=== PATIENT | female | born 1930 | race Caucasian/White ===

== ENCOUNTER 2020-05-03 12:32 | Inpatient (IN) ==
[2020-05-03] MEDS ORDERED: SODIUM CHLORIDE 0.9% 500 ML IV ONE (12:44)
--- NOTE | 2020-05-03 12:51 | Emergency Department Note ---
History of Present Illness General Chief complaint: Abnormal Labs/Diagnostic Testing Stated complaint: abnormal labs / [facility] Time Seen by Provider: 05/03/20 12:39 Source: patient Mode of arrival: ambulatory Limitations: no limitations History of Present Illness This patient comes in after being [facility] from [facility] to have an abnormal labs. She had a white count of 29,000 she is status post gallbladder removal on Wednesday or at [place]. She says she has had a urinary infection although I do not see any antibiotics on her JAN. She is afebrile. She has had some minimal abdominal discomfort and says her bowels been moving. She does say she has urinary discomfort. No problems with her incisions. No cough or shortness of breath. She said that she fell about 2 weeks ago and broke her back. No new numbness or weakness. Home Medications Home Medications Medication Instructions Recorded Confirmed Type acetaminophen 650 mg PO Q4H PRN MDD 3G 05/03/20 05/03/20 History bisacodyl 10 mg WA .Q3D PRN 05/03/20 05/03/20 History diphenhydramine HCl [Benadryl] 25 mg PO HS PRN 05/03/20 05/03/20 History docusate sodium 100 mg PO BID PRN 05/03/20 05/03/20 History levothyroxine 75 mcg PO QAM 05/03/20 05/03/20 History lidocaine 1 patch TOPICAL DAILY 05/03/20 05/03/20 History lisinopril-hydrochlorothiazide 1 tab PO DAILY 05/03/20 05/03/20 History omeprazole 20 mg PO QAM 05/03/20 05/03/20 History simethicone 80 mg PO Q4H PRN 05/03/20 05/03/20 History simvastatin 20 mg PO HS 05/03/20 05/03/20 History tramadol 25 mg PO Q6H PRN 05/03/20 05/03/20 History Allergies Allergy/AdvReac Type Severity Reaction Status Date / Time hydrocodone Allergy Unknown Verified 05/03/20 12:55 Past Med/Surg History Medical History (Updated 05/03/20 @ 19:34 by Jimy Vallecillo MD) Choledocholithiasis Cholelithiasis Hyperlipidemia Hypertension Hypothyroidism Surgical History (Updated 06/19/20 @ 19:34 by Jimy Vallecillo MD) S/P laparoscopic cholecystectomy (Acute) Status post endoscopic retrograde cholangiopancreatography Social History Feels Safe at Home: Yes Smoking Status: Never smoker Immunizations: I have reviewed the nursing notes and notes sent [facility] from the [facility] Review of Systems A total of 10 systems reviewed and were otherwise negative Physical Exam Vital Signs Vital Signs - 24 hr 05/03/20 12:45 05/03/20 12:54 05/03/20 15:21 Temperature 36.5 C Temperature Source Oral Pulse Rate 87 Pulse Rate [Apical] 84 Pulse Rhythm [Apical] Respiratory Rate 20 18 Respiratory Effort / Characteristics Respiratory Depth Blood Pressure 205/99 H Blood Pressure [Right Arm] 179/87 H Blood Pressure Mean 134 Blood Pressure Mean [Right Arm] 117 Pulse Oximetry 96 93 Oxygen Delivery Method Room Air Room Air Room Air Sepsis Recent Fever Within 48 Hours No Sepsis New/Unexplained Change in Mental Status No Sepsis Action Taken by Nursing No Action Required 05/03/20 16:00 05/03/20 17:02 05/03/20 17:36 Temperature Temperature Source Pulse Rate Pulse Rate [Apical] 86 90 85 Pulse Rhythm [Apical] Regular Respiratory Rate 18 18 18 Respiratory Effort / Characteristics Non-Labored Non-Labored Non-Labored Respiratory Depth Normal Normal Normal Blood Pressure Blood Pressure [Right Arm] 186/84 H 193/87 H 186/84 H Blood Pressure Mean Blood Pressure Mean [Right Arm] 118 122 118 Pulse Oximetry 95 96 95 Oxygen Delivery Method Room Air Room Air Room Air Sepsis Recent Fever Within 48 Hours Sepsis New/Unexplained Change in Mental Status Sepsis Action Taken by Nursing 05/03/20 18:30 05/03/20 19:49 Temperature 36.9 C Temperature Source Oral Pulse Rate Pulse Rate [Apical] 84 93 H Pulse Rhythm [Apical] Respiratory Rate 18 20 Respiratory Effort / Characteristics Non-Labored Non-Labored Respiratory Depth Normal Normal Blood Pressure Blood Pressure [Right Arm] 186/95 H 188/78 H Blood Pressure Mean Blood Pressure Mean [Right Arm] 125 114 Pulse Oximetry 93 95 Oxygen Delivery Method Room Air Sepsis Recent Fever Within 48 Hours Sepsis New/Unexplained Change in Mental Status Sepsis Action Taken by Nursing General: Well developed well nourished cachectic older female who appears in no acute distress, breathing comfortably on room air. Normal speech HEENT: Normal cephalic atraumatic. Pupils are equal round and reactive to light. Sclera anicteric. Extraocular movements are intact. Oropharynx is pink with moist mucous membranes. No swelling of the mouth lips or tongue. Neck: Supple with a midline trachea. No meningeal signs or stiffness, no JVD or bruits. No Stridor. Chest: Clear to auscultation bilaterally. No wheezes or rhonchi. No increased work of breathing. Heart: Regular rate and rhythm without murmurs or gallops. Abdomen: Soft nontender, nondistended without rebound guarding or rigidity. Well-healing incisions without redness pus or drainage Extremities: No cyanosis clubbing or edema. No calf tenderness or assymetry Spine/Back. Non tender to palpation. No CVA tenderness Skin: Good turgor without rashes. Neurologic exam: Cranial nerves two through 12 are intact. Motor and sensation are intact and symmetrical throughout. Course Administered Medications Ioversol (Optiray 320 100ml) 94 ml IV ONCE PRN PRN Reason: Interaction Checking Stop: 05/07/20 14:22 Last Admin: 05/03/20 14:24 Dose: 94 ml Documented by: [id number] Discontinued Medications Sodium Chloride (Nss) 500 mls @ 999 mls/hr IV .Q31M ONE Stop: 05/03/20 13:14 Last Infusion: 05/03/20 14:12 Dose: 0 mls/hr Documented by: [id number] Admin: 05/03/20 13:35 Dose: 999 mls/hr Documented by: [id number] Piperacillin Sod/Tazobactam Sod (Zosyn) 4.5 gm in 120 mls @ 240 mls/hr IV NOW ONE Stop: 05/03/20 13:29 Last Infusion: 05/03/20 14:12 Dose: 0 mls/hr Documented by: [id number] Admin: 05/03/20 13:35 Dose: 240 mls/hr Documented by: [id number] Acetaminophen (Ofirmev) 1,000 mg in 100 mls @ 400 mls/hr IV NOW STA Stop: 05/03/20 19:52 Last Admin: 05/03/20 19:50 Dose: 400 mls/hr Documented by: [id number] Critical Care Time Critical Care Time: Yes Total Critical Care Time: 32 Due to the patient's complicated presentation with a postop complication/possible infection, she had to have IV antibiotics IV fluids and multiple consultations and reevaluation in the ED. I have personally spent greater than 32 minutes of critical care time in the direct management of this patient. This includes bedside care, interpretation of diagnostic studies, and testing, discussion with consultants, patient, and family members, and other required patient management activities. This 32 minutes is in excess of all separately billable procedures. Medical Decision Making Differential Diagnosis Differential diagnosis includes, sepsis, UTI, postop complication, electrolyte or metabolic abnormalities, dehydration Medical Records Attestation: I reviewed the patient's medical records. Home Medications Current Medication List: was personally reviewed by me Laboratory Data Attestation: I reviewed the patient's lab results. Result diagrams: 05/03/20 12:45 05/03/20 12:45 Lab Results 05/03/20 05/03/20 05/03/20 Range/Units 12:45 12:45 12:45 WBC 31.04 H* (4.8-10.8) K/uL RBC 4.26 (4.2-5.4) M/uL Hgb 12.7 (12.0-16.0) g/dL Hct 38.7 (37-47) % MCV 90.8 (80-100) fL MCH 29.8 (25-34) pg MCHC 32.8 (32-36) g/dL RDW Std Deviation 48.5 H (36.4-46.3) fL RDW Coeff of Isai 14.6 H (11.5-14.5) % Plt Count 326 (130-400) K/uL MPV 9.8 (7.4-10.4) fL Immature Gran % (Auto) 4.0 % Neut % (Auto) 84.8 % Lymph % (Auto) 4.2 % [place] % (Auto) 6.6 % Eos % (Auto) 0.1 % Baso % (Auto) 0.3 % Immature Gran # (Auto) 1.24 H (0.00-0.02) K/uL Neut # (Auto) 26.33 H (1.4-6.5) K/uL Lymph # (Auto) 1.30 (1.2-3.4) K/uL [place] # (Auto) 2.05 H (0.11-0.59) K/uL Eos # (Auto) 0.02 (0-0.5) K/uL Baso # (Auto) 0.10 (0-0.2) K/uL PT 12.4 H (9.0-12.0) Seconds INR 1.2 H (0.9-1.1) APTT 31.3 H (21.0-31.0) Seconds PTT Ratio 1.1 Sodium (136-145) mmol/L Potassium (3.5-5.1) mmol/L Chloride (98-107) mmol/L Carbon Dioxide (21-32) mmol/L Anion Gap (3-11) BUN (7-18) mg/dl Creatinine (0.6-1.2) mg/dl Est Cr Clr Drug Dosing ml/min Est GFR ( Amer) Est GFR (Non-Af Amer) BUN/Creatinine Ratio (10-20) Glucose (70-99) mg/dl POC Glucose (70-99) mg/dl Lactate (0.4-2.0) mmol/L Calcium (8.5-10.1) mg/dl Magnesium (1.8-2.4) mg/dl Total Bilirubin (0.2-1) mg/dl AST (15-37) U/L ALT (12-78) U/L Alkaline Phosphatase (45-117) U/L Troponin I (0-0.045) ng/ml Total Protein (6.4-8.2) gm/dl Albumin (3.4-5.0) gm/dl Globulin (2.5-4.0) gm/dl Albumin/Globulin Ratio (0.9-2) Procalcitonin 3.18 H (0-0.5) ng/ml Urine Color Urine Appearance (Clear) Urine pH (4.5-7.5) Ur Specific [place] (1.000-1.030) Urine Protein (Negative) Urine Glucose (UA) (Negative) Urine Ketones (Negative) Urine Blood (Negative) Urine Nitrite (Negative) Urine Bilirubin (Negative) Urine Urobilinogen (Negative) Ur Leukocyte Esterase (Negative) Urine WBC (Auto) (0-5) /hpf Urine RBC (Auto) (0-4) /hpf U Hyaline Cast (Auto) (0-5) /lpf U Epithel Cells (Auto) (0-5) /lpf Urine Bacteria (Auto) (Negative) 05/03/20 05/03/20 05/03/20 Range/Units 12:45 12:45 12:45 WBC (4.8-10.8) K/uL RBC (4.2-5.4) M/uL Hgb (12.0-16.0) g/dL Hct (37-47) % MCV (80-100) fL MCH (25-34) pg MCHC (32-36) g/dL RDW Std Deviation (36.4-46.3) fL RDW Coeff of Isai (11.5-14.5) % Plt Count (130-400) K/uL MPV (7.4-10.4) fL Immature Gran % (Auto) % Neut % (Auto) % Lymph % (Auto) % [place] % (Auto) % Eos % (Auto) % Baso % (Auto) % Immature Gran # (Auto) (0.00-0.02) K/uL Neut # (Auto) (1.4-6.5) K/uL Lymph # (Auto) (1.2-3.4) K/uL [place] # (Auto) (0.11-0.59) K/uL Eos # (Auto) (0-0.5) K/uL Baso # (Auto) (0-0.2) K/uL PT (9.0-12.0) Seconds INR (0.9-1.1) APTT (21.0-31.0) Seconds PTT Ratio Sodium 132 L (136-145) mmol/L Potassium 3.0 L (3.5-5.1) mmol/L Chloride 94 L (98-107) mmol/L Carbon Dioxide 29 (21-32) mmol/L Anion Gap 9.0 (3-11) BUN 32 H (7-18) mg/dl Creatinine 0.82 (0.6-1.2) mg/dl Est Cr Clr Drug Dosing 33.6 ml/min Est GFR ( Amer) 73.5 Est GFR (Non-Af Amer) 63.4 BUN/Creatinine Ratio 39.6 H (10-20) Glucose 88 (70-99) mg/dl POC Glucose 86 (70-99) mg/dl Lactate 1.4 (0.4-2.0) mmol/L Calcium 8.6 (8.5-10.1) mg/dl Magnesium 2.0 (1.8-2.4) mg/dl Total Bilirubin 0.5 (0.2-1) mg/dl AST 31 (15-37) U/L ALT 24 (12-78) U/L Alkaline Phosphatase 308 H (45-117) U/L Troponin I < 0.015 (0-0.045) ng/ml Total Protein 6.5 (6.4-8.2) gm/dl Albumin 1.8 L (3.4-5.0) gm/dl Globulin 4.7 H (2.5-4.0) gm/dl Albumin/Globulin Ratio 0.4 L (0.9-2) Procalcitonin (0-0.5) ng/ml Urine Color Urine Appearance (Clear) Urine pH (4.5-7.5) Ur Specific [place] (1.000-1.030) Urine Protein (Negative) Urine Glucose (UA) (Negative) Urine Ketones (Negative) Urine Blood (Negative) Urine Nitrite (Negative) Urine Bilirubin (Negative) Urine Urobilinogen (Negative) Ur Leukocyte Esterase (Negative) Urine WBC (Auto) (0-5) /hpf Urine RBC (Auto) (0-4) /hpf U Hyaline Cast (Auto) (0-5) /lpf U Epithel Cells (Auto) (0-5) /lpf Urine Bacteria (Auto) (Negative) 05/03/20 Range/Units 15:30 WBC (4.8-10.8) K/uL RBC (4.2-5.4) M/uL Hgb (12.0-16.0) g/dL Hct (37-47) % MCV (80-100) fL MCH (25-34) pg MCHC (32-36) g/dL RDW Std Deviation (36.4-46.3) fL RDW Coeff of Isai (11.5-14.5) % Plt Count (130-400) K/uL MPV (7.4-10.4) fL Immature Gran % (Auto) % Neut % (Auto) % Lymph % (Auto) % [place] % (Auto) % Eos % (Auto) % Baso % (Auto) % Immature Gran # (Auto) (0.00-0.02) K/uL Neut # (Auto) (1.4-6.5) K/uL Lymph # (Auto) (1.2-3.4) K/uL [place] # (Auto) (0.11-0.59) K/uL Eos # (Auto) (0-0.5) K/uL Baso # (Auto) (0-0.2) K/uL PT (9.0-12.0) Seconds INR (0.9-1.1) APTT (21.0-31.0) Seconds PTT Ratio Sodium (136-145) mmol/L Potassium (3.5-5.1) mmol/L Chloride (98-107) mmol/L Carbon Dioxide (21-32) mmol/L Anion Gap (3-11) BUN (7-18) mg/dl Creatinine (0.6-1.2) mg/dl Est Cr Clr Drug Dosing ml/min Est GFR ( Amer) Est GFR (Non-Af Amer) BUN/Creatinine Ratio (10-20) Glucose (70-99) mg/dl POC Glucose (70-99) mg/dl Lactate (0.4-2.0) mmol/L Calcium (8.5-10.1) mg/dl Magnesium (1.8-2.4) mg/dl Total Bilirubin (0.2-1) mg/dl AST (15-37) U/L ALT (12-78) U/L Alkaline Phosphatase (45-117) U/L Troponin I (0-0.045) ng/ml Total Protein (6.4-8.2) gm/dl Albumin (3.4-5.0) gm/dl Globulin (2.5-4.0) gm/dl Albumin/Globulin Ratio (0.9-2) Procalcitonin (0-0.5) ng/ml Urine Color Yellow Urine Appearance Clear (Clear) Urine pH 6.0 (4.5-7.5) Ur Specific [place] 1.035 H (1.000-1.030) Urine Protein 1+ H (Negative) Urine Glucose (UA) Negative (Negative) Urine Ketones 1+ H (Negative) Urine Blood 2+ H (Negative) Urine Nitrite Negative (Negative) Urine Bilirubin Negative (Negative) Urine Urobilinogen Negative (Negative) Ur Leukocyte Esterase Negative (Negative) Urine WBC (Auto) 1-5 (0-5) /hpf Urine RBC (Auto) 10-30 H (0-4) /hpf U Hyaline Cast (Auto) 1-5 (0-5) /lpf U Epithel Cells (Auto) 5-10 H (0-5) /lpf Urine Bacteria (Auto) Negative (Negative) Imaging Data Attestation: I personally reviewed and interpreted this imaging study as follows: My Impression: Chest x-ray no acute infiltrate, failure, pneumothorax. Small pleural effusion. Radiologist's Impression: CAT scan of the abdomen pelvis with IV contrast 1. The gallbladder is surgically absent and the common bile duct stent is in place. Pneumobilia suggests patency of the stent. 2. There are several large and multiloculated fluid collections in the upper and mid abdomen as detailed above. Given the patient's history and leukocytosis these are highly concerning for abscesses. Bile leak would be impossible to exclude, and if there is clinical concern for bile leak a nuclear hepatobiliary scan should be considered. 3. Small to moderate left pleural effusion with associated atelectasis. 4. Gastric and duodenal edema is likely on a reactive basis. 5. There is a mild and subacute appearing compression fracture of L1. Correlate for point tenderness. 6. Foci of gas within the bladder lumen are likely related to rotation. Correlation with clinical findings and urinalysis will be required. 7. Trace abdominopelvic ascites. 8. Additional findings as above. Chest x-ray there is a small pleural effusion otherwise no acute ECG Data Attestation: I personally reviewed and interpreted this ECG as follows: Indication: + weakness Rate (beats per minute): 93 ECG Intervals/blocks: + Normal QRS, + Normal QT and + Normal WA ECG ST segments: + Normal ST segments ECG Findings: + Poor R wave progression Comparison ECG Date: no prior available MDM Narrative This patient comes in as described above. She was ent [facility] after having an extremely elevated white count of 29,000. Given her recent surgery there certainly concern for sepsis. She tells me she has urinary symptoms as well. Her incisions do look well. Her blood sugar was also low on the labs were checked at 44 we checked a BSG here and was 82 which is much improved. She is normotensive and afebrile here but with a high white count I still feel that she is at risk for sepsis in light of this we did order empiric antibiotic with Zosyn 4.5 g IV. Our pharmacist to confirm with the [facility] that she has no known antibiotic allergies and her only allergy was hydrocodone. She was given an IV fluid bolus multiple blood test was obtained including blood cultures urinalysis and urine culture and chest x-ray. She was reassessed frequently. Her white count was significant elevated above 30,000. Chest x-ray was a small pleural effusion otherwise no acute findings. CAT scan shows fluid collections which could either be related to infection or bile leak. With the elevated white count there is concern for abscess. I did consult Dr. Bryant from surgery as well as Dr. Monahan from GI and they both saw her in the emergency department. The patient has remained medically stable and looks well her abdomen is relatively benign and not severely tender. Dr. Monahan feels that he will place another drain endoscopically and feel she can stay here for treatment. I talked to the daughter multiple times on the phone and she agrees with the plan. The patient will be admitted for further treatment and evaluation. Continuous cardiac monitoring: An order was placed for continuous cardiac monitoring. The patient was noted to have a rate of 84. Impression & Plan Bile leak, postoperative, Abnormal CT of the abdomen, S/P laparoscopic cholecystectomy, Elevated WBC count Discharge Plan Visit Data Chief Complaint: Abnormal Labs/Diagnostic Testing Stated Complaint: abnormal labs / [facility] ED Provider: Jimy Vallecillo Discharge Problem: Bile leak, postoperative, Abnormal CT of the abdomen, S/P laparoscopic cholecystectomy, Elevated WBC count Forms Stand Alone Forms: [facility] [employer] Prescriptions Prescriptions: No Action bisacodyl 10 mg Suppository 10 mg WA .Q3D PRN (Reason: Constipation) RF: 0 omeprazole 20 mg Capsule,Delayed Release(Dr/Ec) 20 mg PO QAM RF: 0 lidocaine 4 % Adhesive Patch,Medicated 1 patch TOPICAL DAILY RF: 0 diphenhydramine HCl [Benadryl] 25 mg Capsule 25 mg PO HS PRN (Reason: .ITCH OR INSOMNIA) RF: 0 docusate sodium 100 mg Capsule 100 mg PO BID PRN (Reason: Constipation) RF: 0 levothyroxine 75 mcg Tablet 75 mcg PO QAM RF: 0 lisinopril-hydrochlorothiazide 20-12.5 mg Tablet 1 tab PO DAILY RF: 0 simvastatin 20 mg Tablet 20 mg PO HS RF: 0 tramadol 50 mg Tablet 25 mg PO Q6H PRN (Reason: .MOD-SEVERE PAIN # 6-10) RF: 0 acetaminophen 325 mg Tablet 650 mg PO Q4H MDD 3G PRN (Reason: .# 1-5 PAIN) RF: 0 simethicone 80 mg Tablet,Chewable 80 mg PO Q4H PRN (Reason: .GAS) RF: 0 Discharge Problem: Elevated WBC count Qualifiers: Leukocytosis type: other Qualified Code(s): D72.828 - Other elevated white blood cell count
[2020-05-03] MEDS ORDERED: PIPERACILLIN/TAZOBACTAM 4.5 GM/120 ML BAG IV ONE (13:00)
[2020-05-03 13:11] LABS: INR 1.2 (0.9-1.1); Partial Thromboplastin Ratio 1.1; Partial Thromboplastin Time 31.3 Seconds (21.0-31.0); Prothrombin Time 12.4 Seconds (9.0-12.0)
[2020-05-03 13:16] LABS: Alanine Aminotransferase 24 U/L (12-78); Albumin Level 1.8 gm/dl (3.4-5.0); Aspartate Aminotransferase 31 U/L (15-37); BUN Creatinine Ratio 39.6 (10-20); Blood Urea Nitrogen 32 mg/dl (7-18); Calcium 8.6 mg/dl (8.5-10.1); Carbon Dioxide 29 mmol/L (21-32); Chloride 94 mmol/L (98-107); Creatinine Clr Calc Pharmacy 33.6 ml/min; Est GFR (African American) 73.5; Est GFR (Non-African American) 63.4; Glucose 88 mg/dl (70-99); Sodium 132 mmol/L (136-145)
[2020-05-03 13:17] LABS: Hematocrit (blood only) 38.7 % (37-47); Hemoglobin 12.7 g/dL (12.0-16.0); Mean Corpuscular Hemoglobin 29.8 pg (25-34); Mean Corpuscular Hgb Conc 32.8 g/dL (32-36); Mean Corpuscular Volume 90.8 fL (80-100); Mean Platelet Volume 9.8 fL (7.4-10.4); Platelet Count 326 K/uL (130-400); RDW Coefficient of Variation 14.6 % (11.5-14.5); RDW Standard Deviation 48.5 fL (36.4-46.3); Red Blood Count 4.26 M/uL (4.2-5.4); White Blood Count 31.04 K/uL (4.8-10.8)
--- NOTE | 2020-05-03 13:18 | XRay Report ---
XR chest 1V portable CLINICAL HISTORY: SEPSIS dyspnea COMPARISON STUDY: No previous studies for comparison. FINDINGS: Small left pleural effusion. Lungs otherwise appear clear. Right hemidiaphragm is smooth. IMPRESSION: Pleural effusion left base. ACT 112: Negative or not required by law. The above report was generated using voice recognition software. It may contain grammatical, syntax or spelling errors. Electronically signed by: Froilan Stinson M.D. 05/03/2020 1:16 PM
[2020-05-03 13:21] LABS: Albumin Globulin Ratio 0.4 (0.9-2); Alkaline Phosphatase 308 U/L (45-117); Bilirubin,Total 0.5 mg/dl (0.2-1); Globulin 4.7 gm/dl (2.5-4.0); Total Protein 6.5 gm/dl (6.4-8.2); Troponin I < 0.015 ng/ml (0-0.045)
[2020-05-03] MEDS ORDERED: IOVERSOL 100ml IV PRN (14:23)
[2020-05-03 14:46] LABS: Basophils % (auto) 0.3 %; Eosinophils # (auto) 0.02 K/uL (0-0.5); Eosinophils % (auto) 0.1 %; Immature Granulocytes # (auto) 1.24 K/uL (0.00-0.02); Lymphocytes % (auto) 4.2 %; Monocytes # (auto) 2.05 K/uL (0.11-0.59); Monocytes % (auto) 6.6 %; Neutrophils # (auto) 26.33 K/uL (1.4-6.5); Neutrophils % (auto) 84.8 %
--- NOTE | 2020-05-03 14:47 | CT Scan Report ---
CT SCAN OF THE ABDOMEN AND PELVIS WITH IV CONTRAST CLINICAL HISTORY: Fever. Status post cholecystectomy. Leukocytosis. COMPARISON STUDY: No priors. TECHNIQUE: Following the IV administration of 94 cc of Optiray 320, CT scan of the abdomen and pelvi s is performed from the lung bases to the proximal femora. Images are reviewed in the axial, sagittal , and coronal planes. IV contrast was administered without complication. A dose lowering technique wa s utilized adhering to the principles of ALARA. CT DOSE: 273.77 mGycm FINDINGS: Lung bases: The heart is normal in size noting a small pericardial effusion. The coronary arteries ar e densely calcified. There is a small to moderate left pleural effusion with associated left basilar atelectasis. Dependent atelectasis is also seen at the right lung base. Liver: The contrast-enhanced liver is normal in size, contour, and attenuation. There is minimal intr ahepatic biliary ductal dilatation. The hepatic veins and portal veins are patent. Gallbladder: The gallbladder surgically absent noting clips in the gallbladder fossa. A common bile d uct stent is in place. Pneumobilia suggests patency of the stent. Spleen: Normal in size and attenuation. Pancreas: Moderately atrophic and grossly unremarkable. Adrenal glands: Unremarkable. Kidneys: The contrast enhanced kidneys demonstrate mild cortical atrophy and are without hydronephros is. The kidneys enhance symmetrically. Numerous subcentimeter cortical hypodensities likely represent cysts but are too small for definitive characterization. No enhancing cortical mass is clearly ident ified. Abdominal vasculature: There is advanced atherosclerotic calcification and mild ectasia of the abdomi nal aorta. Bowel: Edema of the stomach and duodenum is likely on a reactive basis. There is no bowel obstruction . Moderate diverticulosis is noted in the sigmoid colon without CT evidence of acute diverticulitis. The appendix is well-visualized and normal. Peritoneum: There is trace perihepatic and perisplenic ascites, as well as trace free fluid in the pe lvis. No intraperitoneal free air is identified. There are several multiloculated complex fluid colle ctions identified in the upper and mid abdomen. The largest collection is located between the stomach and the left lobe of the liver as seen on image #115. This measures approximately 6 x 7 x 14 cm in a ggregate dimension, and a loculation extends superiorly along the anterior margin of the spleen to th e left hemidiaphragm. A multiloculated collection tracking along the mesentery extends from the anter ior pancreatic head and inferior margin of the stomach tracking inferiorly to level of the pelvic inl et as seen on image #189. This envelopes several mesenteric vessels and measures approximately 10.5 x 7 x 4 cm. A small subhepatic loculated collection on image #141 measures approximately 3.5 x 4.5 x 2 .5 cm. Lymphadenopathy: None. Pelvic viscera: The bladder is distended and there are foci of intraluminal gas. The bladder is other ramesh normal as imaged. The uterus is surgically absent. No adnexal lesion is seen. Skeletal structures: The skeletal structures are osteopenic. Moderate lumbosacral spondylosis is obse rved. There is a mild and subacute appearing superior endplate compression fracture of L1. No lytic o r blastic lesions are seen. There are healed left pubic ring fractures. IMPRESSION: 1. The gallbladder is surgically absent and the common bile duct stent is in place. Pneumobilia sugge sts patency of the stent. 2. There are several large and multiloculated fluid collections in the upper and mid abdomen as detai led above. Given the patient's history and leukocytosis these are highly concerning for abscesses. Bi le leak would be impossible to exclude, and if there is clinical concern for bile leak a nuclear hepa tobiliary scan should be considered. 3. Small to moderate left pleural effusion with associated atelectasis. 4. Gastric and duodenal edema is likely on a reactive basis. 5. There is a mild and subacute appearing compression fracture of L1. Correlate for point tenderness. 6. Foci of gas within the bladder lumen are likely related to rotation. Correlation with clinical fin dings and urinalysis will be required. 7. Trace abdominopelvic ascites. 8. Additional findings as above. ACT 112: Negative or not required by law. Electronically signed by: Panchito Amador M.D. 05/03/2020 2:46 PM
[2020-05-03 15:45] LABS: Appearance Urine Clear (Clear); Bacteria Urine Automated Negative (Negative); Bilirubin Urine Negative (Negative); Blood Urine 2+ (Negative); Color Urine Yellow; Glucose Urine UA Negative (Negative); Ketones Urine 1+ (Negative); Leukocyte Esterase Urine Negative (Negative); Nitrite Urine Negative (Negative); Protein Urine 1+ (Negative); Specific Gravity Urine 1.035 (1.000-1.030); Urobilinogen Urine Negative (Negative)
--- NOTE | 2020-05-03 16:00 | Gastrointestinal Consultation ---
Date of Consultation May 03, 2020 Assessment & Plan (1) Abnormal CT of the abdomen: 89 year old female presenting from [facility] with leukocytosis s/p ERCP for CBD stone, CCY last week, CTAP on admission w/ large and multiloculated fluid collections in the upper and mid abdomen concern for abscesses vs bile leak. She is awake, alert and oriented. Afebrile but with leukocytosis. ALK elevated but other LFTS unremarkable. Will discuss with attending. Thank you for allowing us to participate in the care of this patient. Please call with any acute changes, questions or concerns. Please see addendum below with additional recommendation from my supervising physician. Supervising Physician Co-Signing Physician Notes I performed a history and physical examination of the patient today, including specifically on physical exam - soft abdomen. I have discussed the patient's management with the advanced practitioner. Please refer to the nurse practitioner's note for the documented findings and plan of care. Patient had ERCP with CBD stent placement last week followed by Alexa gordon. She had unusual gallbladder with septation, per OR report, due to the width of the duct, it was elected to staple across it. She was discharged fine however had labs checked today showing leukocytosis hence referred to the hospital. She has mild abdominal pain however no pain now, no fever or chills. On exam abdomen is soft. CT scar abdomen reviewed with radiologist, there is a large, walled off fluid collection which is consistent with ? Biloma, Bile leak or abscess. I discussed with the patient regarding transfer for IR guided drain but she refused transfer and would like to stay here, I then discussed the option of EUS guided drainage and she agreed, at the same time will perform a cholangiogram to clarify bile leak. Start ABx. History of Present Illness Reason for Consultation: ?bile leak Requesting Physician: Annette Attending Physician: Annette History of Present Illness 89 year old female who is s/p ERCP April 25 and CCY last week in [place] presents from senior living w/ leukocytosis - GI called from surgery regarding abnormal CTAP. She notes she has had intermittent abdominal pain but was sent from nursing facility for elevated WBC. Today no abdominal pain. Suggests yesterday she did have upper abd pain explained as gas/bloating. No nausea, vomiting. Passing gas/ moving bowels. No fever, chills, CP, SOB. CTAP: The gallbladder is surgically absent and the common bile duct stent is in place. Pneumobilia suggests patency of the stent. There are several large and multiloculated fluid collections in the upper and mid abdomen as detailed above. Given the patient's history and leukocytosis these are highly concerning for abscesses. Bile leak would be impossible to exclude, and if there is clinical concern for bile leak a nuclear hepatobiliary scan should be considered. Small to moderate left pleural effusion with associated atelectasis.. Gastric and duodenal edema is likely on a reactive basis. Allergies Allergy/AdvReac Type Severity Reaction Status Date / Time hydrocodone Allergy Unknown Verified 05/03/20 12:55 Home Medications Home Medications Medication Instructions Recorded Confirmed Type acetaminophen 650 mg PO Q4H PRN MDD 3G 05/03/20 05/03/20 History bisacodyl 10 mg NC .Q3D PRN 05/03/20 05/03/20 History diphenhydramine HCl [Benadryl] 25 mg PO HS PRN 05/03/20 05/03/20 History docusate sodium 100 mg PO BID PRN 05/03/20 05/03/20 History levothyroxine 75 mcg PO QAM 05/03/20 05/03/20 History lidocaine 1 patch TOPICAL DAILY 05/03/20 05/03/20 History lisinopril-hydrochlorothiazide 1 tab PO DAILY 05/03/20 05/03/20 History omeprazole 20 mg PO QAM 05/03/20 05/03/20 History simethicone 80 mg PO Q4H PRN 05/03/20 05/03/20 History simvastatin 20 mg PO HS 05/03/20 05/03/20 History tramadol 25 mg PO Q6H PRN 05/03/20 05/03/20 History Patient History Medical History (Updated 05/03/20 @ 17:01 by Nora Hawkins PA-C) Choledocholithiasis Cholelithiasis Hyperlipidemia Hypertension Hypothyroidism Surgical History (Updated 05/03/20 @ 17:22 by Nora Hawkins PA-C) S/P laparoscopic cholecystectomy Status post endoscopic retrograde cholangiopancreatography Social History Feels Safe at Home: Yes Smoking Status: Never smoker Review of Systems Constitutional: no fever, no chills and no fatigue Respiratory: no cough and no dyspnea Cardiovascular: no chest pain Gastrointestinal: no abdominal pain, no nausea, no coffee ground emesis, no blood in stools and no melena Physical Exam Constitutional: + ill appearing; no acute distress chronically ill appearing elderly female in no acute distress Neck: trachea midline Respiratory: normal respiratory effort Gastrointestinal (Abdomen): Percussion/Palpation: abdomen soft; abdomen nontender, no guarding and abdomen not rigid Skin: no rashes, warm and dry Results & Data ([facility]) Vital Signs (Past 12 Hours) Vital Signs Temp Pulse Pulse Resp BP BP Pulse Ox 05/03/20 15:21 84 18 179/87 H 93 05/03/20 12:54 36.5 C 87 20 205/99 H 96 Laboratory Results 05/03/20 05/03/20 05/03/20 Range/Units 15:30 12:45 12:45 WBC (4.8-10.8) K/uL RBC (4.2-5.4) M/uL Hgb (12.0-16.0) g/dL Hct (37-47) % MCV (80-100) fL MCH (25-34) pg MCHC (32-36) g/dL RDW Std Deviation (36.4-46.3) fL RDW Coeff of Isai (11.5-14.5) % Plt Count (130-400) K/uL MPV (7.4-10.4) fL Immature Gran % (Auto) % Neut % (Auto) % Lymph % (Auto) % [place] % (Auto) % Eos % (Auto) % Baso % (Auto) % Immature Gran # (Auto) (0.00-0.02) K/uL Neut # (Auto) (1.4-6.5) K/uL Lymph # (Auto) (1.2-3.4) K/uL [place] # (Auto) (0.11-0.59) K/uL Eos # (Auto) (0-0.5) K/uL Baso # (Auto) (0-0.2) K/uL PT (9.0-12.0) Seconds INR (0.9-1.1) APTT (21.0-31.0) Seconds PTT Ratio Sodium (136-145) mmol/L Potassium (3.5-5.1) mmol/L Chloride (98-107) mmol/L Carbon Dioxide (21-32) mmol/L Anion Gap (3-11) BUN (7-18) mg/dl Creatinine (0.6-1.2) mg/dl Est Cr Clr Drug Dosing ml/min Est GFR ( Amer) Est GFR (Non-Af Amer) BUN/Creatinine Ratio (10-20) Glucose (70-99) mg/dl POC Glucose 86 (70-99) mg/dl Lactate 1.4 (0.4-2.0) mmol/L Calcium (8.5-10.1) mg/dl Magnesium (1.8-2.4) mg/dl Total Bilirubin (0.2-1) mg/dl AST (15-37) U/L ALT (12-78) U/L Alkaline Phosphatase (45-117) U/L Troponin I (0-0.045) ng/ml Total Protein (6.4-8.2) gm/dl Albumin (3.4-5.0) gm/dl Globulin (2.5-4.0) gm/dl Albumin/Globulin Ratio (0.9-2) Procalcitonin (0-0.5) ng/ml Urine Color Yellow Urine Appearance Clear (Clear) Urine pH 6.0 (4.5-7.5) Ur Specific [place] 1.035 H (1.000-1.030) Urine Protein 1+ H (Negative) Urine Glucose (UA) Negative (Negative) Urine Ketones 1+ H (Negative) Urine Blood 2+ H (Negative) Urine Nitrite Negative (Negative) Urine Bilirubin Negative (Negative) Urine Urobilinogen Negative (Negative) Ur Leukocyte Esterase Negative (Negative) Urine WBC (Auto) 1-5 (0-5) /hpf Urine RBC (Auto) 10-30 H (0-4) /hpf U Hyaline Cast (Auto) 1-5 (0-5) /lpf U Epithel Cells (Auto) 5-10 H (0-5) /lpf Urine Bacteria (Auto) Negative (Negative) 05/03/20 05/03/20 05/03/20 Range/Units 12:45 12:45 12:45 WBC 31.04 H* (4.8-10.8) K/uL RBC 4.26 (4.2-5.4) M/uL Hgb 12.7 (12.0-16.0) g/dL Hct 38.7 (37-47) % MCV 90.8 (80-100) fL MCH 29.8 (25-34) pg MCHC 32.8 (32-36) g/dL RDW Std Deviation 48.5 H (36.4-46.3) fL RDW Coeff of Isai 14.6 H (11.5-14.5) % Plt Count 326 (130-400) K/uL MPV 9.8 (7.4-10.4) fL Immature Gran % (Auto) 4.0 % Neut % (Auto) 84.8 % Lymph % (Auto) 4.2 % [place] % (Auto) 6.6 % Eos % (Auto) 0.1 % Baso % (Auto) 0.3 % Immature Gran # (Auto) 1.24 H (0.00-0.02) K/uL Neut # (Auto) 26.33 H (1.4-6.5) K/uL Lymph # (Auto) 1.30 (1.2-3.4) K/uL [place] # (Auto) 2.05 H (0.11-0.59) K/uL Eos # (Auto) 0.02 (0-0.5) K/uL Baso # (Auto) 0.10 (0-0.2) K/uL PT 12.4 H (9.0-12.0) Seconds INR 1.2 H (0.9-1.1) APTT 31.3 H (21.0-31.0) Seconds PTT Ratio 1.1 Sodium 132 L (136-145) mmol/L Potassium 3.0 L (3.5-5.1) mmol/L Chloride 94 L (98-107) mmol/L Carbon Dioxide 29 (21-32) mmol/L Anion Gap 9.0 (3-11) BUN 32 H (7-18) mg/dl Creatinine 0.82 (0.6-1.2) mg/dl Est Cr Clr Drug Dosing 33.6 ml/min Est GFR ( Amer) 73.5 Est GFR (Non-Af Amer) 63.4 BUN/Creatinine Ratio 39.6 H (10-20) Glucose 88 (70-99) mg/dl POC Glucose (70-99) mg/dl Lactate (0.4-2.0) mmol/L Calcium 8.6 (8.5-10.1) mg/dl Magnesium 2.0 (1.8-2.4) mg/dl Total Bilirubin 0.5 (0.2-1) mg/dl AST 31 (15-37) U/L ALT 24 (12-78) U/L Alkaline Phosphatase 308 H (45-117) U/L Troponin I < 0.015 (0-0.045) ng/ml Total Protein 6.5 (6.4-8.2) gm/dl Albumin 1.8 L (3.4-5.0) gm/dl Globulin 4.7 H (2.5-4.0) gm/dl Albumin/Globulin Ratio 0.4 L (0.9-2) Procalcitonin (0-0.5) ng/ml Urine Color Urine Appearance (Clear) Urine pH (4.5-7.5) Ur Specific [place] (1.000-1.030) Urine Protein (Negative) Urine Glucose (UA) (Negative) Urine Ketones (Negative) Urine Blood (Negative) Urine Nitrite (Negative) Urine Bilirubin (Negative) Urine Urobilinogen (Negative) Ur Leukocyte Esterase (Negative) Urine WBC (Auto) (0-5) /hpf Urine RBC (Auto) (0-4) /hpf U Hyaline Cast (Auto) (0-5) /lpf U Epithel Cells (Auto) (0-5) /lpf Urine Bacteria (Auto) (Negative) 05/03/20 Range/Units 12:45 WBC (4.8-10.8) K/uL RBC (4.2-5.4) M/uL Hgb (12.0-16.0) g/dL Hct (37-47) % MCV (80-100) fL MCH (25-34) pg MCHC (32-36) g/dL RDW Std Deviation (36.4-46.3) fL RDW Coeff of Isai (11.5-14.5) % Plt Count (130-400) K/uL MPV (7.4-10.4) fL Immature Gran % (Auto) % Neut % (Auto) % Lymph % (Auto) % [place] % (Auto) % Eos % (Auto) % Baso % (Auto) % Immature Gran # (Auto) (0.00-0.02) K/uL Neut # (Auto) (1.4-6.5) K/uL Lymph # (Auto) (1.2-3.4) K/uL [place] # (Auto) (0.11-0.59) K/uL Eos # (Auto) (0-0.5) K/uL Baso # (Auto) (0-0.2) K/uL PT (9.0-12.0) Seconds INR (0.9-1.1) APTT (21.0-31.0) Seconds PTT Ratio Sodium (136-145) mmol/L Potassium (3.5-5.1) mmol/L Chloride (98-107) mmol/L Carbon Dioxide (21-32) mmol/L Anion Gap (3-11) BUN (7-18) mg/dl Creatinine (0.6-1.2) mg/dl Est Cr Clr Drug Dosing ml/min Est GFR ( Amer) Est GFR (Non-Af Amer) BUN/Creatinine Ratio (10-20) Glucose (70-99) mg/dl POC Glucose (70-99) mg/dl Lactate (0.4-2.0) mmol/L Calcium (8.5-10.1) mg/dl Magnesium (1.8-2.4) mg/dl Total Bilirubin (0.2-1) mg/dl AST (15-37) U/L ALT (12-78) U/L Alkaline Phosphatase (45-117) U/L Troponin I (0-0.045) ng/ml Total Protein (6.4-8.2) gm/dl Albumin (3.4-5.0) gm/dl Globulin (2.5-4.0) gm/dl Albumin/Globulin Ratio (0.9-2) Procalcitonin 3.18 H (0-0.5) ng/ml Urine Color Urine Appearance (Clear) Urine pH (4.5-7.5) Ur Specific [place] (1.000-1.030) Urine Protein (Negative) Urine Glucose (UA) (Negative) Urine Ketones (Negative) Urine Blood (Negative) Urine Nitrite (Negative) Urine Bilirubin (Negative) Urine Urobilinogen (Negative) Ur Leukocyte Esterase (Negative) Urine WBC (Auto) (0-5) /hpf Urine RBC (Auto) (0-4) /hpf U Hyaline Cast (Auto) (0-5) /lpf U Epithel Cells (Auto) (0-5) /lpf Urine Bacteria (Auto) (Negative)
--- NOTE | 2020-05-03 16:51 | Surgery Consultation ---
Date of Consultation May 03, 2020 Assessment & Plan (1) Abnormal CT of the abdomen: 89 year-old female who is 8 days s/p ERCP with CBD stone removal and stent placement and 7 days s/p laparoscopic cholecystectomy at [facility]. Presented to ED today with complaint of abdominal pain, fever, and leukocytosis. CT scan showing multiple fluid collections in mid upper abdomen with leukocytosis of 31K. Question of bile leak and biloma vs intra-abdominal abscesses. Plan: Dr. Bryant discussed patient with Dr. Brown who plans to drain collections via endoscopic transgastric drainage. Suggest IV broad spectrum antibiotics Medicine admission Keep npo (2) S/P laparoscopic cholecystectomy: postop incisions c/d/i questionable bile leak vs intra-abdominal abscess plan as above Dr. Bryant has seen and examined pt, see addendum for further recommendations/plan. Supervising Physician Co-Signing Physician Notes I interviewed and examined this patient I agree with the above note. She has intra-abdominal fluid collections. The etiology is unclear. May be biloma versus abscess. The options would be percutaneous ultrasound or CT-guided merlin decker versus endoscopic drainage. I discussed this with Dr. Brown who would favor the endoscopic drainage. She is going to be admitted. She will be placed on antibiotics. He is planning for that procedure tomorrow. History of Present Illness Reason for Consultation: abnormal ct scan s/p laparoscopic cholecystectomy questionable bile leak History of Present Illness Ashley is a 89 year-old female who underwent ERCP with stone removal and CBD stent placement on 04/25/2020 and subsequent laparoscopic cholecystectomy on 04/26/2020 at [facility]. Patient was discharged to rehab. States she had severe gas pains that persisted this week. Denies of any chills. Nausea or vomiting. States she has passed gas and had bowel movement. ER work-up showed leukocytosis of 31K. T. bili and LFTS wnl. CT scan of abdomen and pelvis with IV Contrast showing multiple fluid collections in the upper mid abdomen in which abscess or bile leak is considered. Largest collection measuring 6 x 7 x 14 cm from left lobe of liver to the left hemidiaphragm. Ashley states that those gas pains have now resolved. Denies of significant abdominal pain, nausea or vomiting at this time. Allergies Allergy/AdvReac Type Severity Reaction Status Date / Time hydrocodone Allergy Unknown Verified 05/03/20 12:55 Home Medications Home Medications Medication Instructions Recorded Confirmed Type acetaminophen 650 mg PO Q4H PRN MDD 3G 05/03/20 05/03/20 History bisacodyl 10 mg NM .Q3D PRN 05/03/20 05/03/20 History diphenhydramine HCl [Benadryl] 25 mg PO HS PRN 05/03/20 05/03/20 History docusate sodium 100 mg PO BID PRN 05/03/20 05/03/20 History levothyroxine 75 mcg PO QAM 05/03/20 05/03/20 History lidocaine 1 patch TOPICAL DAILY 05/03/20 05/03/20 History lisinopril-hydrochlorothiazide 1 tab PO DAILY 05/03/20 05/03/20 History omeprazole 20 mg PO QAM 05/03/20 05/03/20 History simethicone 80 mg PO Q4H PRN 05/03/20 05/03/20 History simvastatin 20 mg PO HS 05/03/20 05/03/20 History tramadol 25 mg PO Q6H PRN 05/03/20 05/03/20 History Patient History Medical History Choledocholithiasis Cholelithiasis Hyperlipidemia Hypertension Hypothyroidism Surgical History S/P laparoscopic cholecystectomy (Acute) Status post endoscopic retrograde cholangiopancreatography Social History Feels Safe at Home: Yes Smoking Status: Never smoker Hx Alcohol Use: No Review of Systems Review of Systems: All systems reviewed & are unremarkable except as noted in HPI & below Physical Exam Constitutional: + thin; no acute distress elderly female in no acute distress Respiratory: normal respiratory effort, lungs clear to auscultation Cardiovascular: RRR, no murmur, no edema Gastrointestinal (Abdomen): Inspection/Auscultation: abdomen normal to inspection; abdomen not distended Percussion/Palpation: + abdomen tender (upper abdomen on palpation) and abdomen soft; no guarding and abdomen not rigid Skin: no rashes, warm and dry + incision (laparoscopic incisions clean/dry/intact, steri present) Psychiatric: Orientation: alert and oriented x 3 Results & Data Vital Signs (Past 12 Hours) Vital Signs Temp Pulse Pulse Resp BP BP Pulse Ox 05/03/20 16:00 86 18 186/84 H 95 05/03/20 15:21 84 18 179/87 H 93 05/03/20 12:54 36.5 C 87 20 205/99 H 96 Laboratory Results 05/03/20 05/03/20 05/03/20 Range/Units 15:30 12:45 12:45 WBC (4.8-10.8) K/uL RBC (4.2-5.4) M/uL Hgb (12.0-16.0) g/dL Hct (37-47) % MCV (80-100) fL MCH (25-34) pg MCHC (32-36) g/dL RDW Std Deviation (36.4-46.3) fL RDW Coeff of Isai (11.5-14.5) % Plt Count (130-400) K/uL MPV (7.4-10.4) fL Immature Gran % (Auto) % Neut % (Auto) % Lymph % (Auto) % Emanuel % (Auto) % Eos % (Auto) % Baso % (Auto) % Immature Gran # (Auto) (0.00-0.02) K/uL Neut # (Auto) (1.4-6.5) K/uL Lymph # (Auto) (1.2-3.4) K/uL Emanuel # (Auto) (0.11-0.59) K/uL Eos # (Auto) (0-0.5) K/uL Baso # (Auto) (0-0.2) K/uL PT (9.0-12.0) Seconds INR (0.9-1.1) APTT (21.0-31.0) Seconds PTT Ratio Sodium (136-145) mmol/L Potassium (3.5-5.1) mmol/L Chloride (98-107) mmol/L Carbon Dioxide (21-32) mmol/L Anion Gap (3-11) BUN (7-18) mg/dl Creatinine (0.6-1.2) mg/dl Est Cr Clr Drug Dosing ml/min Est GFR ( Amer) Est GFR (Non-Af Amer) BUN/Creatinine Ratio (10-20) Glucose (70-99) mg/dl POC Glucose 86 (70-99) mg/dl Lactate 1.4 (0.4-2.0) mmol/L Calcium (8.5-10.1) mg/dl Magnesium (1.8-2.4) mg/dl Total Bilirubin (0.2-1) mg/dl AST (15-37) U/L ALT (12-78) U/L Alkaline Phosphatase (45-117) U/L Troponin I (0-0.045) ng/ml Total Protein (6.4-8.2) gm/dl Albumin (3.4-5.0) gm/dl Globulin (2.5-4.0) gm/dl Albumin/Globulin Ratio (0.9-2) Procalcitonin (0-0.5) ng/ml Urine Color Yellow Urine Appearance Clear (Clear) Urine pH 6.0 (4.5-7.5) Ur Specific [place] 1.035 H (1.000-1.030) Urine Protein 1+ H (Negative) Urine Glucose (UA) Negative (Negative) Urine Ketones 1+ H (Negative) Urine Blood 2+ H (Negative) Urine Nitrite Negative (Negative) Urine Bilirubin Negative (Negative) Urine Urobilinogen Negative (Negative) Ur Leukocyte Esterase Negative (Negative) Urine WBC (Auto) 1-5 (0-5) /hpf Urine RBC (Auto) 10-30 H (0-4) /hpf U Hyaline Cast (Auto) 1-5 (0-5) /lpf U Epithel Cells (Auto) 5-10 H (0-5) /lpf Urine Bacteria (Auto) Negative (Negative) 05/03/20 05/03/20 05/03/20 Range/Units 12:45 12:45 12:45 WBC 31.04 H* (4.8-10.8) K/uL RBC 4.26 (4.2-5.4) M/uL Hgb 12.7 (12.0-16.0) g/dL Hct 38.7 (37-47) % MCV 90.8 (80-100) fL MCH 29.8 (25-34) pg MCHC 32.8 (32-36) g/dL RDW Std Deviation 48.5 H (36.4-46.3) fL RDW Coeff of Isai 14.6 H (11.5-14.5) % Plt Count 326 (130-400) K/uL MPV 9.8 (7.4-10.4) fL Immature Gran % (Auto) 4.0 % Neut % (Auto) 84.8 % Lymph % (Auto) 4.2 % Emanuel % (Auto) 6.6 % Eos % (Auto) 0.1 % Baso % (Auto) 0.3 % Immature Gran # (Auto) 1.24 H (0.00-0.02) K/uL Neut # (Auto) 26.33 H (1.4-6.5) K/uL Lymph # (Auto) 1.30 (1.2-3.4) K/uL Emanuel # (Auto) 2.05 H (0.11-0.59) K/uL Eos # (Auto) 0.02 (0-0.5) K/uL Baso # (Auto) 0.10 (0-0.2) K/uL PT 12.4 H (9.0-12.0) Seconds INR 1.2 H (0.9-1.1) APTT 31.3 H (21.0-31.0) Seconds PTT Ratio 1.1 Sodium 132 L (136-145) mmol/L Potassium 3.0 L (3.5-5.1) mmol/L Chloride 94 L (98-107) mmol/L Carbon Dioxide 29 (21-32) mmol/L Anion Gap 9.0 (3-11) BUN 32 H (7-18) mg/dl Creatinine 0.82 (0.6-1.2) mg/dl Est Cr Clr Drug Dosing 33.6 ml/min Est GFR ( Amer) 73.5 Est GFR (Non-Af Amer) 63.4 BUN/Creatinine Ratio 39.6 H (10-20) Glucose 88 (70-99) mg/dl POC Glucose (70-99) mg/dl Lactate (0.4-2.0) mmol/L Calcium 8.6 (8.5-10.1) mg/dl Magnesium 2.0 (1.8-2.4) mg/dl Total Bilirubin 0.5 (0.2-1) mg/dl AST 31 (15-37) U/L ALT 24 (12-78) U/L Alkaline Phosphatase 308 H (45-117) U/L Troponin I < 0.015 (0-0.045) ng/ml Total Protein 6.5 (6.4-8.2) gm/dl Albumin 1.8 L (3.4-5.0) gm/dl Globulin 4.7 H (2.5-4.0) gm/dl Albumin/Globulin Ratio 0.4 L (0.9-2) Procalcitonin (0-0.5) ng/ml Urine Color Urine Appearance (Clear) Urine pH (4.5-7.5) Ur Specific [place] (1.000-1.030) Urine Protein (Negative) Urine Glucose (UA) (Negative) Urine Ketones (Negative) Urine Blood (Negative) Urine Nitrite (Negative) Urine Bilirubin (Negative) Urine Urobilinogen (Negative) Ur Leukocyte Esterase (Negative) Urine WBC (Auto) (0-5) /hpf Urine RBC (Auto) (0-4) /hpf U Hyaline Cast (Auto) (0-5) /lpf U Epithel Cells (Auto) (0-5) /lpf Urine Bacteria (Auto) (Negative) 05/03/20 Range/Units 12:45 WBC (4.8-10.8) K/uL RBC (4.2-5.4) M/uL Hgb (12.0-16.0) g/dL Hct (37-47) % MCV (80-100) fL MCH (25-34) pg MCHC (32-36) g/dL RDW Std Deviation (36.4-46.3) fL RDW Coeff of Isai (11.5-14.5) % Plt Count (130-400) K/uL MPV (7.4-10.4) fL Immature Gran % (Auto) % Neut % (Auto) % Lymph % (Auto) % Emanuel % (Auto) % Eos % (Auto) % Baso % (Auto) % Immature Gran # (Auto) (0.00-0.02) K/uL Neut # (Auto) (1.4-6.5) K/uL Lymph # (Auto) (1.2-3.4) K/uL Emanuel # (Auto) (0.11-0.59) K/uL Eos # (Auto) (0-0.5) K/uL Baso # (Auto) (0-0.2) K/uL PT (9.0-12.0) Seconds INR (0.9-1.1) APTT (21.0-31.0) Seconds PTT Ratio Sodium (136-145) mmol/L Potassium (3.5-5.1) mmol/L Chloride (98-107) mmol/L Carbon Dioxide (21-32) mmol/L Anion Gap (3-11) BUN (7-18) mg/dl Creatinine (0.6-1.2) mg/dl Est Cr Clr Drug Dosing ml/min Est GFR ( Amer) Est GFR (Non-Af Amer) BUN/Creatinine Ratio (10-20) Glucose (70-99) mg/dl POC Glucose (70-99) mg/dl Lactate (0.4-2.0) mmol/L Calcium (8.5-10.1) mg/dl Magnesium (1.8-2.4) mg/dl Total Bilirubin (0.2-1) mg/dl AST (15-37) U/L ALT (12-78) U/L Alkaline Phosphatase (45-117) U/L Troponin I (0-0.045) ng/ml Total Protein (6.4-8.2) gm/dl Albumin (3.4-5.0) gm/dl Globulin (2.5-4.0) gm/dl Albumin/Globulin Ratio (0.9-2) Procalcitonin 3.18 H (0-0.5) ng/ml Urine Color Urine Appearance (Clear) Urine pH (4.5-7.5) Ur Specific [place] (1.000-1.030) Urine Protein (Negative) Urine Glucose (UA) (Negative) Urine Ketones (Negative) Urine Blood (Negative) Urine Nitrite (Negative) Urine Bilirubin (Negative) Urine Urobilinogen (Negative) Ur Leukocyte Esterase (Negative) Urine WBC (Auto) (0-5) /hpf Urine RBC (Auto) (0-4) /hpf U Hyaline Cast (Auto) (0-5) /lpf U Epithel Cells (Auto) (0-5) /lpf Urine Bacteria (Auto) (Negative) Diagnostic Findings CT SCAN OF THE ABDOMEN AND PELVIS WITH IV CONTRAST CLINICAL HISTORY: Fever. Status post cholecystectomy. Leukocytosis. COMPARISON STUDY: No priors. TECHNIQUE: Following the IV administration of 94 cc of Optiray 320, CT scan of the abdomen and pelvis is performed from the lung bases to the proximal femora. Images are reviewed in the axial, sagittal, and coronal planes. IV contrast was administered without complication. A dose lowering technique was utilized adhering to the principles of ALARA. CT DOSE: 273.77 mGycm FINDINGS: Lung bases: The heart is normal in size noting a small pericardial effusion. The coronary arteries are densely calcified. There is a small to moderate left pleural effusion with associated left basilar atelectasis. Dependent atelectasis is also seen at the right lung base. Liver: The contrast-enhanced liver is normal in size, contour, and attenuation. There is minimal intrahepatic biliary ductal dilatation. The hepatic veins and portal veins are patent. Gallbladder: The gallbladder surgically absent noting clips in the gallbladder fossa. A common bile duct stent is in place. Pneumobilia suggests patency of the stent. Spleen: Normal in size and attenuation. Pancreas: Moderately atrophic and grossly unremarkable. Adrenal glands: Unremarkable. Kidneys: The contrast enhanced kidneys demonstrate mild cortical atrophy and are without hydronephrosis. The kidneys enhance symmetrically. Numerous subcentimeter cortical hypodensities likely represent cysts but are too small for definitive characterization. No enhancing cortical mass is clearly identified. Abdominal vasculature: There is advanced atherosclerotic calcification and mild ectasia of the abdominal aorta. Bowel: Edema of the stomach and duodenum is likely on a reactive basis. There is no bowel obstruction. Moderate diverticulosis is noted in the sigmoid colon without CT evidence of acute diverticulitis. The appendix is well-visualized and normal. Peritoneum: There is trace perihepatic and perisplenic ascites, as well as trace free fluid in the pelvis. No intraperitoneal free air is identified. There are several multiloculated complex fluid collections identified in the upper and mid abdomen. The largest collection is located between the stomach and the left lobe of the liver as seen on image #115. This measures approximately 6 x 7 x 14 cm in aggregate dimension, and a loculation extends superiorly along the anterior margin of the spleen to the left hemidiaphragm. A multiloculated collection tracking along the mesentery extends from the anterior pancreatic head and inferior margin of the stomach tracking inferiorly to level of the pelvic inlet as seen on image #189. This envelopes several mesenteric vessels and measures approximately 10.5 x 7 x 4 cm. A small subhepatic loculated collection on image #141 measures approximately 3.5 x 4.5 x 2.5 cm. Lymphadenopathy: None. Pelvic viscera: The bladder is distended and there are foci of intraluminal gas. The bladder is otherwise normal as imaged. The uterus is surgically absent. No adnexal lesion is seen. Skeletal structures: The skeletal structures are osteopenic. Moderate lumbosacral spondylosis is observed. There is a mild and subacute appearing superior endplate compression fracture of L1. No lytic or blastic lesions are seen. There are healed left pubic ring fractures. IMPRESSION: 1. The gallbladder is surgically absent and the common bile duct stent is in place. Pneumobilia suggests patency of the stent. 2. There are several large and multiloculated fluid collections in the upper and mid abdomen as detailed above. Given the patient's history and leukocytosis these are highly concerning for abscesses. Bile leak would be impossible to exclude, and if there is clinical concern for bile leak a nuclear hepatobiliary scan should be considered. 3. Small to moderate left pleural effusion with associated atelectasis. 4. Gastric and duodenal edema is likely on a reactive basis. 5. There is a mild and subacute appearing compression fracture of L1. Correlate for point tenderness. 6. Foci of gas within the bladder lumen are likely related to rotation. Correlation with clinical findings and urinalysis will be required. 7. Trace abdominopelvic ascites. 8. Additional findings as above.
--- NOTE | 2020-05-03 17:52 | History & Physical Report ---
Date of Service May 03, 2020 Assessment & Plan (1) Bile leak, postoperative: This is an 89yo F with a PMH of HTN, hypothyroidism, HLD and recent ERCP with stone removal and CBD stent placement as well as subsequent cholecystectomy last week at [facility] who presents with possible post-operative bile leak. -S/p ERCP with stone removal and CBD stent placement as well as subsequent cholecystectomy last week at [facility] -Presenting from [place] with leukocytosis of 31K and mild upper abdominal pain -CT abd/pelvis with evidence of several large and multiloculated fluid collections in the upper and mid abdomen concerning for abscess vs bile leak -Both general surgery and GI services were consulted. Patient not interested in transfer for IR procedure. Dr. Brown plans to drain collections via EUS as well as cholangiogram tomorrow -Pre-operative COVID-19 screen ordered. Continue broad spectrum coverage with Zosyn. Gentle IV fluids. Pain control. Will remain NPO overnight (2) Elevated WBC count: Leukocytosis of 31k with procalcitonin of 3 in setting of possible abscess vs bile leak -Covering empirically with Zosyn. Blood cultures ordered -Repeat CBC and procalcitonin in AM (3) Pleural effusion: Moderate left sided pleural effusion on CXR and CT abd/pelvis. Routine pulm consult (4) Hypertension: BP slightly elevated in setting of pain. Optimize pain control. Continue lisinopril-hctz (5) Hypothyroidism: Continue levothyroxine DVT Ppx: SCD Code status: FULL PCP: [facility] Dispo: [facility]. Discharge planning ordered. Patient seen in collaboration with Dr. Olguin. Please see addendum. History of Present Illness Chief Complaint: abnormal labwork Primary Care Provider: Blayne Trent MD This is an 89yo F with a PMH of HTN, hypothyroidism, HLD and recent ERCP with stone removal and CBD stent placement as well as subsequent cholecystectomy last week at [facility]. She is presenting from [place] with leukocytosis of 31K. Has been experiencing mild upper abdominal pain described as gas pain but denies nausea or vomiting. Has been passing gas and had a bowel movement. Feels extremely fatigued and ROS is difficult to fully obtain. No fever, chills, lightheadedness, headache, chest pain or dysuria. Does endorse SOB with "lungs filling with fluid". CT abd/pelvis with evidence of several large and multiloculated fluid collections in the upper and mid abdomen concerning for abscess vs bile leak. Both general surgery and GI services were consulted on this patient with plans for Dr. Brown to drain collections via EUS as well as cholangiogram. Patient to remain NPO on broad spectrum antibiotics. Allergies Allergy/AdvReac Type Severity Reaction Status Date / Time hydrocodone Allergy Unknown Verified 05/03/20 12:55 Home Medications Home Medications Medication Instructions Recorded Confirmed Type acetaminophen 650 mg PO Q4H PRN MDD 3G 05/03/20 05/03/20 History bisacodyl 10 mg RI .Q3D PRN 05/03/20 05/03/20 History diphenhydramine HCl [Benadryl] 25 mg PO HS PRN 05/03/20 05/03/20 History docusate sodium 100 mg PO BID PRN 05/03/20 05/03/20 History levothyroxine 75 mcg PO QAM 05/03/20 05/03/20 History lidocaine 1 patch TOPICAL DAILY 05/03/20 05/03/20 History lisinopril-hydrochlorothiazide 1 tab PO DAILY 05/03/20 05/03/20 History omeprazole 20 mg PO QAM 05/03/20 05/03/20 History simethicone 80 mg PO Q4H PRN 05/03/20 05/03/20 History simvastatin 20 mg PO HS 05/03/20 05/03/20 History tramadol 25 mg PO Q6H PRN 05/03/20 05/03/20 History Past Med/Surg History Medical History Choledocholithiasis Cholelithiasis Hyperlipidemia Hypertension Hypothyroidism Surgical History S/P laparoscopic cholecystectomy (Acute) Status post endoscopic retrograde cholangiopancreatography Family History (Updated 05/03/20 @ 20:03 by Salma Magdaleno PA-C) Other Heart disease Stroke Social History (Updated 05/03/20 @ 20:03 by Salma Magdaleno PA-C) Preferred Language: Danish Communication Ability: Effective Technical Delivery Manager Required: No Beliefs That Will Affect Care: None Current Living Situation: Family and Personal Care Facility Current Living Situation Comment: Pt from [facility] since recent fall; usually resides with Daughter. Other Information That Helps Us Care for You: No Feels Safe at Home: Yes Safety Concerns: Feels Safe At This Time Smoking Status: Never smoker Hx Alcohol Use: No Hx Substance Use: No Review of Systems Review of Systems: At least ten systems reviewed and negative except as noted in the HPI. Physical Exam Physical Exam: Please See Dr. Olguin's addendum for physical exam details. Results & Data Results & Data ([facility]) Vital Signs (Past 12 Hours) Vital Signs Temp Pulse Pulse Resp BP BP Pulse Ox 05/03/20 17:36 85 18 186/84 H 95 05/03/20 17:02 90 18 193/87 H 96 05/03/20 16:00 86 18 186/84 H 95 05/03/20 15:21 84 18 179/87 H 93 05/03/20 12:54 36.5 C 87 20 205/99 H 96 Laboratory Results Short CBC 05/03/20 Range/Units 12:45 WBC 31.04 H* (4.8-10.8) K/uL Hgb 12.7 (12.0-16.0) g/dL Hct 38.7 (37-47) % Plt Count 326 (130-400) K/uL BMP 05/03/20 12:45 Sodium 132 L Potassium 3.0 L Chloride 94 L Carbon Dioxide 29 BUN 32 H Creatinine 0.82 Glucose 88 Calcium 8.6 Cardiac Enzymes 05/03/20 Range/Units 12:45 Troponin I < 0.015 (0-0.045) ng/ml Liver Function 05/03/20 Range/Units 12:45 Total Bilirubin 0.5 (0.2-1) mg/dl AST 31 (15-37) U/L ALT 24 (12-78) U/L Alkaline Phosphatase 308 H (45-117) U/L Albumin 1.8 L (3.4-5.0) gm/dl Urine 05/03/20 Range/Units 15:30 Urine Color Yellow Urine Appearance Clear (Clear) Urine pH 6.0 (4.5-7.5) Ur Specific [place] 1.035 H (1.000-1.030) Urine Protein 1+ H (Negative) Urine Glucose (UA) Negative (Negative) Diagnostic Findings CXR: IMPRESSION: Pleural effusion left base. CT Abd/pelvis: IMPRESSION: 1. The gallbladder is surgically absent and the common bile duct stent is in place. Pneumobilia suggests patency of the stent. 2. There are several large and multiloculated fluid collections in the upper and mid abdomen as detailed above. Given the patient's history and leukocytosis these are highly concerning for abscesses. Bile leak would be impossible to exclude, and if there is clinical concern for bile leak a nuclear hepatobiliary scan should be considered. 3. Small to moderate left pleural effusion with associated atelectasis. 4. Gastric and duodenal edema is likely on a reactive basis. 5. There is a mild and subacute appearing compression fracture of L1. Correlate for point tenderness. 6. Foci of gas within the bladder lumen are likely related to rotation. Correlation with clinical findings and urinalysis will be required. 7. Trace abdominopelvic ascites. 8. Additional findings as above. Supervising Physician Co-Signing Physician Notes Patient is an 89-year-old female with history of hypertension, dyslipidemia, hypothyroidism and history of recent cholecystectomy, ERCP with CBD stent and stone removal presents with history of worsening abdominal pain, bloating associated with tiredness. CT abdomen is suggestive of pneumobilia, possible biliary leak, abscess. Also noted trace ascites. CBD stent seem to be patent. Patient was evaluated by GI and surgery while in ED. Patient is planned for EUS/ERCP for evaluation of biliary leak and overall drainage of fluid collection. COVID screen will be obtained for the procedure. On exam patient is thin, frail, mild distress secondary to pain, normocephalic atraumatic, lungs--decreased breath sounds predominantly on left, S1-S2, +murmur, no pedal edema, abdomen is soft, nontender, bowel sounds are present, grossly no focal neurological deficits. Patient is admitted for management of acute abdomen: DD biliary leak/abscess. Also noted left pleural effusion. We will keep her n.p.o. for now for procedure. Appreciate GI, surgery input. We will cover her with broad-spectrum IV Zosyn for possible infection. Pain control, gentle IV fluids. Lactate within normal limits. Will consult pulmonology for evaluation of left pleural effusion for possible thoracentesis. Also noted L1 compression fracture which patient admits secondary to fall 2 weeks ago but currently denies any back pain. I personally reviewed the record. Patient is interviewed and examined at bedside. Patient's care is coordinated with Salma Magdaleno PA-C. Please refer to the documentation above for details of patient's presentation and for discussion of other issues. (1) Elevated WBC count Leukocytosis type: other Qualified Code(s): D72.828 - Other elevated white blood cell count
--- NOTE | 2020-05-03 19:22 | Electrocardiogram Report ---
Test Reason : Blood Pressure : / mmHG Vent. Rate : 092 BPM Atrial Rate : 092 BPM P-R Int : 150 ms QRS Dur : 086 ms QT Int : 346 ms P-R-T Axes : 046 021 065 degrees QTc Int : 427 ms Normal sinus rhythm No previous ECGs available Confirmed by Johnny Meier ([id number]) on 05/03/2020 7:22:11 PM Referred By: Confirmed By:Rafa Meier
[2020-05-03] MEDS ORDERED: ACETAMINOPHEN 1,000 MG/100 ML VIAL IV STA (19:38)
[2020-05-03] MEDS ORDERED: ACETAMINOPHEN 65 ML IV PRN (19:59)
--- NOTE | 2020-05-03 20:01 | Post Operative Brief Note ---
Immediate Post Op Note v1 Date of Surgery May 03, 2020 Pre & Post Diagnosis Operation Date: 05/04/20 07:30 <No data on this case meets the specified criteria> I identified the patient and participated in the time-out.: Yes Procedure Operation Date: 05/04/20 07:30 <No data on this case meets the specified criteria> Surgeon Froilan Bryant MD Butter Wrapper Nora llanes PA-C Estimated Blood Loss 75 Findings Consistent with Post-Op Diagnosis
[2020-05-03] MEDS ORDERED: SODIUM CHLORIDE 0.9% 1000ML 1,000 ML IV SCH (20:34)
[2020-05-03] MEDS ORDERED: ACETAMINOPHEN 325 MG TAB PO PRN (20:34)
[2020-05-03] MEDS ORDERED: SIMETHICONE 80 MG CHEW PO PRN (20:34)
[2020-05-03] MEDS ORDERED: PIPERACILL/TAZOBAC CONSULT ACTIVE PRN (21:04)
[2020-05-03] MEDS: PIPERACILLIN/TAZOBACTAM 3.375 GM in DEXTROSE 5% 100 ML IV SCH (21:20)
[2020-05-03] MEDS ORDERED: HYDROmorphone INJ 0.5 MG/0.5 ML SYR IV PRN (21:31)
[2020-05-04] MEDS: NSS + 20MEQ KCL 20 MEQ/1,000 ML BAG IV SCH ×2 (00:35→13:18)
[2020-05-04] MEDS: POTASSIUM CHLORIDE / WTR 10 MEQ/100 ML PLCT IV SCH ×3 (01:40→04:33)
[2020-05-04] MEDS: HydrALAZINE HCL 20 MG/ML VIAL IV PRN (05:16)
[2020-05-04] MEDS: PIPERACILLIN/TAZOBACTAM 3.375 GM in DEXTROSE 5% 100 ML IV SCH ×3 (06:28→21:12)
[2020-05-04] MEDS: LEVOTHYROXINE SODIUM 75 MCG TABLET PO SCH ×2 (06:29→06:31)
[2020-05-04] MEDS ORDERED: LIDOCAINE HCL 2% 2 ML VIAL/AMP(20MG/ML) INFIL ONE (07:09)
[2020-05-04] MEDS ORDERED: ONDANSETRON INJ 2 MG/ML 2 ML VIAL ONE (07:09)
[2020-05-04] MEDS ORDERED: PROPOFOL IV EMULSION 10 MG/ML 20 ML VIAL IV ONE (07:09)
[2020-05-04] MEDS ORDERED: fentaNYL citrate 100 MCG/2 ML VIAL ONE (07:09)
--- NOTE | 2020-05-04 07:15 | History & Physical Bridge Note ---
Date of Service May 04, 2020 History & Physical Bridge Note I have examined the patient, reviewed the History & Physical and in the interval since the performance of the History & Physical I have noted the following changes of clinical significance: no changes noted ERCP and EUS with fluid collection drainage
[2020-05-04 07:28] LABS: Albumin Level 1.5 gm/dl (3.4-5.0); BUN Creatinine Ratio 39.8 (10-20); Calcium 7.6 mg/dl (8.5-10.1); Creatinine Clr Calc Pharmacy 44.4 ml/min; Est GFR (Non-African American) 76.8; Potassium 3.8 mmol/L (3.5-5.1)
[2020-05-04 07:29] LABS: Albumin Globulin Ratio 0.3 (0.9-2); Bilirubin,Total 0.7 mg/dl (0.2-1); Globulin 4.5 gm/dl (2.5-4.0)
[2020-05-04] MEDS ORDERED: HYDROmorphone INJ 2 MG/ML SYR/VIAL IV PRN (07:33)
[2020-05-04] MEDS ORDERED: ONDANSETRON INJ 2 MG/ML 2 ML VIAL IV PRN (07:33)
[2020-05-04] MEDS ORDERED: ATROPINE SULFATE 0.1 MG/ML 10ML SYR IV PRN (07:33)
[2020-05-04] MEDS ORDERED: ePHEDrine sulfate 50 MG/ML AMP IV PRN (07:33)
[2020-05-04] MEDS ORDERED: fentaNYL citrate 100 MCG/2 ML VIAL IV PRN (07:33)
--- NOTE | 2020-05-04 07:33 | Anesthesiology Consultation ---
Date of Service May 04, 2020 Assessment & Plan ASA ASA3 Proposed Anesthesia Anesthesia Type: General Risk / Benefits Reviewed With: PT / POA / Parent / Guardian, Accepts Plan and Informed Consent Obtained History Surgery Operation Date: 05/04/20 07:30 Proposed Procedures p Endoscopic Retrograde Cholangiopancreatogram - Inna Brown MD s Endoscopic Ultrasonography Upper - Inna Brown MD Height/Weight Height: 5 ft 6 in Weight: 51.6 kg Allergies Allergy/AdvReac Type Severity Reaction Status Date / Time hydrocodone Allergy Unknown Verified 05/03/20 12:55 Medications Home Medications Medication Instructions Recorded Confirmed Last Taken acetaminophen 650 mg PO Q4H PRN MDD 3G 05/03/20 05/03/20 Unknown bisacodyl 10 mg NM .Q3D PRN 05/03/20 05/03/20 Unknown diphenhydramine HCl [Benadryl] 25 mg PO HS PRN 05/03/20 05/03/20 Unknown docusate sodium 100 mg PO BID PRN 05/03/20 05/03/20 Unknown levothyroxine 75 mcg PO QAM 05/03/20 05/03/20 Unknown lidocaine 1 patch TOPICAL DAILY 05/03/20 05/03/20 Unknown lisinopril-hydrochlorothiazide 1 tab PO DAILY 05/03/20 05/03/20 Unknown omeprazole 20 mg PO QAM 05/03/20 05/03/20 Unknown simethicone 80 mg PO Q4H PRN 05/03/20 05/03/20 Unknown simvastatin 20 mg PO HS 05/03/20 05/03/20 Unknown tramadol 25 mg PO Q6H PRN 05/03/20 05/03/20 Unknown Active Medications Generic Name Dose Route Start Last Admin Trade Name Freq PRN Reason Stop Dose Admin Hydralazine HCl 5 mg 05/03/20 21:31 05/04/20 05:16 Hydralazine Hcl IV 06/02/20 21:44 5 mg Q6H PRN Administration Hypertension Acetaminophen 65 mls @ 260 mls/hr 05/03/20 19:59 05/04/20 01:46 Ofirmev IV 05/06/20 19:58 Infused Q8H PRN Infusion Pain Piperacillin Sod/Tazobactam 115 mls @ 28.75 mls/hr 05/03/20 20:15 05/04/20 06:28 Sod 3.375 gm/ Dextrose IV 05/13/20 20:14 28.8 mls/hr Q8@0600,1400,2200 CESIA Administration Protocol Potassium Chloride/Sodium Chloride 20 meq in 1,000 mls @ 75 mls/hr 05/03/20 22:45 05/04/20 00:35 Normal Saline W/20 Meq Kcl IV 06/02/20 22:44 75 mls/hr .[id number] CESIA Administration Levothyroxine Sodium 75 mcg 05/04/20 06:30 05/04/20 06:31 Synthroid PO 06/03/20 06:29 Not Given DAILYBB CESIA NPO Date Last Intake of Fluids: 05/04/20 Time Last Intake of Fluids: 00:00 Past Medical History Medical History Choledocholithiasis Cholelithiasis Hyperlipidemia Hypertension Hypothyroidism Exercise / Class Metabolic Activity II 4-5 Yardwork/Stairs/Walk up hill Past Family History Family History Other Heart disease Stroke Past Surgical History Surgical History S/P laparoscopic cholecystectomy (Acute) Status post endoscopic retrograde cholangiopancreatography Past Anesthesia History No Hx of Anesthesia Complications and No Family Hx of Anesthesia Complications History of PONV No Hx of PONV and No Hx of Motion Sickness Social History Smoking Status: Never smoker Hx Alcohol Use: No Hx Substance Use: No Review of Systems pt refusing to answer questions 2/2 pain denies BESS Physical Exam Vital Signs Last Vital Signs Temp 36.7 C 05/04/20 02:37 Pulse 82 05/04/20 02:37 Resp 18 05/04/20 02:37 BP 181/71 H 05/04/20 02:37 Pulse Ox 95 05/04/20 02:37 Constitutional + acute distress ENMT Mouth: + poor dentition (hard to assess pt uncooperative); no TMJ abnormality and no dentition abnormality Thyromental Distance: > or= 3.5 Finger Breadths Mallampati Class: IV Neck neck extension not limited Respiratory normal respiratory effort; no respiratory distress Auscultation: lungs clear to auscultation bilaterally Cardiovascular Rate/Rhythm: regular rate and regular rhythm Neurologic moves all extremities Psychiatric Orientation: alert and oriented x 3 Testing Laboratory Results 05/04/20 06:09 PT 12.4 Seconds (9.0-12.0) H 05/03/20 12:45 INR 1.2 (0.9-1.1) H 05/03/20 12:45 APTT 31.3 Seconds (21.0-31.0) H 05/03/20 12:45 Urine Color Yellow 05/03/20 15:30 Urine Appearance Clear (Clear) 05/03/20 15:30 Urine pH 6.0 (4.5-7.5) 05/03/20 15:30 Ur Specific [place] 1.035 (1.000-1.030) H 05/03/20 15:30 Urine Protein 1+ (Negative) H 05/03/20 15:30 Urine Glucose (UA) Negative (Negative) 05/03/20 15:30 Urine Ketones 1+ (Negative) H 05/03/20 15:30 Urine Nitrite Negative (Negative) 05/03/20 15:30 Ur Leukocyte Esterase Negative (Negative) 05/03/20 15:30 Urine WBC (Auto) 1-5 /hpf (0-5) 05/03/20 15:30 Urine RBC (Auto) 10-30 /hpf (0-4) H 05/03/20 15:30 U Hyaline Cast (Auto) 1-5 /lpf (0-5) 05/03/20 15:30 U Epithel Cells (Auto) 5-10 /lpf (0-5) H 05/03/20 15:30 Urine Bacteria (Auto) Negative (Negative) 05/03/20 15:30
[2020-05-04] MEDS ORDERED: SUCCINYLCHOLINE CHLORIDE 20 MG/ML 10 ML VIAL IV ONE (08:08)
[2020-05-04] MEDS ORDERED: LARYING-O-JET KIT (LTA) ONE (08:08)
--- NOTE | 2020-05-04 09:20 | Operative Report ---
Post Operative Report Pre & Post Diagnosis Operation Date: 05/04/20 07:30 Pre-Op Diagnosis: Intra-Abdominal abscess versus Bile Leak Post-Op Diagnosis: Intra-Abdominal abscess versus Bile Leak I identified the patient and participated in the time-out.: Yes Procedure Operation Date: 05/04/20 07:30 Actual Procedures p Endoscopic Retrograde Cholangiopancreatogram(Not Applicable) - Inna Brown MD s Endoscopic Ultrasonography Upper(Not Applicable) - Inna Brown MD Surgeon Inna Brown MD Research Computing Specialist Nora llanes PA-C Estimated Blood Loss 75 Findings See Below (No bile leak on ERCP. EUS showed large intraperitoneal/ perigastric abscess, sucessfull EUS guided drainage with 2 double pigtail stent) Specimens Fluid aspiration for C/S Description of Procedure ERCP/EUS I attest to the content of the Intraoperative Record and any orders documented therein. Any exceptions are noted below.
--- NOTE | 2020-05-04 09:39 | GI REPORT ---
Patient Name: Ashley Maria Procedure Date: 05/04/2020 7:44 AM Date of : 1930 Admit Type: Inpatient Age: 89 Gender: Female Attending MD: Inna Brown MD Procedure: ERCP Providers: Inna Brown MD Referring MD: Blayne Trent, Froilan Bryant MD, PB CALERO Indications: Abnormal abdominal CT, Suspected bile leak Medicines: General Anesthesia Complications: No immediate complications. Estimated Blood Loss: Estimated blood loss: none. Procedure: Pre-Anesthesia Assessment: - Prior to the procedure, a History and Physical was performed, and patient medications, allergies and sensitivities were reviewed. The patient's tolerance of previous anesthesia was reviewed. - The risks and benefits of the procedure and the sedation options and risks were discussed with the patient. All questions were answered and informed consent was obtained. - Patient identification and proposed procedure were verified prior to the procedure by the physician and the nurse. The procedure was verified in the procedure room. - Pre-procedure physical examination revealed no contraindications to sedation. After obtaining informed consent, the scope was passed under direct vision. Throughout the procedure, the patient's blood pressure, pulse, and oxygen saturations were monitored continuously. The Scope was introduced through the mouth, and advanced to the duodenum and used to inject contrast into the bile duct. The ERCP was accomplished without difficulty. The patient tolerated the procedure well. Findings: A director of sales and marketing film of the abdomen was obtained. Surgical clips, consistent with a previous cholecystectomy, were seen in the area of the right upper quadrant of the abdomen. A biliary stent was visible on the director of sales and marketing film. The esophagus was successfully intubated under direct vision. The scope was advanced to a normal major papilla in the descending duodenum without detailed examination of the pharynx, larynx and associated structures, and upper GI tract. The upper GI tract was grossly normal. A biliary sphincterotomy had been performed. The sphincterotomy appeared open. One covered metal biliary stent originating in the common bile duct was emerging from the major papilla. The stent was visibly patent. A 0.035 inch straight standard wire was passed into the biliary tree. The 8.5 mm balloon was passed over the guidewire and the bile duct was then deeply cannulated. Contrast was injected. I personally interpreted the bile duct images. Ductal flow of contrast was adequate. Image quality was adequate. Contrast extended to the main bile duct. Opacification of the cystic duct remnant and entire biliary tree was successful. The maximum diameter of the ducts was 9 mm. There was no extravasation of contrast. The cystic duct remnant was then cannulated with guidewire and catheter and no bile leak seen. The biliary tree was swept with an 11.5 mm balloon starting at the bifurcation. Sludge was swept from the duct. PD not cannulated. Impression: - No evidence of Bile leak on occlusion cholangiogram. Recommendation: - Perform an upper endoscopic ultrasound (UEUS) today. Inna Brown MD 05/04/2020 9:38:43 AM This report has been signed electronically. Note Initiated On: 05/04/2020 7:44 AM Number of Addenda: 0 I attest to the content of the Intraoperative Record and orders documented therein, exceptions below {[id number]}
--- NOTE | 2020-05-04 09:46 | Fluoroscopy Report ---
FL ERCP biliary ductal CLINICAL HISTORY: ERCP COMPARISON STUDY: CT 05/03/2020 FLUOROSCOPY TIME: 2 minutes 20 seconds NUMBER OF FLUOROSCOPIC IMAGES: 16 FINDINGS: Image intensifier support for ERCP exam. There is a distal common bile duct stent. Appears to be balloon sweeping of the cystic duct remnant. Later images demonstrate placement of 2 double pigtail drainage catheters overlying the stomach. IMPRESSION: ERCP as described ACT 112: Negative or not required by law. The above report was generated using voice recognition software. It may contain grammatical, syntax or spelling errors. Electronically signed by: Froilan Stinson M.D. 05/04/2020 9:45 AM
--- NOTE | 2020-05-04 10:06 | GI REPORT ---
Patient Name: Ashley Maria Procedure Date: 05/04/2020 8:06 AM Date of : 1930 Admit Type: Inpatient Age: 89 Gender: Female Attending MD: Inna Brown MD Procedure: Upper EUS Providers: Inna Brown MD Referring MD: Blayne Trent, JASMINA GARRETT, Froilan Bryant MD, PB Delaney Indications: Abnormal abdominal/pelvic CT scan, For cystgastrostomy/ EUS guided abdominal fluid collection drainage. Medicines: General Anesthesia Complications: No immediate complications. Estimated Blood Loss: Estimated blood loss: none. Procedure: Pre-Anesthesia Assessment: - Prior to the procedure, a History and Physical was performed, and patient medications, allergies and sensitivities were reviewed. The patient's tolerance of previous anesthesia was reviewed. - The risks and benefits of the procedure and the sedation options and risks were discussed with the patient. All questions were answered and informed consent was obtained. - Patient identification and proposed procedure were verified prior to the procedure by the physician and the nurse. The procedure was verified in the procedure room. - Pre-procedure physical examination revealed no contraindications to sedation. After obtaining informed consent, the endoscope was passed under direct vision. Throughout the procedure, the patient's blood pressure, pulse, and oxygen saturations were monitored continuously. The Endosonoscope was introduced through the mouth, and advanced to the second part of duodenum. The upper EUS was accomplished without difficulty. The patient tolerated the procedure well. Findings: ENDOSONOGRAPHIC FINDING: : A large collection of fluid, visualized as a round anechoic structure with thick wall and internal debris that is adherent to the posterior gastric wall was found and consistent with an abscess. The decision was made to create a cystogastrostomy. Once an appropriate position in the stomach was identified, the common wall between the stomach and the cyst was interrogated utilizing color Doppler imaging to identify interposed vessels. The stomach wall and the cyst were punctured under endosonographic guidance with the 22 gauge needle. Pus was aspirated and sent for culture and sensitivity. The cyst was injected with full strength ionic contrast and a cystogram was obtained under fluoroscopy. An 0.018 inch straight wire was inserted into the cyst under fluoroscopic guidance and allowed to coil twice. The needle knife was passed over the wire to creat a small incision into the gastric wall. The guidewire was then exchanged to a 0.035 inch and coiled twice in the cavity. The opening was dilated with a 4 mm balloon dilator. A 4 cm 10 Fr Renny-Cook double pigtail stent and another 7 cm 7 Fr double pigtail stent were placed into the cyst through the cystogastrostomy. The stents were successfully placed. There was a slightly long mucosal disruption at the cystgastrostomy area hence one hemostatic clip was successfully placed to close it. There was no bleeding at the end of the procedure. I personally interpretted the fluoroscopy images. Impression: - Large intraabdominal abscess post recent cholecystectomy, treated with EUS guided cystogastrostomy and sucessfull placement of two double pigtail stents. Recommendation: - Return patient to [facility] for ongoing care. - Continue IV ABx. - Follow up culture and sensitivity. - Needs to complete a total of 3 weeks course of Antibiotics. - Perform CT scan (computed tomography) of the abdomen with contrast in 3 weeks to assess resolution of the abscess and plan for repeat endoscopy for stents removal. - Please call me personally if any issues or concerns or change in clinical status. Inna Brown MD 05/04/2020 10:05:28 AM This report has been signed electronically. Note Initiated On: 05/04/2020 8:06 AM Number of Addenda: 0 I attest to the content of the Intraoperative Record and orders documented therein, exceptions below {[id number]}
--- NOTE | 2020-05-04 10:06 | Anesthesiology Progress Note ---
Date of Service May 04, 2020 Anesthesia Post Procedure Vital Signs Vital Signs: Temp Pulse Pulse Pulse Resp BP BP 05/04/20 10:00 84 21 05/04/20 09:50 89 19 05/04/20 09:40 93 H 18 05/04/20 09:33 37.3 C 113 H 17 05/04/20 08:34 81 05/04/20 07:32 36.8 C 78 18 150/63 H 05/04/20 02:37 36.7 C 82 18 05/03/20 23:59 95 H 05/03/20 23:43 36.6 C 82 18 05/03/20 21:46 83 05/03/20 21:23 05/03/20 20:39 36.6 C 89 18 05/03/20 20:34 83 05/03/20 19:49 36.9 C 93 H 20 05/03/20 18:30 84 18 05/03/20 17:36 85 18 05/03/20 17:02 90 18 05/03/20 16:00 86 18 05/03/20 15:21 84 18 05/03/20 12:54 36.5 C 87 20 205/99 H BP Pulse Ox 05/04/20 10:00 160/74 H 100 05/04/20 09:50 167/74 H 98 05/04/20 09:40 158/83 H 98 05/04/20 09:33 163/83 H 94 05/04/20 08:34 05/04/20 07:32 94 05/04/20 02:37 181/71 H 95 05/03/20 23:59 05/03/20 23:43 169/75 H 95 05/03/20 21:46 05/03/20 21:23 174/72 H 05/03/20 20:39 180/76 H 95 05/03/20 20:34 05/03/20 19:49 188/78 H 95 05/03/20 18:30 186/95 H 93 05/03/20 17:36 186/84 H 95 05/03/20 17:02 193/87 H 96 05/03/20 16:00 186/84 H 95 05/03/20 15:21 179/87 H 93 05/03/20 12:54 96 Pain Intensity Abdomen: Pain Intensity: 7 Transfer of Care Handoff Completed per policy Notes Mental Status: alert / awake / arousable and participated in evaluation Patient Amnestic to Procedure: Yes Nausea / Vomiting: adequately controlled Pain: adequately controlled Airway Patency, RR, SpO2: stable & adequate BP & HR: stable & adequate Hydration State: stable & adequate Anesthetic Complications: no major complications apparent and Pt Satisfied with anesthetic care
--- NOTE | 2020-05-04 11:10 | Pulmonology Progress Note ---
Date of Service May 04, 2020 Assessment & Plan Admission and Anticipated Discharge Date Admission Date: May 03, 2020 Results & Data Results & Data ([facility]) Vital Signs (Past 12 Hours) Vital Signs Temp Pulse Pulse Pulse Resp BP BP 05/04/20 11:09 36.5 C 97 H 20 145/68 H 05/04/20 10:30 36.4 C L 100 H 20 143/71 H 05/04/20 10:10 36.6 C 85 20 163/77 H 05/04/20 10:00 84 21 160/74 H 05/04/20 09:50 89 19 167/74 H 05/04/20 09:40 93 H 18 158/83 H 05/04/20 09:33 37.3 C 113 H 17 163/83 H 05/04/20 08:34 81 05/04/20 07:32 36.8 C 78 18 150/63 H 05/04/20 02:37 36.7 C 82 18 181/71 H 05/03/20 23:59 95 H 05/03/20 23:43 36.6 C 82 18 169/75 H Pulse Ox 05/04/20 11:09 93 05/04/20 10:30 93 05/04/20 10:10 100 05/04/20 10:00 100 05/04/20 09:50 98 05/04/20 09:40 98 05/04/20 09:33 94 05/04/20 08:34 05/04/20 07:32 94 05/04/20 02:37 95 05/03/20 23:59 05/03/20 23:43 95 PG Care Time/CCT Total # of Minutes Spent Total Time Spent with Patient: Total time spent is greater than 50% in coordination of care (as documented) at patient's floor/unit and/or counseling patient: Coding
[2020-05-04 11:11] LABS: Hematocrit (blood only) 35.4 % (37-47); Hemoglobin 11.5 g/dL (12.0-16.0); Mean Corpuscular Hemoglobin 29.3 pg (25-34); Mean Corpuscular Volume 90.1 fL (80-100); Mean Platelet Volume 9.7 fL (7.4-10.4); Platelet Count 309 K/uL (130-400); RDW Coefficient of Variation 14.4 % (11.5-14.5); RDW Standard Deviation 47.9 fL (36.4-46.3); Red Blood Count 3.93 M/uL (4.2-5.4); White Blood Count 28.78 K/uL (4.8-10.8)
[2020-05-04] MEDS: PANTOprazole 40 MG TAB PO SCH (11:11)
[2020-05-04] MEDS: LISINOPRIL/HCTZ 20/12.5MG 1 TAB TAB PO SCH (11:11)
[2020-05-04 11:17] LABS: Mean Corpuscular Hgb Conc 32.5 g/dL (32-36)
[2020-05-04 11:41] LABS: Basophils # (auto) 0.05 K/uL (0-0.2); Basophils % (auto) 0.2 %; Dohle Bodies 1+; Eosinophils # (auto) 0.03 K/uL (0-0.5); Eosinophils % (auto) 0.1 %; Immature Granulocytes # (auto) 0.78 K/uL (0.00-0.02); Immature Granulocytes % (auto) 2.7 %; Lymphocytes # (auto) 0.79 K/uL (1.2-3.4); Lymphocytes % (auto) 2.7 %; Monocytes # (auto) 1.14 K/uL (0.11-0.59); Neutrophils # (auto) 25.99 K/uL (1.4-6.5); Neutrophils % (auto) 90.3 %; Toxic Granulation 2+
--- NOTE | 2020-05-04 17:31 | Hospitalist Progress Note ---
Date of Service May 04, 2020 Assessment & Plan (1) Abdominal pain: 89yo F with a PMH of HTN, hypothyroidism, HLD and recent ERCP with stone removal and CBD stent placement as well as subsequent cholecystectomy last week at [facility] who presents with abdominal discomfort CT abdomen on admission showed several large and multiloculated fluid collections in the upper and mid abdomen that highly concerning for abscesses or possible bile leak WBC elevated at 31K and Procalcitonin elevated Gastro was consulted ERCP done by Dr. Brown showed no evidence of Bile leak on occlusion cholangiogram S/P upper endoscopic ultrasound guided drainage of the large intraabdominal abscess performed by Dr. Brown GI recommended 3 weeks course of abx Will need CT abdomen with contrast in 3 weeks to assess resolution of the abscess Plan to repeat ERCP for stent removal. Will continue IV abx with Zosyn Continue monitor closely (2) Elevated WBC count: Leukocytosis of 31k with elevated procalcitonin Due to intraabdominal abscess Continue empirically abx with Zosyn. WBC slightly dropped to 28K Blood cx and intraabdominal pus sent for cx pending Continue monitor CBC (3) Pleural effusion: Moderate left sided pleural effusion on CXR and CT abd/pelvis. Pulmonology on board Plan for thoracentesis Saturated well on RA (4) Hypertension: BP elevated Continue Lisinopril/HCTZ Continue monitor BP (5) Hypothyroidism: Continue levothyroxine DVT Ppx: SCD Code status: FULL PCP: Moon Dispo: Continue monitor closely Admission and Anticipated Discharge Date Admission Date: May 03, 2020 Subjective Pt was seen and examined Lying in bed with no distress Pt said that she feels tired She said that abdominal pain is control Denies any chest pain, palpitation, dizziness and SOB Physical Exam Physical Exam: General- No acute distress Head- atraumatic Eyes- PERRL, EOMI, ENT- oropharynx clear Neck- supple, no JVD Lungs- clear to auscultation Heart- regular rhythm; + murmur Abdomen- normal bowel sounds, +abdominal tender with palpation Extremities- no calf tenderness Neuro- alert, oriented x 3; PERRL, EOMI; no facial palsy; no dysarthria Skin- warm & dry Results & Data Results & Data ([facility]) Vital Signs (Past 12 Hours) Vital Signs Temp Pulse Pulse Pulse Resp BP BP 05/04/20 16:17 105 H 05/04/20 16:00 37.2 C 93 H 18 151/68 H 05/04/20 11:09 36.5 C 97 H 20 145/68 H 05/04/20 10:30 36.4 C L 100 H 20 143/71 H 05/04/20 10:10 36.6 C 85 20 163/77 H 05/04/20 10:00 84 21 160/74 H 05/04/20 09:50 89 19 167/74 H 05/04/20 09:40 93 H 18 158/83 H 05/04/20 09:33 37.3 C 113 H 17 163/83 H 05/04/20 08:34 81 05/04/20 07:32 36.8 C 78 18 150/63 H Pulse Ox 05/04/20 16:17 05/04/20 16:00 95 05/04/20 11:09 93 05/04/20 10:30 93 05/04/20 10:10 100 05/04/20 10:00 100 05/04/20 09:50 98 05/04/20 09:40 98 05/04/20 09:33 94 05/04/20 08:34 05/04/20 07:32 94 (1) Elevated WBC count Leukocytosis type: other Qualified Code(s): D72.828 - Other elevated white blood cell count
[2020-05-04] MEDS: SIMVASTATIN 20 MG TAB PO SCH (20:16)
--- NOTE | 2020-05-04 23:05 | Pulmonary Consultation ---
Date of Consultation May 04, 2020 Assessment & Plan (1) Pleural effusion: --Left-sided pleural effusion In a patient who had intra-abdominal abscess which was drained on 05/03/2020 This could be a reactive pleural effusion secondary to the intra-abdominal abscess The abscess was after CBD stent placement it could be biliary leak abscess. Biliary leak abscesses have been associated with pleural effusion which if it is bilious needs to be drained as bile is a very good medium for infection. As the patient had intra-abdominal abscess drained would plan to do thoracentesis tomorrow. Patient agrees with the plan. Risk and benefits of the procedure were explained in detail and and in depth. History of Present Illness Attending Physician: Maria Elena Magana MD History of Present Illness 89-year-old female past medical history of hypertension, hyp othyroidism, dyslipidemia recently had ERCP with stone removal and common bile duct stent placement with cholecystectomy presents from the [place] with leukocytosis of 30 1K. She was also experiencing mild upper abdominal pain. She does complain of some shortness of breath. Along with generalized fatigue. Pulmonary was consulted for left-sided pleural effusion. At the time of examination patient had undergone drainage of her intra-abdominal abscess. She was in mild distress secondary abdominal pain. Patient denies any chest pain, no shortness of breath, no dizziness, no headache, no nausea, no vomiting. She was saturating 98% on room air at the time of examination. Social history: Non-smoker, no illicit drug use, no alcohol use. Patient is a missionary. Allergies Allergy/AdvReac Type Severity Reaction Status Date / Time hydrocodone Allergy Unknown Verified 05/03/20 12:55 Home Medications Home Medications Medication Instructions Recorded Confirmed Type acetaminophen 650 mg PO Q4H PRN MDD 3G 05/03/20 05/03/20 History bisacodyl 10 mg DE .Q3D PRN 05/03/20 05/03/20 History diphenhydramine HCl [Benadryl] 25 mg PO HS PRN 05/03/20 05/03/20 History docusate sodium 100 mg PO BID PRN 05/03/20 05/03/20 History levothyroxine 75 mcg PO QAM 05/03/20 05/03/20 History lidocaine 1 patch TOPICAL DAILY 05/03/20 05/03/20 History lisinopril-hydrochlorothiazide 1 tab PO DAILY 05/03/20 05/03/20 History omeprazole 20 mg PO QAM 05/03/20 05/03/20 History simethicone 80 mg PO Q4H PRN 05/03/20 05/03/20 History simvastatin 20 mg PO HS 05/03/20 05/03/20 History tramadol 25 mg PO Q6H PRN 05/03/20 05/03/20 History Patient History Medical History Choledocholithiasis Cholelithiasis Hyperlipidemia Hypertension Hypothyroidism Surgical History S/P laparoscopic cholecystectomy (Acute) Status post endoscopic retrograde cholangiopancreatography Family History Other Heart disease Stroke Social History (Updated 05/03/20 @ 20:03 by Salma Magdaleno PA-C) Preferred Language: [place] Leonean Communication Ability: Effective Sling Operator Required: No Beliefs That Will Affect Care: None Current Living Situation: Family and Personal Care Facility Current Living Situation Comment: Pt from [facility] since recent fall; usually resides with Daughter. Other Information That Helps Us Care for You: No Feels Safe at Home: Yes Safety Concerns: Feels Safe At This Time Smoking Status: Never smoker Hx Alcohol Use: No Hx Substance Use: No Review of Systems Review of Systems: All systems reviewed & are unremarkable except as noted in HPI & below Physical Exam Physical Exam: Constitutional: No acute distress, frail-appearing HEENT: EOMI, PERRLA, arcus senilis bilaterally, dry mucosa Respiratory system: Decreased air entry on the left side, no wheeze, no rhonchi, no crackles CVS: S1-S2 positive, no murmurs or gallops Abdomen: Soft, mild tenderness around the incision site, nondistended, positive bowel sounds x4 Extremities: +2 pulses bilaterally radialis/ dorsalis pedis, no cyanosis, no edema Neuro: Awake alert oriented x3 Psych: Normal mood and affect G/U: No Chaves Skin: no rashes, warm and dry Lymphatic: no cervical or axillary lymphadenopathy Results & Data Results & Data ([facility]) Vital Signs (Past 12 Hours) Vital Signs Temp Pulse Pulse Pulse Resp BP BP 05/04/20 11:09 36.5 C 97 H 20 145/68 H 05/04/20 10:30 36.4 C L 100 H 20 143/71 H 05/04/20 10:10 36.6 C 85 20 163/77 H 05/04/20 10:00 84 21 160/74 H 05/04/20 09:50 89 19 167/74 H 05/04/20 09:40 93 H 18 158/83 H 05/04/20 09:33 37.3 C 113 H 17 163/83 H 05/04/20 08:34 81 05/04/20 07:32 36.8 C 78 18 150/63 H 05/04/20 02:37 36.7 C 82 18 181/71 H 05/03/20 23:59 95 H 05/03/20 23:43 36.6 C 82 18 169/75 H Pulse Ox 05/04/20 11:09 93 05/04/20 10:30 93 05/04/20 10:10 100 05/04/20 10:00 100 05/04/20 09:50 98 05/04/20 09:40 98 05/04/20 09:33 94 05/04/20 08:34 05/04/20 07:32 94 05/04/20 02:37 95 05/03/20 23:59 05/03/20 23:43 95 05/04/20 10:55 05/04/20 06:09 PG Care Time/CCT Total # of Minutes Spent Total Time Spent with Patient: Total time spent is greater than 50% in coordination of care (as documented) at patient's floor/unit and/or counseling patient: [place] [address] Initial Inpt Care Lvl 3 Patient Type New Diagnoses Pleural effusion J90
[2020-05-05] MEDS: TRAMADOL HCL 50 MG TABLET PO PRN ×3 (01:53→22:18)
[2020-05-05] MEDS: NSS + 20MEQ KCL 20 MEQ/1,000 ML BAG IV SCH ×2 (01:53→15:00)
[2020-05-05] MEDS: PIPERACILLIN/TAZOBACTAM 3.375 GM in DEXTROSE 5% 100 ML IV SCH ×3 (05:09→20:56)
[2020-05-05] MEDS: LEVOTHYROXINE SODIUM 75 MCG TABLET PO SCH (05:10)
[2020-05-05 06:53] LABS: Basophils # (auto) 0.03 K/uL (0-0.2); Basophils % (auto) 0.1 %; Eosinophils # (auto) 0.04 K/uL (0-0.5); Eosinophils % (auto) 0.2 %; Hematocrit (blood only) 34.3 % (37-47); Hemoglobin 11.1 g/dL (12.0-16.0); Immature Granulocytes % (auto) 2.4 %; Lymphocytes # (auto) 0.78 K/uL (1.2-3.4); Lymphocytes % (auto) 3.7 %; Mean Corpuscular Hemoglobin 29.6 pg (25-34); Mean Corpuscular Hgb Conc 32.4 g/dL (32-36); Mean Corpuscular Volume 91.5 fL (80-100); Mean Platelet Volume 9.8 fL (7.4-10.4); Monocytes # (auto) 1.17 K/uL (0.11-0.59); Monocytes % (auto) 5.6 %; Neutrophils # (auto) 18.31 K/uL (1.4-6.5); Platelet Count 316 K/uL (130-400); RDW Coefficient of Variation 14.7 % (11.5-14.5); RDW Standard Deviation 49.4 fL (36.4-46.3); Red Blood Count 3.75 M/uL (4.2-5.4); White Blood Count 20.83 K/uL (4.8-10.8)
[2020-05-05 07:21] LABS: Potassium 3.5 mmol/L (3.5-5.1)
[2020-05-05 07:22] LABS: Albumin Level 1.4 gm/dl (3.4-5.0); BUN Creatinine Ratio 29.1 (10-20); Calcium 7.5 mg/dl (8.5-10.1); Creatinine Clr Calc Pharmacy 41.7 ml/min; Est GFR (African American) 79.3; Est GFR (Non-African American) 68.5; Magnesium 1.8 mg/dl (1.8-2.4)
[2020-05-05 07:24] LABS: Albumin Globulin Ratio 0.3 (0.9-2); Bilirubin,Total 0.6 mg/dl (0.2-1); Globulin 4.1 gm/dl (2.5-4.0); Total Protein 5.5 gm/dl (6.4-8.2)
[2020-05-05] MEDS: LISINOPRIL/HCTZ 20/12.5MG 1 TAB TAB PO SCH (07:50)
[2020-05-05] MEDS: PANTOprazole 40 MG TAB PO SCH (07:50)
[2020-05-05] MEDS ORDERED: GLUCAGON FOR INJ 1 MG VIAL ONE (11:43)
--- NOTE | 2020-05-05 14:46 | Hospitalist Progress Note ---
Date of Service May 05, 2020 Assessment & Plan (1) Abdominal pain: 89yo F with a PMH of HTN, hypothyroidism, HLD and recent ERCP with stone removal and CBD stent placement as well as subsequent cholecystectomy last week at [facility] who presents with abdominal discomfort CT abdomen on admission showed several large and multiloculated fluid collections in the upper and mid abdomen that highly concerning for abscesses or possible bile leak WBC elevated at 31K and Procalcitonin elevated S/P laparoscopic cholecystectomy at [facility] last week Surgery on board Gastro on board ERCP done by Dr. Brown showed no evidence of Bile leak on occlusion cholangiogram S/P upper endoscopic ultrasound guided drainage of the large intraabdominal abscess performed by Dr. Brown Case discussed with GI recommended 3 weeks course of abx Will need CT abdomen with contrast in 3 weeks to assess resolution of the abscess and Plan to repeat ERCP for stent removal outpatient Will continue IV abx with Zosyn for now, once wbc normalized, will transition to Cipro and Flagyl oral on discharge Continue clear liquid for today, then advanced diet tomorrow as tolerated per GI team WBC trending down to 20K Continue monitor closely (2) Elevated WBC count: Leukocytosis of 31k with elevated procalcitonin Due to intraabdominal abscess WBC continue to drop to 20K Blood cx no growth so far Intraabdominal pus grew gram negative bacilli and kayleen albican/duliniensis Continue empirically abx with Zosyn. Continue monitor CBC (3) Pleural effusion: Moderate left sided pleural effusion on CXR and CT abd/pelvis. Pulmonology on board Plan for thoracentesis today Saturated well on RA (4) Hypertension: BP has been fluctuated Possible attributed to pain and hospital setting Continue Lisinopril/HCTZ Continue monitor BP (5) Hypothyroidism: Continue levothyroxine DVT Ppx: SCD Code status: FULL PCP: Moon Dispo: Continue monitor closely Admission and Anticipated Discharge Date Admission Date: May 03, 2020 Subjective Pt was seen and examined Lying in bed with no distress Pt said that her pain is stable She feels a little weak She said that her breathing is stable Denies any chest pain, palpitation and SOB Physical Exam Physical Exam: General- No acute distress Head- atraumatic Eyes- PERRL, EOMI, ENT- oropharynx clear Neck- supple, no JVD Lungs- clear to auscultation Heart- regular rhythm; + murmur Abdomen- normal bowel sounds, +abdominal tenderness with palpation Extremities- no calf tenderness Neuro- alert, oriented x 3; PERRL, EOMI; no facial palsy; no dysarthria Skin- warm & dry Results & Data Results & Data ([facility]) Vital Signs (Past 12 Hours) Vital Signs Temp Pulse Pulse Resp BP Pulse Ox 05/05/20 11:19 36.5 C 77 18 161/73 H 95 05/05/20 07:23 36.4 C L 76 18 174/70 H 94 05/05/20 07:21 72 05/05/20 03:39 36.5 C 63 20 145/75 H 95 05/05/20 02:48 36.5 C 81 18 155/70 H 97 (1) Elevated WBC count Leukocytosis type: other Qualified Code(s): D72.828 - Other elevated white blood cell count
--- NOTE | 2020-05-05 15:36 | Gastroenterology Progress Note ---
Date of Service May 05, 2020 Assessment & Plan (1) Abdominal pain: (2) Bile leak, postoperative: no evidence of leak on ERCP, sludge was swept from the duct. cystgastrostomy performed, doing well. recs: supportive care 3 weeks total of abx Perform CT scan (computed tomography) of the abdomen with contrast in 3 weeks to assess resolution of the abscess and plan for repeat endoscopy for stents removal. Admission and Anticipated Discharge Date Admission Date: May 03, 2020 Subjective pt seen and examined, s/p ERCP yesterday. no significant complaints other than fatigue. afebrile. labs reviewed. Review of Systems Constitutional: no fever and no chills Respiratory: no cough, no dyspnea and no dyspnea on exertion Cardiovascular: no chest pain and no dyspnea Gastrointestinal: as per Subjective / HPI Psychiatric: no depression and no anxiety Physical Exam Constitutional: WD/WN, vitals as above Respiratory: normal respiratory effort, lungs clear to auscultation Cardiovascular: RRR, no murmur, no edema Gastrointestinal (Abdomen): normal bowel sounds, soft, nontender, no hepatosplenomegaly Musculoskeletal: no lower extremity edema Psychiatric: A+Ox3, euthymic affect Results & Data Results & Data ([facility]) Vital Signs (Past 12 Hours) Vital Signs Temp Pulse Pulse Resp BP Pulse Ox 05/05/20 11:19 36.5 C 77 18 161/73 H 95 05/05/20 07:23 36.4 C L 76 18 174/70 H 94 05/05/20 07:21 72 05/05/20 03:39 36.5 C 63 20 145/75 H 95 PG Care Time/CCT Total # of Minutes Spent Total Time Spent with Patient: Total time spent is greater than 50% in coordination of care (as documented) at patient's floor/unit and/or counseling patient: Coding Level of Care Code 73310 Subseq Hosp Care Lvl 3 Diagnoses Abdominal pain R10.9 Bile leak, postoperative K91.89; K83.8
--- NOTE | 2020-05-05 16:10 | Pulmonology Progress Note ---
Date of Service May 05, 2020 Assessment & Plan (1) Pleural effusion: --Left-sided pleural effusion Patient also had intra-abdominal abscess which was drained on 05/03/2020 This could be a reactive pleural effusion secondary to the intra-abdominal abscess The abscess was after CBD stent placement it could be biliary leak abscess. Biliary leak abscesses have been associated with pleural effusion which if it is bilious needs to be drained as bile is a very good medium for infection. Plan to do thoracentesis today. Risk and benefits of the procedure explained to the patient in depth. Patient understands and wants to go ahead with the procedure. Admission and Anticipated Discharge Date Admission Date: May 03, 2020 Subjective Patient seen and examined at bedside. No acute distress, no adverse events overnight. Abdominal pain is controlled. His take getting pain medications as needed. Denies any chest pain, no shortness of breath. No cough. Poor appetite. Review of Systems Review of Systems: All systems reviewed & are unremarkable except as noted in HPI & below Physical Exam Physical Exam: Constitutional: No acute distress, frail-appearing HEENT: EOMI, PERRLA, arcus senilis bilaterally, dry mucosa Respiratory system: Decreased air entry on the left side, no wheeze, no rhonchi, no crackles CVS: S1-S2 positive, no murmurs or gallops Abdomen: Soft, mild tenderness around the incision site, nondistended, positive bowel sounds x4 Extremities: +2 pulses bilaterally radialis/ dorsalis pedis, no cyanosis, no edema Neuro: Awake alert oriented x3 Psych: Normal mood and affect G/U: No Chaves Skin: no rashes, warm and dry Lymphatic: no cervical or axillary lymphadenopathy Results & Data Results & Data ([facility]) Vital Signs (Past 12 Hours) Vital Signs Temp Pulse Pulse Resp BP Pulse Ox 05/05/20 11:19 36.5 C 77 18 161/73 H 95 05/05/20 07:23 36.4 C L 76 18 174/70 H 94 05/05/20 07:21 72 05/05/20 06:17 05/05/20 06:17 PG Care Time/CCT Total # of Minutes Spent Total Time Spent with Patient: Total time spent is greater than 50% in coordination of care (as documented) at patient's floor/unit and/or counseling patient: Coding Level of Care Code 93232 Subseq Hosp Care Lvl 3 Diagnoses Pleural effusion J90
[2020-05-05] MEDS: HYDROmorphone INJ 0.5 MG/0.5 ML SYR IV PRN (17:14)
--- NOTE | 2020-05-05 17:59 | Procedure Note ---
Procedure Note Date of Service May 05, 2020 Procedure: Diagnostic therapeutic ultrasound-guided catheter thoracentesis Cage Loader: Dr. Michael Priest Indication: Pleural effusion Consent: Signed by patient and verified with timeout prior to procedure Anesthesia: 1% lidocaine without epinephrine local. Procedure: Consent was verified and timeout performed. Appropriate imaging studies were reviewed prior to the procedure. Patient was placed in a seated position and limited thoracic ultrasound was performed of the left chest. See separate imaging. Appropriate site above the diaphragm for thoracentesis was selected. The skin was prepped and draped in normal sterile fashion. Lidocaine was used for local analgesia. Fluid was aspirated via the finder needle. A small skin [place] was made with the scalpel and the catheter over the needle apparatus was advanced over the rib into the pleural space. Using the syringe one-way valve system, a total of 550 mL's of serous cloudy appearing fluid was removed. The catheter was removed and observed to be intact. A sterile dressing was applied. Post procedure chest x-ray was ordered. Good lung sliding was appreciated on ultrasound postprocedure. Fluid was sent for labs, culture and cytology. Blood loss: Less than 2 cc Complications: None Coding CPT Codes Pulmonary/Thoracic - Pulmonary and Thoracic: 21744 Thoracentesis w imaging ([id number]) [facility] [place] Procedure Codes (Charges) Pulmonary/Thoracic Procedure 1: Pulmonary and Thoracic: 94939 Thoracentesis w imaging
--- NOTE | 2020-05-05 18:14 | XRay Report ---
SINGLE VIEW CHEST CLINICAL HISTORY: Status post thoracentesis. FINDINGS: An AP, portable, upright chest radiograph is compared to study dated 05/03/2020. The examina tion is degraded by portable technique and patient rotation. The cardiomediastinal silhouette is un remarkable noting atherosclerotic calcification of the thoracic aorta. Chronic interstitial thickenin g similar to previous. There is a trace residual left pleural effusion with associated atelectasis. T his is decreased in size from yesterday. Atelectasis is also seen at the right lung base. No pneumoth orax is seen. The bony thorax is grossly intact. Catheters project over the left upper quadrant. Chol ecystectomy clips are noted on the right. IMPRESSION: 1. There is no pneumothorax identified post procedure. 2. A small left pleural effusion has decreased in size from yesterday. ACT 112: Negative or not required by law. Electronically signed by: Panchito Amador M.D. 05/05/2020 6:13 PM
[2020-05-05 18:29] LABS: Glucose Pleural Fluid 89 mg/dl
[2020-05-05 18:37] LABS: Amylase Pleural Fluid 140 U/L; LDH Pleural Fluid 433 U/L; Total Protein Pleural Fluid 2.5 g/dl
[2020-05-05 18:42] LABS: Appearance Pleural Fluid CLOUDY; Basophils, Fluid 0 %; Color Pleural Fluid PALE YELLOW; Eosinophils, Fluid 0 %; Lymphocytes, Fluid 4 %; Mono,Macrophage,Mesothelial 10 %; Neutrophils, Fluid 86 %; RBC Pleural Fluid (A) < 3000 /uL; Source Pleural Fluid LEFT LUNG; WBC Pleural Fluid (A) 15766 /uL
[2020-05-05 18:47] LABS: Albumin Level 1.7 gm/dl (3.4-5.0); Bilirubin,Total 0.6 mg/dl (0.2-1); Total Protein 6.5 gm/dl (6.4-8.2)
[2020-05-05] MEDS: SIMVASTATIN 20 MG TAB PO SCH (20:56)
[2020-05-06] MEDS: HYDROmorphone INJ 0.5 MG/0.5 ML SYR IV PRN ×2 (01:20→13:19)
[2020-05-06] MEDS: NSS + 20MEQ KCL 20 MEQ/1,000 ML BAG IV SCH ×2 (04:07→16:59)
[2020-05-06] MEDS: LEVOTHYROXINE SODIUM 75 MCG TABLET PO SCH (05:24)
[2020-05-06] MEDS: PIPERACILLIN/TAZOBACTAM 3.375 GM in DEXTROSE 5% 100 ML IV SCH (05:24)
[2020-05-06 07:19] LABS: Hematocrit (blood only) 33.4 % (37-47); Hemoglobin 10.8 g/dL (12.0-16.0); Mean Corpuscular Hemoglobin 29.8 pg (25-34); Mean Corpuscular Hgb Conc 32.3 g/dL (32-36); Mean Corpuscular Volume 92.3 fL (80-100); Mean Platelet Volume 9.3 fL (7.4-10.4); Platelet Count 361 K/uL (130-400); RDW Coefficient of Variation 14.5 % (11.5-14.5); RDW Standard Deviation 49.2 fL (36.4-46.3); Red Blood Count 3.62 M/uL (4.2-5.4); White Blood Count 22.08 K/uL (4.8-10.8)
[2020-05-06] MEDS: LISINOPRIL/HCTZ 20/12.5MG 1 TAB TAB PO SCH (08:52)
[2020-05-06] MEDS: PANTOprazole 40 MG TAB PO SCH (08:53)
[2020-05-06] MEDS: TRAMADOL HCL 50 MG TABLET PO PRN (08:58)
[2020-05-06] MEDS: metroNIDAZOLE 500 MG/100 ML BAG IV SCH ×2 (10:04→16:59)
[2020-05-06] MEDS: CIPROFLOXACIN / D5W 400 MG/200 ML BAG IV SCH ×2 (10:04→21:11)
--- NOTE | 2020-05-06 10:30 | Pulmonology Progress Note ---
Date of Service May 06, 2020 Assessment & Plan (1) Pleural effusion: --Left-sided pleural effusion Patient had intra-abdominal abscess which was drained on 05/03/2020. Left-sided effusion likely related to the abdominal process and represents a sympathetic effusion. Pleural effusion does not appear to be exudative in nature. Cytology and cultures pending. Pleural pH was 7.46. Glucose is 89. It does not appear to be an empyema. It was very neutrophilic. Triglycerides were within normal limits so chylothorax appears to be less likely. Pleural amylase did not appear to be substantially elevated. I do not have a serum amylase level so it is difficult to determine the significance of this value. Pleural lipase pending. I think she does appear to be overall profoundly weakened from this illness and she will likely need rehab. I did discuss the case with the patient's hospitalist at the bedside. Pulmonary will continue to follow from the periphery. Please call us with questions if needed. Thank you. (2) Exudative pleural effusion: (3) Weakness: (4) Bile leak, postoperative: Admission and Anticipated Discharge Date Admission Date: May 03, 2020 Subjective Patient is laying in bed. She has some abdominal discomfort. She notes a decreased appetite. She does not have any issues with her breathing. Denies any chest pain. Does note some epigastric pain. No fevers or chills. Not requiring any supplemental oxygen. Review of Systems Review of Systems: All systems reviewed & are unremarkable except as noted in Subjective Physical Exam Physical Exam: Constitutional: Patient appears to be of their stated age. Patient is in no apparent distress. Patient is well-developed. Eyes: Pupils are equal round and reactive to light. Conjunctivae are normal. Anicteric sclera. Neck: Trachea is midline. Visual inspection is normal. Respiratory: Clear to auscultation bilaterally. No use of accessory muscles. No significant clubbing noted. Cardiovascular: Regular rate and rhythm. No murmurs. No edema. Gastrointestinal:. Epigastric tenderness on palpation. Numerous port scars noted with Steri-Strips in place. Musculoskeletal: Generally appears weak and lethargic. Skin: No rashes, warm dry and intact. Neurologic: No obvious focal neurological deficits seen. Psychiatric: Appears a bit depressed. She is alert and oriented x3 Results & Data Results & Data ([facility]) Vital Signs (Past 12 Hours) Vital Signs Temp Pulse Pulse Resp BP Pulse Ox 06/22/20 07:32 72 05/06/20 07:12 98.1 F 74 16 163/78 H 96 05/06/20 03:28 97.7 F 84 18 166/79 H 96 05/05/20 23:35 97.5 F L 76 18 174/79 H 95 I personally reviewed the patient's previous labs, chest imaging and previous pulmonary notes. PG Care Time/CCT Total # of Minutes Spent Total Time Spent with Patient: Total time spent is greater than 50% in coordination of care (as documented) at patient's floor/unit and/or counseling patient: Coding Level of Care Code 84246 Subseq Hosp Care Lvl 2 Diagnoses Pleural effusion J90 Exudative pleural effusion J90 Weakness R53.1 Bile leak, postoperative K91.89; K83.8
--- NOTE | 2020-05-06 11:12 | Gastroenterology Progress Note ---
Date of Service May 06, 2020 Assessment & Plan Admission and Anticipated Discharge Date Admission Date: May 03, 2020 Supervising Physician Co-Signing Physician Notes Attending attestation I have seen, examined this patient, and agree with the findings and above by our mid-level provider SORAYA Stark, with the following additions: - abdomen is soft, but tender, follow up with non-contrast CT - Continue IV abx Subjective Pt had thoracentesis last night - 550mL fluid removed from L chest She is c/o diffuse abd pain, poor appetite, mild nausea, reports not passing flatus Review of Systems Review of Systems: All systems reviewed & are unremarkable except as noted in HPI & below Physical Exam Constitutional: + ill appearing, + thin, well groomed and cooperative; + uncomfortable Eyes: PERRL, conjunctivae normal, anicteric sclerae ENMT: external ear and nose normal, oropharynx normal Respiratory: no respiratory distress and does not use accessory muscles Auscultation: + diminished lung sounds Cardiovascular: RRR, no murmur, no edema Gastrointestinal (Abdomen): Inspection/Auscultation: + hypoactive bowel sounds Percussion/Palpation: + abdomen tender (diffuse) and abdomen soft Skin: no rashes, warm and dry no jaundice Psychiatric: A+Ox3, euthymic affect Lymphatic: no lymphedema Results & Data ([facility]) Vital Signs (Past 12 Hours) Vital Signs Temp Pulse Pulse Resp BP Pulse Ox 05/06/20 11:03 36 C L 78 18 151/70 H 98 05/06/20 07:32 72 05/06/20 07:12 36.7 C 74 16 163/78 H 96 05/06/20 03:28 36.5 C 84 18 166/79 H 96 05/05/20 23:35 36.4 C L 76 18 174/79 H 95
--- NOTE | 2020-05-06 14:23 | CT Scan Report ---
CT SCAN OF THE ABDOMEN AND PELVIS WITHOUT CONTRAST CLINICAL HISTORY: re-eval abd abscess; abd pain COMPARISON STUDY: 05/03/2020 TECHNIQUE: CT scan of the abdomen and pelvis was performed from the lung bases to the proximal femurs . Images are reviewed in the axial, sagittal, and coronal planes. IV contrast was not administered fo r this examination. A dose lowering technique was utilized adhering to the principles of ALARA. CT DOSE: 334.10 mGy.cm FINDINGS: Lower chest: There are bilateral pleural effusions. There are basilar airspace opacities left greater than right statistically atelectatic Liver: There is pneumobilia. No space-occupying masses are visualized on this noncontrast examination . Gallbladder: Surgically absent. There is a biliary enteric stent. Spleen: Normal in size and attenuation. Pancreas: No intrinsic pancreatic masses are visualized. There is interval decrease in the size of th e large peripancreatic fluid collection in the region of the gastrohepatic ligament. There is evidenc e for gastric decompression with 2 double pigtail catheters. There is a persistent complex fluid shira ection located posterior to the gastric antrum. Evaluation is limited given the lack of intravenous a nd administered contrast. This measures approximately 9 cm in greatest dimension and appears similar in size to the preceding study Adrenal glands: Unremarkable. Kidneys: There are punctate nonobstructing right renal calculi. There is no hydronephrosis. Bowel: There are no transition zones indicate bowel obstruction. The appendix appears normal. There i s colonic diverticulosis. There is no evidence of acute diverticulitis. Peritoneum: There is low volume ascites. There is no free intraperitoneal air. Vasculature: The abdominal aorta is normal in course and caliber. Adenopathy: None. Pelvic viscera: The uterus is surgically absent. There is gas in the bladder, likely iatrogenic. Skeletal structures: There is an old left ischio pubic ring fracture. There is a stable subacute L1 c ompression fracture. IMPRESSION: 1. Technically limited study secondary to the absence of intravenous contrast 2. Bilateral pleural effusions and basilar airspace opacities likely atelectatic 3. Surgically absent gallbladder with a patent biliary enteric stent 4. Increasing low volume ascites 5. Interval transgastric drainage of a large cyst/abscess in the gastrohepatic ligament. This cyst/ab scess is markedly smaller. two transgastric pigtail catheters are visualized 6. Persistent poorly defined complex fluid collection posterior to the gastric antrum, similar in siz e to the preceding study 7. No evidence of bowel obstruction. No evidence of free air 8. Normal appendix. 9. Diverticulosis. No evidence of acute diverticulitis ACT 112: Negative or not required by law. Electronically signed by: Harsha Pelaez M.D. 05/06/2020 2:22 PM
--- NOTE | 2020-05-06 17:23 | Hospitalist Progress Note ---
Date of Service May 06, 2020 Assessment & Plan (1) Abdominal pain: 89yo F with a PMH of HTN, hypothyroidism, HLD and recent ERCP with stone removal and CBD stent placement as well as subsequent cholecystectomy last week at [facility] who presents with abdominal discomfort Mostly due to intraabdominal abscess from post cholecystectomy CT abdomen on admission showed several large and multiloculated fluid collections in the upper and mid abdomen that highly concerning for abscesses or possible bile leak WBC elevated at 31K and Procalcitonin elevated S/P laparoscopic cholecystectomy at [facility] last week Surgery on board Gastro on board ERCP done by Dr. Brown showed no evidence of Bile leak on occlusion cholangiogram S/P upper endoscopic ultrasound guided drainage of the large intraabdominal abscess performed on 05/[address] Brown Case discussed with GI recommended 3 weeks course of abx Will need CT abdomen with contrast in 3 weeks to assess resolution of the abscess and Plan to repeat ERCP for stent removal outpatient IV abx with Zosyn was changed to Cipro and Flagyl IV WBC slighly increased to 22k CT abd/pelvis showed interval transgastric drainage of a large cyst/abscess in the gastrohepatic ligament that is smaller. Persistent poorly defined complex fluid collection posterior to the gastric antrum, similar in size to the preceding study Diet advanced to Full liquid Continue monitor closely (2) Elevated WBC count: Leukocytosis of 31k with elevated procalcitonin Due to intraabdominal abscess WBC Increased to 22K today Blood cx no growth so far Intraabdominal pus grew gram negative bacilli and kayleen albican/duliniensis IV Zosyn was transition to IV Cipro/Flagyl Continue monitor CBC (3) Pleural effusion: Moderate left sided pleural effusion on CXR and CT abd/pelvis. Pulmonology on board S/P day#1 thoracentesis where 550 ml pleural fluid removed Pleural effusion does not appear to be exudative in nature. Pleural fluid sent for cytology and cultures pending. Saturated well on RA Continue monitor (4) Hypertension: BP has been fluctuated Possible attributed to pain and hospital setting Continue Lisinopril/HCTZ Continue monitor BP (5) Hypothyroidism: Continue levothyroxine Generalized weakness Due to multiple hospitalizations and recent surgical procedure PT/OT eval Fall precaution Will need placement to rehab DVT Ppx: SCD Code status: FULL PCP: Moon Dispo: Continue monitor closely Admission and Anticipated Discharge Date Admission Date: May 03, 2020 Subjective Pt was seen and examined Lying in bed with no distress Pt said that she feels depressed because of her health She said that she is having pain in her abdomen with movement She said that the tramadol helps a little I spoke to daughter yesterday and provided with updates Denies any chest pain, palpitation, dizziness and SOB Physical Exam Physical Exam: General- No acute distress Head- atraumatic Eyes- PERRL, EOMI, ENT- oropharynx clear Neck- supple, no JVD Lungs- Diminished BS Heart- regular rhythm; + murmur Abdomen- normal bowel sounds, +abdominal tenderness with palpation Extremities- no calf tenderness Neuro- alert, oriented x 3; PERRL, EOMI; no facial palsy; no dysarthria Skin- warm & dry Results & Data Results & Data ([facility]) Vital Signs (Past 12 Hours) Vital Signs Temp Pulse Pulse Resp BP BP Pulse Ox 05/06/20 16:00 36.7 C 80 18 169/76 H 93 05/06/20 15:39 74 05/06/20 11:03 36 C L 78 18 151/70 H 98 05/06/20 07:32 72 05/06/20 07:12 36.7 C 74 16 163/78 H 96 (1) Elevated WBC count Leukocytosis type: other Qualified Code(s): D72.828 - Other elevated white blood cell count
[2020-05-06] MEDS: SIMVASTATIN 20 MG TAB PO SCH (21:11)
[2020-05-07] MEDS: metroNIDAZOLE 500 MG/100 ML BAG IV SCH ×3 (00:04→17:27)
[2020-05-07] MEDS: NSS + 20MEQ KCL 20 MEQ/1,000 ML BAG IV SCH ×2 (04:07→17:27)
[2020-05-07] MEDS: LEVOTHYROXINE SODIUM 75 MCG TABLET PO SCH (05:31)
[2020-05-07 07:05] LABS: Hematocrit (blood only) 36.6 % (37-47); Hemoglobin 11.6 g/dL (12.0-16.0); Mean Corpuscular Hemoglobin 29.1 pg (25-34); Mean Corpuscular Hgb Conc 31.7 g/dL (32-36); Mean Corpuscular Volume 91.7 fL (80-100); Mean Platelet Volume 9.4 fL (7.4-10.4); Platelet Count 416 K/uL (130-400); RDW Coefficient of Variation 14.2 % (11.5-14.5); RDW Standard Deviation 47.7 fL (36.4-46.3); Red Blood Count 3.99 M/uL (4.2-5.4); White Blood Count 20.95 K/uL (4.8-10.8)
[2020-05-07 07:40] LABS: BUN Creatinine Ratio 14.4 (10-20); Calcium 7.5 mg/dl (8.5-10.1); Creatinine Clr Calc Pharmacy 52.5 ml/min; Est GFR (African American) 93.7; Est GFR (Non-African American) 80.8; Potassium 4.1 mmol/L (3.5-5.1)
[2020-05-07] MEDS: TRAMADOL HCL 50 MG TABLET PO PRN ×3 (08:32→20:36)
[2020-05-07] MEDS: LISINOPRIL/HCTZ 20/12.5MG 1 TAB TAB PO SCH (08:33)
[2020-05-07] MEDS: PANTOprazole 40 MG TAB PO SCH (08:33)
[2020-05-07] MEDS: CIPROFLOXACIN / D5W 400 MG/200 ML BAG IV SCH ×2 (08:33→20:31)
--- NOTE | 2020-05-07 11:45 | Gastroenterology Progress Note ---
Date of Service May 07, 2020 Assessment & Plan (1) S/P laparoscopic cholecystectomy: (2) Abdominal abscess: Pt is a 89 y/o female w s/p ERCP and cholecystitis who presented w leukocytosis and found to have abd abscess s/p drainage via ERCP on 05/04/2020. Her abd pain is improving slowly. She remains afebrile, WBC still up at 20K while on Cipro/Flagyl IV antibx. Repeat Ct abd/pelvis w/o contrast yesterday showed abscess was drained well, 2 transgastric pigtail catheters are in place. - Stay on FL diet for now - Low threshold to broaden pt's antibx coverage if spiking temp, increasing WBC or change of symptoms (increased abd pain, n/v) - Repeat CT abd/pelvis in about 2 week's time after DC and repeat ERCP in [address] Brown Admission and Anticipated Discharge Date Admission Date: May 03, 2020 Supervising Physician Co-Signing Physician Notes Attending attestation I have seen, examined this patient, and agree with the findings and above by our mid-level provider SORAYA Stark, with the following additions Less abdominal pain today, would like to get up out of the bed overall appearances were improved. But have a low threshold of broadening antibiotics Subjective Pt denies nausea or vomiting. Mild abd pain, improved from yesterday Remains afebrile. WBC 20K Review of Systems Review of Systems: All systems reviewed & are unremarkable except as noted in HPI & below Physical Exam Constitutional: WD/WN, vitals as above + thin, well groomed, cooperative and comfortable Eyes: PERRL, conjunctivae normal, anicteric sclerae ENMT: external ear and nose normal, oropharynx normal Respiratory: normal respiratory effort, lungs clear to auscultation Cardiovascular: RRR, no murmur, no edema Gastrointestinal (Abdomen): Inspection/Auscultation: normal bowel sounds Percussion/Palpation: + abdomen tender (upper abd) and abdomen soft Skin: no rashes, warm and dry no jaundice Psychiatric: A+Ox3, euthymic affect Lymphatic: no lymphedema Results & Data ([facility]) Vital Signs (Past 12 Hours) Vital Signs Temp Pulse Pulse Resp BP BP Pulse Ox 05/07/20 11:25 36.6 C 20 174/70 H 190/76 H 96 05/07/20 07:25 76 05/07/20 07:05 36.9 C 75 16 166/68 H 94 05/07/20 03:08 37 C 81 16 144/66 H 94 05/06/20 23:49 80
[2020-05-07] MEDS: ACETAMINOPHEN 1,000 MG/100 ML VIAL IV PRN (17:31)
[2020-05-07] MEDS: HydrALAZINE HCL 20 MG/ML VIAL IV PRN (17:31)
[2020-05-07] MEDS: SIMVASTATIN 20 MG TAB PO SCH (20:31)
--- NOTE | 2020-05-07 20:40 | Hospitalist Progress Note ---
Date of Service May 07, 2020 Assessment & Plan (1) Abdominal pain: 89yo F with a PMH of HTN, hypothyroidism, HLD and recent ERCP with stone removal and CBD stent placement as well as subsequent cholecystectomy last week at [facility] who presents with abdominal discomfort Mostly due to intraabdominal abscess from post cholecystectomy CT abdomen on admission showed several large and multiloculated fluid collections in the upper and mid abdomen that highly concerning for abscesses or possible bile leak WBC elevated at 31K and Procalcitonin elevated S/P laparoscopic cholecystectomy at [facility] last week Surgery on board Gastro on board ERCP done by Dr. Brown showed no evidence of Bile leak on occlusion cholangiogram S/P upper endoscopic ultrasound guided drainage of the large intraabdominal abscess performed on 05/[address] Brown Case discussed with GI recommended 3 weeks course of abx Will need CT abdomen with contrast in 3 weeks to assess resolution of the abscess and Plan to repeat ERCP for stent removal outpatient IV abx with Zosyn was changed to Cipro and Flagyl IV WBC slightly increased to 20k today CT abd/pelvis showed interval transgastric drainage of a large cyst/abscess in the gastrohepatic ligament that is smaller. Persistent poorly defined complex fluid collection posterior to the gastric antrum, similar in size to the preceding study Continue Full liquid diet Continue monitor closely (2) Elevated WBC count: Leukocytosis of 31k with elevated procalcitonin Due to intraabdominal abscess WBC decreased to 20K today Blood cx no growth so far Intraabdominal pus grew gram negative bacilli and kayleen albican/duliniensis IV Zosyn was transition to IV Cipro/Flagyl Continue IV Cipro/Flagyl for now Continue monitor CBC (3) Pleural effusion: Moderate left sided pleural effusion on CXR and CT abd/pelvis. Pulmonology on board S/P day#1 thoracentesis where 550 ml pleural fluid removed Pleural effusion does not appear to be exudative in nature. Pleural fluid cultures no growth Saturated well on RA Continue monitor (4) Hypertension: BP has been fluctuated Possible attributed to pain and hospital setting Continue Lisinopril/HCTZ Continue monitor BP (5) Hypothyroidism: Continue levothyroxine Generalized weakness Due to multiple hospitalizations and recent surgical procedure PT/OT eval Fall precaution Will need placement to rehab DVT Ppx: SCD Code status: FULL PCP: Moon Dispo: Continue monitor closely Admission and Anticipated Discharge Date Admission Date: May 03, 2020 Subjective Pt was seen and examined Lying in bed with no distress Pt said that she cannot walk around because she does not have her back brace She said that her pain is betting control with the IV tylenol Denies any chest pain, palpitation and SOB Physical Exam Physical Exam: General- No acute distress Head- atraumatic Eyes- PERRL, EOMI, ENT- oropharynx clear Neck- supple, no JVD Lungs- Diminished BS Heart- regular rhythm; + murmur Abdomen- normal bowel sounds, +abdominal tenderness with palpation Extremities- no calf tenderness Neuro- alert, oriented x 3; PERRL, EOMI; no facial palsy; no dysarthria Skin- warm & dry Results & Data Results & Data ([facility]) Vital Signs (Past 12 Hours) Vital Signs Temp Pulse Pulse Resp BP BP Pulse Ox 05/07/20 19:27 36.9 C 77 19 134/61 93 05/07/20 17:25 186/70 H 193/78 H 05/07/20 16:00 77 05/07/20 15:16 36.8 C 77 18 185/72 H 93 05/07/20 11:25 36.6 C 20 174/70 H 190/76 H 96 (1) Elevated WBC count Leukocytosis type: other Qualified Code(s): D72.828 - Other elevated white blood cell count
[2020-05-08] MEDS: metroNIDAZOLE 500 MG/100 ML BAG IV SCH ×3 (01:02→17:22)
[2020-05-08] MEDS: LEVOTHYROXINE SODIUM 75 MCG TABLET PO SCH (05:30)
[2020-05-08] MEDS: TRAMADOL HCL 50 MG TABLET PO PRN ×2 (05:33→17:21)
[2020-05-08] MEDS: ACETAMINOPHEN 1,000 MG/100 ML VIAL IV PRN (09:18)
[2020-05-08] MEDS: PANTOprazole 40 MG TAB PO SCH (09:18)
[2020-05-08] MEDS: LISINOPRIL/HCTZ 20/12.5MG 1 TAB TAB PO SCH (09:18)
[2020-05-08] MEDS: CIPROFLOXACIN / D5W 400 MG/200 ML BAG IV SCH ×2 (09:19→21:02)
[2020-05-08] MEDS: NSS + 20MEQ KCL 20 MEQ/1,000 ML BAG IV SCH (09:26)
--- NOTE | 2020-05-08 10:45 | Hospitalist Progress Note ---
Date of Service May 08, 2020 Assessment & Plan (1) Abdominal pain: with Intraabdominal Abscess -Pt is a 89 y/o female w s/p ERCP and cholecystitis who presented w leukocytosis and found to have abd abscess s/p drainage via ERCP on 05/04/2020 -Blood cultures no growth; 05/04/2020 Intraabdominal pus grew Citrobacter freundii and Leah albicans/dubliniensis -currently on IV ciprofloxacin with IV metronidazole (previously was on empiric Zosyn at beginning of this hospital admission), and likely to need a total of 3 weeks of antibiotics total as per gastroenterology service -also that patient will need CT abdomen with contrast in 3 weeks to assess resolution of the abscess and Plan to repeat ERCP for stent removal outpatient by gastroenterology service -on fluid liquid diet -no acute tenderness on palpation currently, prn pain medications (2) Elevated WBC count: -admission leukocytosis above 30,000 -Leukocytosis secondary abdominal abscess and infection -recent labs with WBC in 20,000 -management as above -send C.difficle test with next bowel movement (3) Pleural effusion: Left sided pleural effusion -Moderate left sided pleural effusion on CXR and CT abd/pelvis on admission -Status post thoracentesis where 550 ml pleural fluid removed, Pleural effusion does not appear to be exudative in nature, Pleural fluid cultures no growth -on room air, follow up CXR ordered on 05/08/2020 (4) Hypertension: -hold the home dose HCTZ -continue the lisinopril 20 mg daily -there is prn hydralazine if needed for high blood pressure Hypokalemia -admission serum of 3 on admission, levels normalized, stopped the IV fluids with supplementary potassium Hypomagnesemia -serum magnesium 1.6 on 05/08/2020, give IV magnesium and oral magnesium Hyponatremia -may be due to recent IV fluids versus from diuretic medication, hold the home dose blood pressure medications for now (5) Hypothyroidism: -Continue levothyroxine Generalized weakness -Due to multiple hospitalizations and recent surgical procedure -continue PT/OT evaluations with back brace, may be candidate for inpatient rehabilitation center after hospital stay DVT Ppx: SCD Code status: FULL Admission and Anticipated Discharge Date Admission Date: May 03, 2020 Subjective Medical doctor had walked by patient's room earlier today to see other patients during rounds and patient was seen sitting up in chair with the back brace. When medical doctor returned to see her for full physical exam, patient laying flat on the bed. She did not wish to be bothered much and denied any acute pain as she continued to close her eyes to try to sleep. There are IV ciprofloxacin, IV metronidazole, and IV fluids with potassium running Review of Systems Review of Systems: All systems reviewed & are unremarkable except as noted in Subjective Physical Exam Constitutional: comfortable Neck: trachea midline, no thyromegaly normal visual inspection Respiratory: normal respiratory effort, lungs clear to auscultation Cardiovascular: Rate/Rhythm: regular rate and regular rhythm Gastrointestinal (Abdomen): normal bowel sounds, soft, nontender, no hepatosplenomegaly Musculoskeletal: Head/Neck/Chest: normocephalic Neurologic: awake Psychiatric: Orientation: alert and cooperative Results & Data Results & Data ([facility]) Vital Signs (Past 12 Hours) Vital Signs Temp Pulse Pulse Pulse Resp BP BP 05/08/20 08:05 81 136/72 05/08/20 08:00 82 152/67 H 05/08/20 07:44 73 05/08/20 07:15 37.1 C 79 18 183/72 H 186/72 H 05/08/20 03:26 36.4 C L 70 18 171/71 H 05/08/20 00:27 95 H 05/07/20 23:35 36.3 C L 75 18 148/74 H Pulse Ox 05/08/20 08:05 05/08/20 08:00 05/08/20 07:44 05/08/20 07:15 94 05/08/20 03:26 96 05/08/20 00:27 05/07/20 23:35 95 (1) Elevated WBC count Leukocytosis type: other Qualified Code(s): D72.828 - Other elevated white blood cell count
[2020-05-08 10:48] LABS: Calcium 8.1 mg/dl (8.5-10.1); Creatinine Clr Calc Pharmacy 45.9 ml/min; Est GFR (Non-African American) 76.8; Magnesium 1.6 mg/dl (1.8-2.4); Potassium 4.3 mmol/L (3.5-5.1)
[2020-05-08] MEDS ORDERED: MAGNESIUM OXIDE 400 MG TAB PO ONE (11:00)
[2020-05-08] MEDS: MAGNESIUM SULFATE / D5W 1 GM/100 ML BAG IV SCH ×2 (11:10→13:33)
[2020-05-08 11:23] LABS: Hematocrit (blood only) 36.7 % (37-47); Hemoglobin 12.5 g/dL (12.0-16.0); Mean Corpuscular Hemoglobin 30.6 pg (25-34); Mean Platelet Volume 9.8 fL (7.4-10.4); Platelet Count 451 K/uL (130-400); RDW Coefficient of Variation 14.4 % (11.5-14.5); RDW Standard Deviation 46.8 fL (36.4-46.3); Red Blood Count 4.08 M/uL (4.2-5.4); White Blood Count 19.23 K/uL (4.8-10.8)
[2020-05-08 11:35] LABS: Mean Corpuscular Hgb Conc 34.1 g/dL (32-36)
--- NOTE | 2020-05-08 11:36 | XRay Report ---
XR chest 1V portable CLINICAL HISTORY: follow pleural effusion COMPARISON STUDY: 05/05/2020 FINDINGS: The cardiac and mediastinal contours remain stable. There is slight increase in the size of a left pleural effusion with associated left lower lobe atelectasis/consolidation. There is a small right pleural effusion. There is no lobar consolidation. There is no failure. Within the left upper q uadrant, too small double pigtail catheters are visualized. IMPRESSION: Slight increase in the size of bilateral pleural effusions. Associated left lower lobe at electasis/consolidation. ACT 112: Negative or not required by law. Electronically signed by: Harsha Pelaez M.D. 05/08/2020 11:35 AM
--- NOTE | 2020-05-08 11:50 | Gastroenterology Progress Note ---
Date of Service May 08, 2020 Assessment & Plan (1) S/P laparoscopic cholecystectomy: (2) Abdominal abscess: Pt is a 89 y/o female w s/p ERCP and cholecystitis who presented w leukocytosis and found to have abd abscess s/p drainage via ERCP on 05/04/2020. She remains afebrile, WBC decreasing on Cipro/Flagyl IV antibx. Repeat Ct abd/pelvis w/o contrast 05/06 showed abscess was drained well, 2 transgastric pigtail catheters are in place. Overall she is clinically improving - Continue Cipro/Flagyl IV antibx; may convert to PO form upon DC - FL diet; advance slowly as tolerated - Low threshold to broaden pt's antibx coverage if spiking temp, increasing WBC or change of symptoms (increased abd pain, n/v) - Repeat CT abd/pelvis in about 2 week's time after DC and repeat ERCP in [address] Brown - Gi will watch peripherally; pls recall prn Admission and Anticipated Discharge Date Admission Date: May 03, 2020 Supervising Physician Co-Signing Physician Notes I saw and evaluated the patient. She reports that her abdominal pain is much improved today. Recommendations Continue with broad-spectrum antibiotics for another 2 weeks Advance diet as tolerated Subjective Pt sitting up in chair, tolerated breakfast well, w/o n/v. Mild abd pain. Did have BM yesterday. Review of Systems Review of Systems: All systems reviewed & are unremarkable except as noted in HPI & below Physical Exam Constitutional: WD/WN, vitals as above + thin, well groomed, cooperative and comfortable Eyes: PERRL, conjunctivae normal, anicteric sclerae ENMT: external ear and nose normal, oropharynx normal Respiratory: normal respiratory effort, lungs clear to auscultation no respiratory distress and does not use accessory muscles Auscultation: + diminished lung sounds Cardiovascular: RRR, no murmur, no edema Gastrointestinal (Abdomen): Inspection/Auscultation: normal bowel sounds Percussion/Palpation: + abdomen tender (generalized, mild ) and abdomen soft Skin: no rashes, warm and dry no jaundice Psychiatric: A+Ox3, euthymic affect Lymphatic: no lymphedema Results & Data ([facility]) Vital Signs (Past 12 Hours) Vital Signs Temp Pulse Pulse Pulse Resp BP BP 05/08/20 08:05 81 136/72 05/08/20 08:00 82 152/67 H 05/08/20 07:44 73 05/08/20 07:15 37.1 C 79 18 183/72 H 186/72 H 05/08/20 03:26 36.4 C L 70 18 171/71 H 05/08/20 00:27 95 H Pulse Ox 05/08/20 08:05 05/08/20 08:00 05/08/20 07:44 05/08/20 07:15 94 05/08/20 03:26 96 05/08/20 00:27
[2020-05-08] MEDS ORDERED: ACETAMINOPHEN 1000 MG/100 ML IV IV ONE (19:00)
[2020-05-08] MEDS: SIMVASTATIN 20 MG TAB PO SCH (21:02)
[2020-05-09] MEDS: metroNIDAZOLE 500 MG/100 ML BAG IV SCH ×3 (01:07→17:34)
[2020-05-09] MEDS: HydrALAZINE HCL 20 MG/ML VIAL IV PRN (03:30)
[2020-05-09] MEDS: LEVOTHYROXINE SODIUM 75 MCG TABLET PO SCH (06:09)
[2020-05-09] MEDS: TRAMADOL HCL 50 MG TABLET PO PRN ×2 (06:09→12:15)
[2020-05-09 07:23] LABS: Basophils # (auto) 0.02 K/uL (0-0.2); Basophils % (auto) 0.1 %; Eosinophils # (auto) 0.08 K/uL (0-0.5); Eosinophils % (auto) 0.5 %; Hematocrit (blood only) 35.8 % (37-47); Immature Granulocytes # (auto) 0.26 K/uL (0.00-0.02); Immature Granulocytes % (auto) 1.5 %; Lymphocytes # (auto) 0.75 K/uL (1.2-3.4); Lymphocytes % (auto) 4.4 %; Mean Corpuscular Hemoglobin 29.9 pg (25-34); Mean Corpuscular Hgb Conc 33.5 g/dL (32-36); Mean Corpuscular Volume 89.3 fL (80-100); Mean Platelet Volume 9.4 fL (7.4-10.4); Monocytes # (auto) 1.42 K/uL (0.11-0.59); Monocytes % (auto) 8.4 %; Neutrophils # (auto) 14.47 K/uL (1.4-6.5); Neutrophils % (auto) 85.1 %; Platelet Count 666 K/uL (130-400); RDW Coefficient of Variation 14.3 % (11.5-14.5); RDW Standard Deviation 46.5 fL (36.4-46.3); Red Blood Count 4.01 M/uL (4.2-5.4)
[2020-05-09 07:29] LABS: Albumin Level 1.7 gm/dl (3.4-5.0); BUN Creatinine Ratio 15.3 (10-20); Calcium 7.7 mg/dl (8.5-10.1); Creatinine Clr Calc Pharmacy 44.9 ml/min; Est GFR (African American) 87.5; Est GFR (Non-African American) 75.5; Potassium 3.8 mmol/L (3.5-5.1)
[2020-05-09 07:31] LABS: Albumin Globulin Ratio 0.4 (0.9-2); Bilirubin,Total 0.5 mg/dl (0.2-1); Globulin 4.5 gm/dl (2.5-4.0); Phosphorus 1.6 mg/dl (2.5-4.9); Total Protein 6.2 gm/dl (6.4-8.2)
[2020-05-09] MEDS ORDERED: SODIUM PHOSPHATE 3 MMOL/1 ML INFUSION IV STA (07:37)
[2020-05-09] MEDS ORDERED: SODIUM PHOSPHATE 21 MMOL in SODIUM CHLORIDE 0.9% 500 ML IV ONE (08:00)
[2020-05-09] MEDS: MAGNESIUM OXIDE 400 MG TAB PO SCH (08:09)
[2020-05-09] MEDS: PANTOprazole 40 MG TAB PO SCH (08:09)
[2020-05-09] MEDS: AMLODIPINE BESYLATE 5 MG TAB PO SCH (08:09)
[2020-05-09] MEDS: lisinopriL 20 MG TAB PO SCH (08:09)
[2020-05-09] MEDS: POT PHOSPHATE MONOBASIC W/ SOD TAB PO SCH ×4 (08:10→20:41)
[2020-05-09] MEDS: CIPROFLOXACIN / D5W 400 MG/200 ML BAG IV SCH ×2 (09:15→20:40)
[2020-05-09] MEDS ORDERED: MoRPHine SULFATE 2 MG/ML CARP IV STA (13:33)
--- NOTE | 2020-05-09 13:40 | Hospitalist Progress Note ---
Date of Service May 09, 2020 Assessment & Plan (1) Abdominal pain: with Intraabdominal Abscess -Pt is a 89 y/o female w s/p ERCP and cholecystitis who presented w leukocytosis and found to have abd abscess s/p drainage via ERCP on 05/04/2020 -Blood cultures no growth; 05/04/2020 Intraabdominal pus grew Citrobacter freundii and Leah albicans/dubliniensis -currently on IV ciprofloxacin with IV metronidazole (previously was on empiric Zosyn at beginning of this hospital admission), and likely to need a total of 3 weeks of antibiotics total as per gastroenterology service -05/09/2020: patient with abdomen pain, will plan on CT abdomen with oral and IV contrast to further assess. No fevers. send urine analysis -also that patient will need CT abdomen with contrast in 3 weeks to assess resolution of the abscess and Plan to repeat ERCP for stent removal outpatient by gastroenterology service -on fluid liquid diet -no acute tenderness on palpation currently, prn pain medications (2) Elevated WBC count: -admission leukocytosis above 30,000 -Leukocytosis secondary abdominal abscess and infection -recent labs with WBC in 20,000 -white blood cell falling down to 17,000 -management as above -send C.difficle test with next bowel movement (3) Pleural effusion: Left sided pleural effusion -Moderate left sided pleural effusion on CXR and CT abd/pelvis on admission -Status post thoracentesis where 550 ml pleural fluid removed, Pleural effusion does not appear to be exudative in nature, Pleural fluid cultures no growth -on room air, follow up CXR ordered on 05/08/2020: Slight increase in the size of bilateral pleural effusions. Associated left lower lobe atelectasis/consolidation. (4) Hypertension: -hold the home dose HCTZ -replace home dose HCTZ with amlodipine 10 mg daily -continue the lisinopril 20 mg daily -there is prn hydralazine if needed for high blood pressure Hypokalemia -admission serum of 3 on admission, levels normalized, stopped the IV fluids with supplementary potassium on 05/08/2020 Hypomagnesemia -serum magnesium 1.6 on 05/08/2020, give IV magnesium and oral magnesium -serum magnesium improved Hypophosphatemia -serum phosphate 1.6 on 05/09/2020, give IV and oral phosphorous Hyponatremia -may be due to recent IV fluids versus from diuretic medication, hold the home dose blood pressure medications for now (5) Hypothyroidism: -Continue levothyroxine Generalized weakness -Due to multiple hospitalizations and recent surgical procedure -continue PT/OT evaluations with back brace, may be candidate for inpatient rehabilitation center after hospital stay DVT Ppx: SCD Code status: FULL daughter [phone], Admission and Anticipated Discharge Date Admission Date: May 03, 2020 Subjective Patient on bedpan. Patient reports frequent urination. Patient reports abdomen pain. Abdomen tender to palpation. no reported vomiting. no chest pain. no shortness of breath. on room air. no fevers Review of Systems Review of Systems: All systems reviewed & are unremarkable except as noted in Subjective Physical Exam Constitutional: WD/WN, vitals as above Eyes: PERRL, conjunctivae normal, anicteric sclerae EOM intact bilaterally ENMT: external ear and nose normal, oropharynx normal Neck: trachea midline, no thyromegaly normal visual inspection Respiratory: normal respiratory effort, lungs clear to auscultation Cardiovascular: Rate/Rhythm: regular rate and regular rhythm Gastrointestinal (Abdomen): Percussion/Palpation: abdomen soft tenderness to palpation Musculoskeletal: Head/Neck/Chest: normocephalic Neurologic: awake Psychiatric: Orientation: alert and cooperative Results & Data Results & Data ([facility]) Vital Signs (Past 12 Hours) Vital Signs Temp Pulse Resp BP Pulse Ox 05/09/20 12:05 36.7 C 96 H 18 153/71 H 94 05/09/20 08:00 36.3 C L 82 18 184/75 H 97 05/09/20 05:30 175/73 H 05/09/20 04:39 36.6 C 82 16 199/90 H 96 (1) Elevated WBC count Leukocytosis type: other Qualified Code(s): D72.828 - Other elevated white blood cell count
[2020-05-09 16:11] LABS: Appearance Urine Clear (Clear); Bacteria Urine Automated Negative (Negative); Bilirubin Urine Negative (Negative); Blood Urine Trace (Negative); Cast Urine Automated 0 /lpf (0-5); Color Urine Yellow; Epithelial Cell Urine Auto 20-30 /lpf (0-5); Glucose Urine UA Negative (Negative); Ketones Urine 1+ (Negative); Leukocyte Esterase Urine Negative (Negative); Nitrite Urine Negative (Negative); Protein Urine Negative (Negative); Urobilinogen Urine Negative (Negative)
[2020-05-09] MEDS ORDERED: IOVERSOL 100ml IV PRN (17:13)
--- NOTE | 2020-05-09 17:28 | CT Scan Report ---
CT abd pelvis oral and IV con CT DOSE: 260.24 mGy.cm HISTORY: Pain abscess TECHNIQUE: Multiaxial CT images of the abdomen and pelvis were performed following the use of intrave nous and oral contrast. A dose lowering technique was utilized adhering to the principles of ALARA. The bowel pattern is considered nonobstructing. There is a small amount of pelvic ascites which is un changed.: 05/06/2020 FINDINGS: Unchanged bilateral lower lobe atelectatic change combined with unchanged bilateral pleural effusions. Trace amount of perihepatic ascites. The various drainage catheters are within the stomach are unchanged in appearance. A large collection anterior and inferior to the pancreatic head appears in general unchanged. Additio nal collection in a perigastric location contain fluid as well as air is also unchanged. IMPRESSION: 1. Similar exam compared to the prior study. 2. Multifocal abscesses essentially unchanged given differences in scan technique. 3. Mild abdominal as well as low pelvic ascites. 4. Unchanged position of the multiple drainage catheters 5. Mild abdominal and pelvic ascites unchanged. 6. Mild body wall anasarca unchanged. 7. Bilateral pleural effusions with bibasilar atelectatic change also unchanged. ACT 112: Negative or not required by law. The above report was generated using voice recognition software. It may contain grammatical, syntax or spelling errors. Electronically signed by: Froilan Stinson M.D. 05/09/2020 5:26 PM
[2020-05-09] MEDS: SIMVASTATIN 20 MG TAB PO SCH (20:41)
[2020-05-09] MEDS: ACETAMINOPHEN 325 MG TAB PO PRN (20:49)
[2020-05-10] MEDS: TRAMADOL HCL 50 MG TABLET PO PRN ×2 (00:52→20:31)
[2020-05-10] MEDS: metroNIDAZOLE 500 MG/100 ML BAG IV SCH ×3 (01:06→17:29)
[2020-05-10] MEDS: LEVOTHYROXINE SODIUM 75 MCG TABLET PO SCH (05:43)
[2020-05-10] MEDS: MAGNESIUM OXIDE 400 MG TAB PO SCH (07:46)
[2020-05-10] MEDS: lisinopriL 20 MG TAB PO SCH (07:46)
[2020-05-10] MEDS: PANTOprazole 40 MG TAB PO SCH (07:46)
[2020-05-10] MEDS: POT PHOSPHATE MONOBASIC W/ SOD TAB PO SCH (07:46)
[2020-05-10] MEDS: AMLODIPINE BESYLATE 5 MG TAB PO SCH (08:27)
[2020-05-10] MEDS: ACETAMINOPHEN 325 MG TAB PO PRN (08:53)
[2020-05-10] MEDS: CIPROFLOXACIN / D5W 400 MG/200 ML BAG IV SCH ×2 (08:54→20:35)
[2020-05-10] MEDS ORDERED: AMLODIPINE BESYLATE 5 MG TAB PO SCH (09:00)
[2020-05-10 11:40] LABS: Basophils # (auto) 0.01 K/uL (0-0.2); Basophils % (auto) 0.1 %; Eosinophils # (auto) 0.05 K/uL (0-0.5); Eosinophils % (auto) 0.4 %; Hematocrit (blood only) 38.5 % (37-47); Hemoglobin 12.7 g/dL (12.0-16.0); Immature Granulocytes # (auto) 0.15 K/uL (0.00-0.02); Immature Granulocytes % (auto) 1.3 %; Lymphocytes # (auto) 0.59 K/uL (1.2-3.4); Lymphocytes % (auto) 5.2 %; Mean Corpuscular Volume 90.8 fL (80-100); Mean Platelet Volume 9.1 fL (7.4-10.4); Monocytes # (auto) 0.86 K/uL (0.11-0.59); Monocytes % (auto) 7.6 %; Neutrophils # (auto) 9.66 K/uL (1.4-6.5); Neutrophils % (auto) 85.4 %; Platelet Count 643 K/uL (130-400); RDW Coefficient of Variation 14.6 % (11.5-14.5); RDW Standard Deviation 47.4 fL (36.4-46.3); Red Blood Count 4.24 M/uL (4.2-5.4); White Blood Count 11.32 K/uL (4.8-10.8)
[2020-05-10 12:01] LABS: BUN Creatinine Ratio 13.8 (10-20); Creatinine Clr Calc Pharmacy 42.6 ml/min; Est GFR (African American) 86.1; Est GFR (Non-African American) 74.3; Magnesium 1.9 mg/dl (1.8-2.4); Potassium 3.5 mmol/L (3.5-5.1)
[2020-05-10 12:04] LABS: Albumin Globulin Ratio 0.4 (0.9-2); Bilirubin,Total 0.4 mg/dl (0.2-1); Globulin 4.6 gm/dl (2.5-4.0); Phosphorus 2.9 mg/dl (2.5-4.9); Total Protein 6.6 gm/dl (6.4-8.2)
[2020-05-10] MEDS ORDERED: POTASSIUM CHLORIDE 20 MEQ/15 ML UDC PO STA (12:34)
--- NOTE | 2020-05-10 12:35 | Hospitalist Progress Note ---
Date of Service May 10, 2020 Assessment & Plan (1) Abdominal pain: S/P laparoscopic cholecystectomy PRIOR TO THIS ADMISSION Abdominal pain with Intraabdominal Abscess (s/p drainage via ERCP on 05/04/2020) -Pt is a 89 y/o female w s/p ERCP and cholecystitis who presented w leukocytosis and found to have abd abscess s/p drainage via ERCP on 05/04/2020 -Blood cultures no growth; 05/04/2020 Intraabdominal pus grew Citrobacter freundii and Leah albicans/dubliniensis -currently on IV ciprofloxacin with IV metronidazole (previously was on empiric Zosyn at beginning of this hospital admission), and likely to need a total of 3 weeks of antibiotics total as per gastroenterology service but this can be transitioned as oral antibiotics -05/09/2020: patient with abdomen pain, will plan on CT abdomen with oral and IV contrast to further assess. No fevers. send urine analysis -also that patient will need CT abdomen with contrast in 3 weeks to assess resolution of the abscess and Plan to repeat ERCP for stent removal outpatient by gastroenterology service -no acute tenderness on palpation currently, prn pain medications Hypoalbuminemia reflecting protein calorie malnutrition -05/09/2020: discussed with Stacia that CT abdomen/pelvis not showing any new acute issues and also that Gastroenterology attending physician not advising partial parental nutrition with PICC line at this time and suggested better patient outcome with oral nutrition with more supervision. -add on BOOST supplements with meals (2) Elevated WBC count: -admission leukocytosis above 30,000 -Leukocytosis secondary abdominal abscess and infection -recent labs with WBC in 20,000 -white blood cell falling down to 17,000 by 05/09/2020 and now is 11,000 by 05/10/2020 -management as above -send C.difficle test pending collection (3) Pleural effusion: Left sided pleural effusion -Moderate left sided pleural effusion on CXR and CT abd/pelvis on admission -Status post thoracentesis where 550 ml pleural fluid removed, Pleural effusion does not appear to be exudative in nature, Pleural fluid cultures no growth -on room air, follow up CXR ordered on 05/08/2020: Slight increase in the size of bilateral pleural effusions. Associated left lower lobe atelectasis/consolidation. remains on room air (4) Hypertension: -hold the home dose HCTZ -replace home dose HCTZ with amlodipine 10 mg daily -continue the lisinopril 20 mg daily -there is prn hydralazine if needed for high blood pressure Hypokalemia -admission serum of 3 on admission, levels normalized, stopped the IV fluids with supplementary potassium on 05/08/2020 -serum potassium as 3.5 by 05/10/2020, give additional oral potassium Hypomagnesemia -serum magnesium 1.6 on 05/08/2020, give IV magnesium and oral magnesium -serum magnesium improved to 1.9, give IV magnesium on 05/10/2020 Hypophosphatemia -serum phosphate 1.6 on 05/09/2020, give IV and oral phosphorous -serum phosphate normalized by 05/10/2020 Hyponatremia -avoid HCTZ (5) Hypothyroidism: -Continue levothyroxine Generalized weakness History of lumbar spine (L1) Fracture -Due to multiple hospitalizations and recent surgical procedure -continue PT/OT evaluations with back brace, may be candidate for inpatient rehabilitation center after hospital stay however currently denied the authorization as per case management, re-assess by WednesdayMay 13 DVT Ppx: SCD Code status: FULL daughter [phone], Admission and Anticipated Discharge Date Admission Date: May 03, 2020 Subjective Patient tolerating diet. denies throat pain. ate half of the breakfast today. her abdominal discomfort is absent today. breathing on room air. no dizziness. no headache. no vomiting. no distress Review of Systems Review of Systems: All systems reviewed & are unremarkable except as noted in Subjective Physical Exam Constitutional: WD/WN, vitals as above comfortable Eyes: PERRL, conjunctivae normal, anicteric sclerae EOM intact bilaterally ENMT: external ear and nose normal, oropharynx normal Neck: trachea midline, no thyromegaly normal visual inspection Respiratory: normal respiratory effort, lungs clear to auscultation Cardiovascular: Rate/Rhythm: regular rate and regular rhythm Gastrointestinal (Abdomen): normal bowel sounds, soft, nontender, no hepatosplenomegaly Percussion/Palpation: abdomen soft Musculoskeletal: Head/Neck/Chest: normocephalic Neurologic: awake Psychiatric: Orientation: alert and cooperative Results & Data Results & Data ([facility]) Vital Signs (Past 12 Hours) Vital Signs Temp Pulse Pulse Resp BP BP Pulse Ox 05/10/20 12:16 36.5 C 84 18 113/61 92 05/10/20 07:55 36.1 C L 82 20 123/58 L 94 05/10/20 03:00 36.8 C 82 20 139/68 94 05/10/20 02:15 86 (1) Elevated WBC count Leukocytosis type: other Qualified Code(s): D72.828 - Other elevated white blood cell count
[2020-05-10] MEDS ORDERED: MAGNESIUM SULFATE / D5W 1 GM/100 ML BAG IV ONE (12:45)
[2020-05-10] MEDS ORDERED: CALCIUM GLUCONATE 10% 1,000 MG in SODIUM CHLORIDE 0.9% 50 ML IV ONE (17:45)
[2020-05-10] MEDS: SIMVASTATIN 20 MG TAB PO SCH (20:31)
[2020-05-11] MEDS: metroNIDAZOLE 500 MG/100 ML BAG IV SCH ×3 (01:25→18:30)
[2020-05-11] MEDS: TRAMADOL HCL 50 MG TABLET PO PRN (04:24)
[2020-05-11] MEDS: LEVOTHYROXINE SODIUM 75 MCG TABLET PO SCH (06:02)
[2020-05-11 08:01] LABS: Basophils # (auto) 0.02 K/uL (0-0.2); Basophils % (auto) 0.2 %; Eosinophils # (auto) 0.09 K/uL (0-0.5); Eosinophils % (auto) 0.7 %; Hematocrit (blood only) 33.3 % (37-47); Hemoglobin 10.6 g/dL (12.0-16.0); Immature Granulocytes # (auto) 0.12 K/uL (0.00-0.02); Immature Granulocytes % (auto) 0.9 %; Lymphocytes # (auto) 0.77 K/uL (1.2-3.4); Lymphocytes % (auto) 5.9 %; Mean Corpuscular Hemoglobin 28.7 pg (25-34); Mean Corpuscular Hgb Conc 31.8 g/dL (32-36); Mean Corpuscular Volume 90.2 fL (80-100); Monocytes # (auto) 1.23 K/uL (0.11-0.59); Monocytes % (auto) 9.4 %; Neutrophils # (auto) 10.86 K/uL (1.4-6.5); Neutrophils % (auto) 82.9 %; Platelet Count 658 K/uL (130-400); RDW Coefficient of Variation 14.7 % (11.5-14.5); RDW Standard Deviation 47.6 fL (36.4-46.3); Red Blood Count 3.69 M/uL (4.2-5.4); White Blood Count 13.09 K/uL (4.8-10.8)
[2020-05-11] MEDS: CIPROFLOXACIN / D5W 400 MG/200 ML BAG IV SCH ×2 (08:18→20:49)
[2020-05-11] MEDS: lisinopriL 20 MG TAB PO SCH (08:19)
[2020-05-11] MEDS: AMLODIPINE BESYLATE 5 MG TAB PO SCH (08:19)
[2020-05-11] MEDS: MAGNESIUM OXIDE 400 MG TAB PO SCH (08:19)
[2020-05-11] MEDS: PANTOprazole 40 MG TAB PO SCH (08:20)
[2020-05-11 08:36] LABS: BUN Creatinine Ratio 14.7 (10-20); Calcium 7.7 mg/dl (8.5-10.1); Creatinine Clr Calc Pharmacy 45.9 ml/min; Est GFR (African American) 90.8; Est GFR (Non-African American) 78.3; Magnesium 1.9 mg/dl (1.8-2.4); Potassium 3.7 mmol/L (3.5-5.1)
[2020-05-11 08:40] LABS: Phosphorus 1.7 mg/dl (2.5-4.9)
[2020-05-11] MEDS ORDERED: PROMETHAZINE HCL 6.25 MG in SODIUM CHLORIDE 0.9% 50 ML IV PRN (13:01)
[2020-05-11] MEDS ORDERED: POTASSIUM PHOS 3 MMOL/1 ML INFUSION IV STA (13:57)
--- NOTE | 2020-05-11 14:09 | Hospitalist Progress Note ---
Date of Service May 11, 2020 Assessment & Plan (1) Abdominal pain: S/P laparoscopic cholecystectomy PRIOR TO THIS ADMISSION Abdominal pain with Intraabdominal Abscess (s/p drainage via ERCP on 05/04/2020) -Pt is a 89 y/o female w s/p ERCP and cholecystitis who presented w leukocytosis and found to have abd abscess s/p drainage via ERCP on 05/04/2020 -Blood cultures no growth; 05/04/2020 Intraabdominal pus grew Citrobacter freundii and Leah albicans/dubliniensis -currently on IV ciprofloxacin with IV metronidazole (previously was on empiric Zosyn at beginning of this hospital admission), and likely to need a total of 3 weeks of antibiotics total as per gastroenterology service but this can be transitioned as oral antibiotics -05/09/2020: patient with abdomen pain, CT scan of abdomen 1. Similar exam compared to the prior study. 2. Multifocal abscesses essentially unchanged given differences in scan technique. 3. Mild abdominal as well as low pelvic ascites. 4. Unchanged position of the multiple drainage catheters 5. Mild abdominal and pelvic ascites unchanged. 6. Mild body wall anasarca unchanged. 7. Bilateral pleural effusions with bibasilar atelectatic change also unchanged. -also note that patient will need CT abdomen with contrast in 3 weeks to assess resolution of the abscess and Plan to repeat ERCP for stent removal outpatient by gastroenterology service -patient with nausea today, give prn anti-emetics Hypoalbuminemia reflecting protein calorie malnutrition -05/09/2020: discussed with Stacia that CT abdomen/pelvis not showing any new acute issues and also that Gastroenterology attending physician not advising partial parental nutrition with PICC line at this time and suggested better patient outcome with oral nutrition with more supervision. -give BOOST supplements with meals (2) Elevated WBC count: -admission leukocytosis above 30,000 -Leukocytosis secondary abdominal abscess and infection -recent labs with WBC in 20,000 -white blood cell falling down to 17,000 by 05/09/2020 and now is 11,000 by 05/10/2020 and 13,000 by 05/11/2020 -C.difficle test on 05/11/2020 -management as above (3) Pleural effusion: Left sided pleural effusion -Moderate left sided pleural effusion on CXR and CT abd/pelvis on admission -Status post thoracentesis where 550 ml pleural fluid removed, Pleural effusion does not appear to be exudative in nature, Pleural fluid cultures no growth -on room air, follow up CXR ordered on 05/08/2020: Slight increase in the size of bilateral pleural effusions. Associated left lower lobe atelectasis/consolidation. remains on room air (4) Hypertension: -hold the home dose HCTZ -had replaced home dose HCTZ with amlodipine 10 mg daily, continue amlodipine -continue the lisinopril 20 mg daily -there is prn hydralazine if needed for high blood pressure Hypokalemia -admission serum of 3 on admission, levels normalized, stopped the IV fluids with supplementary potassium on 05/08/2020 -serum potassium as 3.5 by 05/10/2020, give additional oral potassium Hypomagnesemia -serum magnesium 1.6 on 05/08/2020, give IV magnesium and oral magnesium -serum magnesium improved to 1.9, give IV magnesium on 05/10/2020 Hypophosphatemia -serum phosphate 1.6 on 05/09/2020, give IV and oral phosphorous -serum phosphate normalized by 05/10/2020 but again decreased to 1.7 on 05/11/2020, further IV and oral phosphate supplements to be givem Hyponatremia -avoid HCTZ Vitamin D deficiency -low vitamin D levels, mildly low calcium levels (low ionized calcium levels also), elevated PTH -patient was given some calcium gluconate and to started vitamin D 50,000 units every weekly starting on 05/11/2020 (5) Hypothyroidism: -Continue levothyroxine Generalized weakness History of lumbar spine (L1) Fracture -Due to multiple hospitalizations and recent surgical procedure -continue PT/OT evaluations with back brace, may be candidate for inpatient rehabilitation center after hospital stay however currently denied the authorization as per case management, re-assess by WednesdayMay 13 DVT Ppx: SCD Code status: FULL daughter [phone], Admission and Anticipated Discharge Date Admission Date: May 03, 2020 Subjective patient wth nausea today. no acute distress. seems fatigued. on room air. no shortness of breath. no chest pain. no palpitations. no dizziness. no headache Review of Systems Review of Systems: All systems reviewed & are unremarkable except as noted in Subjective Physical Exam Constitutional: WD/WN, vitals as above cooperative Eyes: PERRL, conjunctivae normal, anicteric sclerae EOM intact bilaterally ENMT: external ear and nose normal, oropharynx normal Neck: trachea midline, no thyromegaly normal visual inspection Respiratory: normal respiratory effort, lungs clear to auscultation Cardiovascular: Rate/Rhythm: regular rate and regular rhythm Gastrointestinal (Abdomen): normal bowel sounds, soft, nontender, no hepatosplenomegaly Percussion/Palpation: abdomen soft Musculoskeletal: Head/Neck/Chest: normocephalic Neurologic: awake Psychiatric: Orientation: alert and cooperative Results & Data Results & Data ([facility]) Vital Signs (Past 12 Hours) Vital Signs Temp Pulse Pulse Resp BP BP Pulse Ox 05/11/20 11:51 36.6 C 75 16 127/69 94 05/11/20 08:00 79 05/11/20 07:40 36.7 C 80 16 127/69 92 05/11/20 02:39 36.6 C 84 18 146/64 H 92 (1) Elevated WBC count Leukocytosis type: other Qualified Code(s): D72.828 - Other elevated white blood cell count
[2020-05-11] MEDS ORDERED: CALCIUM GLUCONATE 10% 1,000 MG in SODIUM CHLORIDE 0.9% 50 ML IV ONE (14:15)
[2020-05-11] MEDS ORDERED: POTASSIUM PHOSPHATE 21 MMOL in SODIUM CHLORIDE 0.9% 500 ML IV ONE (14:30)
[2020-05-11] MEDS ORDERED: ERGOCALCIFEROL 50,000 UNITS CAP PO SCH (15:00)
[2020-05-11] MEDS: POT PHOSPHATE MONOBASIC W/ SOD TAB PO SCH ×2 (20:00→20:49)
[2020-05-11] MEDS: SIMVASTATIN 20 MG TAB PO SCH (20:49)
[2020-05-12] MEDS: metroNIDAZOLE 500 MG/100 ML BAG IV SCH ×3 (01:02→16:10)
[2020-05-12] MEDS: LEVOTHYROXINE SODIUM 75 MCG TABLET PO SCH (05:53)
[2020-05-12 07:39] LABS: Basophils # (auto) 0.01 K/uL (0-0.2); Basophils % (auto) 0.1 %; Eosinophils % (auto) 0.9 %; Hematocrit (blood only) 31.6 % (37-47); Hemoglobin 10.5 g/dL (12.0-16.0); Immature Granulocytes # (auto) 0.07 K/uL (0.00-0.02); Immature Granulocytes % (auto) 0.6 %; Lymphocytes # (auto) 0.71 K/uL (1.2-3.4); Lymphocytes % (auto) 6.4 %; Mean Corpuscular Hemoglobin 29.7 pg (25-34); Mean Corpuscular Hgb Conc 33.2 g/dL (32-36); Mean Corpuscular Volume 89.3 fL (80-100); Mean Platelet Volume 8.7 fL (7.4-10.4); Monocytes # (auto) 1.17 K/uL (0.11-0.59); Monocytes % (auto) 10.6 %; Neutrophils # (auto) 9.02 K/uL (1.4-6.5); Neutrophils % (auto) 81.4 %; Platelet Count 566 K/uL (130-400); RDW Coefficient of Variation 14.9 % (11.5-14.5); RDW Standard Deviation 47.9 fL (36.4-46.3); Red Blood Count 3.54 M/uL (4.2-5.4); White Blood Count 11.08 K/uL (4.8-10.8)
[2020-05-12 08:09] LABS: BUN Creatinine Ratio 14.3 (10-20); Calcium 7.7 mg/dl (8.5-10.1); Creatinine Clr Calc Pharmacy 44.9 ml/min; Est GFR (African American) 90.3; Est GFR (Non-African American) 77.9; Magnesium 1.8 mg/dl (1.8-2.4)
[2020-05-12 08:16] LABS: Phosphorus 2.5 mg/dl (2.5-4.9)
[2020-05-12] MEDS: CIPROFLOXACIN / D5W 400 MG/200 ML BAG IV SCH ×2 (09:03→20:19)
[2020-05-12] MEDS: lisinopriL 20 MG TAB PO SCH (09:03)
[2020-05-12] MEDS: PANTOprazole 40 MG TAB PO SCH (09:03)
[2020-05-12] MEDS: MAGNESIUM OXIDE 400 MG TAB PO SCH (09:04)
[2020-05-12] MEDS: POT PHOSPHATE MONOBASIC W/ SOD TAB PO SCH ×2 (09:04→12:31)
[2020-05-12] MEDS: AMLODIPINE BESYLATE 5 MG TAB PO SCH (09:04)
[2020-05-12 10:39] LABS: Pleural Fluid, Cholesterol 28 mg/dL
--- NOTE | 2020-05-12 13:09 | Hospitalist Progress Note ---
Date of Service May 12, 2020 Assessment & Plan (1) Abdominal pain: S/P laparoscopic cholecystectomy PRIOR TO THIS ADMISSION Abdominal pain with Intraabdominal Abscess (s/p drainage via ERCP on 05/04/2020) -Pt is a 89 y/o female w s/p ERCP and cholecystitis who presented w leukocytosis and found to have abd abscess s/p drainage via ERCP on 05/04/2020 -Blood cultures no growth; 05/04/2020 Intraabdominal pus grew Citrobacter freundii and Leah albicans/dubliniensis -currently on IV ciprofloxacin with IV metronidazole (previously was on empiric Zosyn at beginning of this hospital admission), and likely to need a total of 3 weeks of antibiotics total as per gastroenterology service but this can be transitioned as oral antibiotics -05/09/2020: patient with abdomen pain, CT scan of abdomen 1. Similar exam compared to the prior study. 2. Multifocal abscesses essentially unchanged given differences in scan technique. 3. Mild abdominal as well as low pelvic ascites. 4. Unchanged position of the multiple drainage catheters 5. Mild abdominal and pelvic ascites unchanged. 6. Mild body wall anasarca unchanged. 7. Bilateral pleural effusions with bibasilar atelectatic change also unchanged. -also note that patient will need CT abdomen with contrast in 3 weeks to assess resolution of the abscess and Plan to repeat ERCP for stent removal outpatient by gastroenterology service -continue current IV antibiotics Hypoalbuminemia reflecting protein calorie malnutrition -05/09/2020: discussed with Stacia that CT abdomen/pelvis not showing any new acute issues and also that Gastroenterology attending physician not advising partial parental nutrition with PICC line at this time and suggested better patient outcome with oral nutrition with more supervision. -give BOOST supplements with meals (2) Elevated WBC count: -admission leukocytosis above 30,000 -Leukocytosis secondary abdominal abscess and infection -recent labs with WBC in 20,000 -white blood cell falling down to 17,000 by 05/09/2020 -is 11,000 by 05/10/2020 , then 13,000 by 05/11/2020, 11,000 by 05/12/2020 -C.difficle test on 05/11/2020 is negative -management as above (3) Pleural effusion: Left sided pleural effusion -Moderate left sided pleural effusion on CXR and CT abd/pelvis on admission -Status post thoracentesis where 550 ml pleural fluid removed, Pleural effusion does not appear to be exudative in nature, Pleural fluid cultures no growth -on room air, follow up CXR ordered on 05/08/2020: Slight increase in the size of bilateral pleural effusions. Associated left lower lobe atelectasis/consolida tion. remains on room air (4) Hypertension: -hold the home dose HCTZ -had replaced home dose HCTZ with amlodipine 10 mg daily, continue amlodipine -continue the lisinopril 20 mg daily -there is prn hydralazine if needed for high blood pressure Hypokalemia -admission serum of 3 on admission, levels normalized, stopped the IV fluids with supplementary potassium on 05/08/2020 -serum potassium as 3.5 by 05/10/2020, give additional oral potassium Hypomagnesemia -has needed oral magnesium supplements and intermittent IV magnesium on this admission Hypophosphatemia -serum phosphate 1.6 on 05/09/2020, give IV and oral phosphorous -serum phosphate normalized by 05/10/2020 but again decreased to 1.7 on 05/11/2020, further IV and oral phosphate supplements to be givem Hyponatremia -avoid HCTZ Vitamin D deficiency -low vitamin D levels, mildly low calcium levels (low ionized calcium levels also), elevated PTH -patient was given some calcium gluconate and to started vitamin D 50,000 units every weekly starting on 05/11/2020 (5) Hypothyroidism: -Continue levothyroxine Generalized weakness History of lumbar spine (L1) Fracture -Due to multiple hospitalizations and recent surgical procedure -continue PT/OT evaluations with back brace, may be candidate for inpatient rehabilitation center after hospital stay however currently denied the authorization as per case management, re-assess by WednesdayMay 13 DVT Ppx: SCD Code status: FULL daughter [phone], Admission and Anticipated Discharge Date Admission Date: May 03, 2020 Subjective patient in no acute distress. she reports that she at the meals without acute discomforts or nausea. denies abdomen pain today. no chest pain. no shortness of breath. no dizziness. no headache Review of Systems Review of Systems: All systems reviewed & are unremarkable except as noted in Subjective Physical Exam Constitutional: WD/WN, vitals as above cooperative Eyes: PERRL, conjunctivae normal, anicteric sclerae EOM intact bilaterally ENMT: external ear and nose normal, oropharynx normal Neck: trachea midline, no thyromegaly normal visual inspection Respiratory: normal respiratory effort, lungs clear to auscultation Cardiovascular: Rate/Rhythm: regular rate and regular rhythm Gastrointestinal (Abdomen): normal bowel sounds, soft, nontender, no hepatosplenomegaly Percussion/Palpation: abdomen soft Musculoskeletal: Head/Neck/Chest: normocephalic Neurologic: awake Psychiatric: Orientation: alert and cooperative Results & Data Results & Data ([facility]) Vital Signs (Past 12 Hours) Vital Signs Temp Pulse Pulse Resp BP Pulse Ox 05/12/20 07:46 37.5 C 77 16 120/66 94 05/12/20 07:25 79 05/12/20 03:31 36.6 C 84 18 142/66 H 94 (1) Elevated WBC count Leukocytosis type: other Qualified Code(s): D72.828 - Other elevated white blood cell count
[2020-05-12] MEDS ORDERED: MAGNESIUM SULFATE / D5W 1 GM/100 ML BAG IV ONE (13:45)
[2020-05-12] MEDS: SIMVASTATIN 20 MG TAB PO SCH (20:19)
[2020-05-12] MEDS: ACETAMINOPHEN 325 MG TAB PO PRN (22:12)
[2020-05-13] MEDS: metroNIDAZOLE 500 MG/100 ML BAG IV SCH ×2 (00:05→07:53)
[2020-05-13] MEDS: LEVOTHYROXINE SODIUM 75 MCG TABLET PO SCH (05:30)
[2020-05-13 07:29] LABS: Basophils # (auto) 0.02 K/uL (0-0.2); Basophils % (auto) 0.2 %; Eosinophils # (auto) 0.12 K/uL (0-0.5); Eosinophils % (auto) 1.4 %; Hematocrit (blood only) 31.8 % (37-47); Hemoglobin 10.4 g/dL (12.0-16.0); Immature Granulocytes # (auto) 0.05 K/uL (0.00-0.02); Immature Granulocytes % (auto) 0.6 %; Lymphocytes # (auto) 0.82 K/uL (1.2-3.4); Lymphocytes % (auto) 9.4 %; Mean Corpuscular Hemoglobin 29.9 pg (25-34); Mean Corpuscular Hgb Conc 32.7 g/dL (32-36); Mean Corpuscular Volume 91.4 fL (80-100); Mean Platelet Volume 8.8 fL (7.4-10.4); Monocytes # (auto) 0.96 K/uL (0.11-0.59); Neutrophils # (auto) 6.72 K/uL (1.4-6.5); Neutrophils % (auto) 77.4 %; Platelet Count 589 K/uL (130-400); RDW Standard Deviation 49.5 fL (36.4-46.3); Red Blood Count 3.48 M/uL (4.2-5.4); White Blood Count 8.69 K/uL (4.8-10.8)
[2020-05-13] MEDS: MAGNESIUM OXIDE 400 MG TAB PO SCH (07:54)
[2020-05-13] MEDS: PANTOprazole 40 MG TAB PO SCH (07:54)
[2020-05-13] MEDS: AMLODIPINE BESYLATE 5 MG TAB PO SCH (07:54)
[2020-05-13] MEDS: lisinopriL 20 MG TAB PO SCH (07:54)
[2020-05-13] MEDS: CIPROFLOXACIN / D5W 400 MG/200 ML BAG IV SCH (07:54)
[2020-05-13 07:58] LABS: BUN Creatinine Ratio 9.7 (10-20); Calcium 7.5 mg/dl (8.5-10.1); Creatinine Clr Calc Pharmacy 36.9 ml/min; Est GFR (African American) 73.5; Est GFR (Non-African American) 63.4; Magnesium 2.1 mg/dl (1.8-2.4); Phosphorus 2.2 mg/dl (2.5-4.9); Potassium 3.9 mmol/L (3.5-5.1)
--- NOTE | 2020-05-13 08:29 | XRay Report ---
XR chest 1V portable CLINICAL HISTORY: follow lung infiltrates dyspnea COMPARISON STUDY: 05/08/2020 FINDINGS: Left pleural effusion slightly increased in volume from the prior exam. The right lung marlin ins clear. The pulmonary apices are clear. Slight improvement in volume of a tiny right effusion. IMPRESSION: Stable to slightly improved exam compared to the prior study. Slight increase in volume of a left pleural effusion. ACT 112: Negative or not required by law. The above report was generated using voice recognition software. It may contain grammatical, syntax or spelling errors. Electronically signed by: Froilan Stinson M.D. 05/13/2020 8:28 AM
[2020-05-13] MEDS ORDERED: POTASSIUM PHOS 3 MMOL/1 ML INFUSION IV STA (08:52)
--- NOTE | 2020-05-13 08:59 | Hospitalist Progress Note ---
Date of Service May 13, 2020 Assessment & Plan (1) Abdominal pain: S/P laparoscopic cholecystectomy PRIOR TO THIS ADMISSION Abdominal pain with Intraabdominal Abscess (s/p drainage via ERCP on 05/04/2020) -Pt is a 89 y/o female w s/p ERCP and cholecystitis who presented w leukocytosis and found to have abd abscess s/p drainage via ERCP on 05/04/2020 -Blood cultures no growth; 05/04/2020 Intraabdominal pus grew Citrobacter freundii and Leah albicans/dubliniensis -currently on IV ciprofloxacin with IV metronidazole (previously was on empiric Zosyn at beginning of this hospital admission), and likely to need a total of 3 weeks of antibiotics total as per gastroenterology service but this can be transitioned as oral antibiotics -05/09/2020: patient with abdomen pain, CT scan of abdomen 1. Similar exam compared to the prior study. 2. Multifocal abscesses essentially unchanged given differences in scan technique. 3. Mild abdominal as well as low pelvic ascites. 4. Unchanged position of the multiple drainage catheters 5. Mild abdominal and pelvic ascites unchanged. 6. Mild body wall anasarca unchanged. 7. Bilateral pleural effusions with bibasilar atelectatic change also unchanged. -also note that patient will need CT abdomen with contrast in 3 weeks to assess resolution of the abscess and Plan to repeat ERCP for stent removal outpatient by gastroenterology service -05/13/2020: leukocytosis resolved, transition IV ciprofloxacin with IV metronidazole to oral formulation Hypoalbuminemia reflecting protein calorie malnutrition -05/09/2020: discussed with daughter Stacia that CT abdomen/pelvis not showing any new acute issues and also that Gastroenterology attending physician not advising partial parental nutrition with PICC line at this time and suggested better patient outcome with oral nutrition with more supervision. -give BOOST supplements with meals (2) Elevated WBC count: -admission leukocytosis above 30,000 -Leukocytosis secondary abdominal abscess and infection -recent labs with WBC in 20,000 -white blood cell falling down to 17,000 by 05/09/2020 -is 11,000 by 05/10/2020 , then 13,000 by 05/11/2020, 11,000 by 05/12/2020, and normalized to 8,690 by 05/13/2020 -C.difficle test on 05/11/2020 is negative -management as above (3) Pleural effusion: Left sided pleural effusion -Moderate left sided pleural effusion on CXR and CT abd/pelvis on admission -Status post thoracentesis where 550 ml pleural fluid removed, Pleural effusion does not appear to be exudative in nature, Pleural fluid cultures no growth -on room air, follow up CXR ordered on 05/08/2020: Slight increase in the size of bilateral pleural effusions. Associated left lower lobe atelectasis/consolidation. remains on room air (4) Hypertension: -hold the home dose HCTZ -had replaced home dose HCTZ with amlodipine 10 mg daily, continue amlodipine -continue the lisinopril 20 mg daily -there is prn hydralazine if needed for high blood pressure Hypokalemia -admission serum of 3 on admission -intermittently has gotten potassium supplements on this admission, currently serum potassium at goal Hypomagnesemia -intermittently has gotten magnesium supplements on this admission, magnesium currently at goal Hypophosphatemia -intermittently has gotten phosphorous supplements on this admission, -serum phosphorous 2.2 on 05/13/2020 and additional phosphorous supplements ordered Hyponatremia -avoid HCTZ, serum sodium improving Vitamin D deficiency -low vitamin D levels, mildly low calcium levels (low ionized calcium levels also), elevated PTH -patient was given some calcium gluconate and to started vitamin D 50,000 units every weekly starting on 05/11/2020 (5) Hypothyroidism: -Continue levothyroxine Generalized weakness History of lumbar spine (L1) Fracture -Due to multiple hospitalizations and recent surgical procedure -continue PT/OT evaluations with back brace, may be candidate for inpatient rehabilitation center after hospital stay however currently denied the authorization as per case management, re-assess by WednesdayMay 13 DVT Ppx: SCD Code status: FULL daughter [phone], Admission and Anticipated Discharge Date Admission Date: May 03, 2020 Subjective Patient seen and examined after breakfast while sitting up in the chair with back brace. She ate some of the breakfast. denies abdomen pain. no dizziness. no headache. no chest pain. no shortness of breath. on room air Review of Systems Review of Systems: All systems reviewed & are unremarkable except as noted in Subjective Physical Exam Constitutional: WD/WN, vitals as above cooperative Eyes: PERRL, conjunctivae normal, anicteric sclerae EOM intact bilaterally ENMT: external ear and nose normal, oropharynx normal Neck: trachea midline, no thyromegaly normal visual inspection Respiratory: normal respiratory effort, lungs clear to auscultation Cardiovascular: Rate/Rhythm: regular rate and regular rhythm Gastrointestinal (Abdomen): normal bowel sounds, soft, nontender, no hepatosplenomegaly Percussion/Palpation: abdomen soft Musculoskeletal: Head/Neck/Chest: normocephalic Neurologic: awake Psychiatric: Orientation: alert and cooperative Results & Data Results & Data ([facility]) Vital Signs (Past 12 Hours) Vital Signs Temp Pulse Pulse Resp BP BP Pulse Ox 05/13/20 07:54 36.7 C 67 18 124/66 96 05/13/20 07:29 81 05/12/20 23:06 36.5 C 84 16 128/61 93 (1) Elevated WBC count Leukocytosis type: other Qualified Code(s): D72.828 - Other elevated white blood cell count
[2020-05-13] MEDS ORDERED: POTASSIUM PHOSPHATE 21 MMOL in SODIUM CHLORIDE 0.9% 500 ML IV ONE (09:15)
[2020-05-13] MEDS: TRAMADOL HCL 50 MG TABLET PO PRN (13:28)
[2020-05-13] MEDS: metroNIDAZOLE 500 MG TAB PO SCH ×2 (13:29→21:33)
[2020-05-13] MEDS: SIMVASTATIN 20 MG TAB PO SCH (21:33)
[2020-05-13] MEDS: CIPROFLOXACIN 500 MG TAB PO SCH (21:33)
[2020-05-13] MEDS: ACETAMINOPHEN 325 MG TAB PO PRN (21:33)
[2020-05-14] MEDS: LEVOTHYROXINE SODIUM 75 MCG TABLET PO SCH (06:01)
[2020-05-14] MEDS: CIPROFLOXACIN 500 MG TAB PO SCH ×2 (08:39→20:50)
[2020-05-14] MEDS: lisinopriL 20 MG TAB PO SCH (08:39)
[2020-05-14] MEDS: MAGNESIUM OXIDE 400 MG TAB PO SCH (08:39)
[2020-05-14] MEDS: AMLODIPINE BESYLATE 5 MG TAB PO SCH (08:40)
[2020-05-14] MEDS: PANTOprazole 40 MG TAB PO SCH (08:40)
[2020-05-14] MEDS: metroNIDAZOLE 500 MG TAB PO SCH ×3 (08:40→20:50)
--- NOTE | 2020-05-14 14:03 | Hospitalist Progress Note ---
Date of Service May 14, 2020 Assessment & Plan (1) Abdominal pain: S/P laparoscopic cholecystectomy PRIOR TO THIS ADMISSION Abdominal pain with Intraabdominal Abscess (s/p drainage via ERCP on 05/04/2020) -Pt is a 89 y/o female w s/p ERCP and cholecystitis who presented w leukocytosis and found to have abd abscess s/p drainage via ERCP on 05/04/2020 -Blood cultures no growth; 05/04/2020 Intraabdominal pus grew Citrobacter freundii and Leah albicans/dubliniensis -currently on ciprofloxacin with metronidazole (previously was on empiric Zosyn at beginning of this hospital admission), and likely to need a total of 3 weeks of antibiotics total as per gastroenterology service but this can be transitioned as oral antibiotics -05/09/2020: patient with abdomen pain, CT scan of abdomen 1. Similar exam compared to the prior study. 2. Multifocal abscesses essentially unchanged given differences in scan technique. 3. Mild abdominal as well as low pelvic ascites. 4. Unchanged position of the multiple drainage catheters 5. Mild abdominal and pelvic ascites unchanged. 6. Mild body wall anasarca unchanged. 7. Bilateral pleural effusions with bibasilar atelectatic change also unchanged. -also note that patient will need CT abdomen with contrast in 3 weeks to assess resolution of the abscess and Plan to repeat ERCP for stent removal outpatient by gastroenterology service -05/13/2020: leukocytosis resolved, transition IV ciprofloxacin with IV metronidazole to oral formulation upcoming appointments 05/21/2020 11:20 AM Provider Arnulfo Mustafa MD Department [facility] 05/22/2020 1:30 PM Provider Zion Merchant MD Department Orthopaedics Spine Surgery, [facility] 06/14/2020 9:00 AM Provider Inna Brown MD Department Gastroenterology, [facility] 09/10/2020 10:00 AM Provider Arnulfo Mustafa MD Department [facility] Hypoalbuminemia reflecting protein calorie malnutrition -05/09/2020: discussed with daughter Stacia that CT abdomen/pelvis not showing any new acute issues and also that Gastroenterology attending physician not advising partial parental nutrition with PICC line at this time and suggested better patient outcome with oral nutrition with more supervision. -give BOOST supplements with meals (2) Pleural effusion: Left sided pleural effusion -Moderate left sided pleural effusion on CXR and CT abd/pelvis on admission -Status post thoracentesis where 550 ml pleural fluid removed, Pleural effusion does not appear to be exudative in nature, Pleural fluid cultures no growth -on room air, follow up CXR ordered on 05/08/2020: Slight increase in the size of bilateral pleural effusions. Associated left lower lobe atelectasis/consolidation. remains on room air (3) Hypertension: -hold the home dose HCTZ -had replaced home dose HCTZ with amlodipine 10 mg daily, continue amlodipine -continue the lisinopril 20 mg daily -there is prn hydralazine if needed for high blood pressure Hypokalemia -admission serum of 3 on admission -intermittently has gotten potassium supplements on this admission, currently serum potassium at goal Hypomagnesemia -intermittently has gotten magnesium supplements on this admission, magnesium currently at goal Hypophosphatemia -intermittently has gotten phosphorous supplements on this admission, -serum phosphorous 2.2 on 05/13/2020 and additional phosphorous supplements ordered Hyponatremia -avoid HCTZ, serum sodium improving Vitamin D deficiency -low vitamin D levels, mildly low calcium levels (low ionized calcium levels also), elevated PTH -patient was given some calcium gluconate and to started vitamin D 50,000 units every weekly starting on 05/11/2020 (4) Hypothyroidism: -Continue levothyroxine Generalized weakness History of lumbar spine (L1) Fracture -Due to multiple hospitalizations and recent surgical procedure -continue PT/OT evaluations with back brace, may be candidate for inpatient rehabilitation center after hospital stay and case is being followed by case management DVT Ppx: SCD Code status: FULL daughter [phone], Admission and Anticipated Discharge Date Admission Date: May 03, 2020 Subjective Patient doing well. no acute pain of the belly. no vomiting the food. no chest pain. no palpitations. no shortness of breath. no dizziness. no headache Review of Systems Review of Systems: All systems reviewed & are unremarkable except as noted in Subjective Physical Exam Constitutional: WD/WN, vitals as above cooperative Eyes: PERRL, conjunctivae normal, anicteric sclerae EOM intact bilaterally ENMT: external ear and nose normal, oropharynx normal Neck: trachea midline, no thyromegaly normal visual inspection Respiratory: normal respiratory effort, lungs clear to auscultation Cardiovascular: Rate/Rhythm: regular rate and regular rhythm Gastrointestinal (Abdomen): normal bowel sounds, soft, nontender, no hepatosplenomegaly Percussion/Palpation: abdomen soft Musculoskeletal: Head/Neck/Chest: normocephalic Neurologic: awake Psychiatric: Orientation: alert and cooperative Results & Data Results & Data ([facility]) Vital Signs (Past 12 Hours) Vital Signs Temp Pulse Pulse Resp BP BP Pulse Ox 05/14/20 12:00 36.6 C 78 18 101/57 L 93 05/14/20 07:39 36.6 C 86 18 115/64 97 05/14/20 07:27 79 05/14/20 02:53 36.8 C 98 H 19 134/65 96
[2020-05-14] MEDS: ACETAMINOPHEN 325 MG TAB PO PRN (20:49)
[2020-05-14] MEDS: SIMVASTATIN 20 MG TAB PO SCH (20:50)
[2020-05-15] MEDS: LEVOTHYROXINE SODIUM 75 MCG TABLET PO SCH (06:00)
[2020-05-15] MEDS: AMLODIPINE BESYLATE 5 MG TAB PO SCH (07:32)
[2020-05-15] MEDS: MAGNESIUM OXIDE 400 MG TAB PO SCH (07:32)
[2020-05-15] MEDS: metroNIDAZOLE 500 MG TAB PO SCH ×2 (07:32→14:08)
[2020-05-15] MEDS: CIPROFLOXACIN 500 MG TAB PO SCH (07:32)
[2020-05-15] MEDS: lisinopriL 20 MG TAB PO SCH (07:33)
[2020-05-15] MEDS: PANTOprazole 40 MG TAB PO SCH (07:33)
[2020-05-15 08:56] LABS: Basophils # (auto) 0.03 K/uL (0-0.2); Basophils % (auto) 0.3 %; Eosinophils # (auto) 0.13 K/uL (0-0.5); Eosinophils % (auto) 1.3 %; Hematocrit (blood only) 34.3 % (37-47); Lymphocytes # (auto) 1.05 K/uL (1.2-3.4); Lymphocytes % (auto) 10.3 %; Mean Corpuscular Hemoglobin 29.4 pg (25-34); Mean Corpuscular Hgb Conc 32.1 g/dL (32-36); Mean Corpuscular Volume 91.7 fL (80-100); Mean Platelet Volume 8.9 fL (7.4-10.4); Monocytes # (auto) 0.88 K/uL (0.11-0.59); Monocytes % (auto) 8.7 %; Neutrophils # (auto) 7.96 K/uL (1.4-6.5); Neutrophils % (auto) 78.4 %; Platelet Count 626 K/uL (130-400); RDW Standard Deviation 49.8 fL (36.4-46.3); Red Blood Count 3.74 M/uL (4.2-5.4); White Blood Count 10.15 K/uL (4.8-10.8)
[2020-05-15 09:29] LABS: BUN Creatinine Ratio 12.9 (10-20); Calcium 8.4 mg/dl (8.5-10.1); Creatinine Clr Calc Pharmacy 32.9 ml/min; Est GFR (African American) 65.7; Est GFR (Non-African American) 56.7; Magnesium 1.8 mg/dl (1.8-2.4); Phosphorus 1.9 mg/dl (2.5-4.9); Potassium 4.1 mmol/L (3.5-5.1)
[2020-05-15 11:28] VITALS: O2SAT 97
[2020-05-15] MEDS: POT PHOSPHATE MONOBASIC W/ SOD TAB PO SCH ×2 (14:08→16:08)
--- NOTE | 2020-05-15 14:33 | Hospitalist Progress Note ---
Date of Service May 15, 2020 Assessment & Plan (1) Abdominal pain: per Dr. Jluis Be's notes (hospitalist physician): S/P laparoscopic cholecystectomy PRIOR TO THIS ADMISSION Abdominal pain with Intraabdominal Abscess (s/p drainage via ERCP on 05/04/2020) -Pt is a 89 y/o female w s/p ERCP and cholecystitis who presented w leukocytosis and found to have abd abscess s/p drainage via ERCP on 05/04/2020 -Blood cultures no growth; 05/04/2020 Intraabdominal pus grew Citrobacter freundii and Leah albicans/dubliniensis -currently on ciprofloxacin with metronidazole (previously was on empiric Zosyn at beginning of this hospital admission), and likely to need a total of 3 weeks of antibiotics total as per gastroenterology service -05/09/2020: patient with abdomen pain, CT scan of abdomen 1. Similar exam compared to the prior study. 2. Multifocal abscesses essentially unchanged given differences in scan technique. 3. Mild abdominal as well as low pelvic ascites. 4. Unchanged position of the multiple drainage catheters 5. Mild abdominal and pelvic ascites unchanged. 6. Mild body wall anasarca unchanged. 7. Bilateral pleural effusions with bibasilar atelectatic change also unchanged. - patient will need 9 more days of ciprofloxacin and metronidazole to complete 21 days of antibiotic therapy Please order probiotics as well - also note that patient will need CT abdomen with contrast in 3 weeks to assess resolution of the abscess and Plan to repeat ERCP for stent removal outpatient by gastroenterology service upcoming appointments 05/21/2020 11:20 AM Provider Arnulfo Mustafa MD Department [facility] 05/22/2020 1:30 PM Provider Zion Merchant MD Department Orthopaedics Spine Surgery, [facility] 06/14/2020 9:00 AM Provider Inna Brown MD Department Gastroenterology, [facility] 09/10/2020 10:00 AM Provider Arnulfo Mustafa MD Department [facility] Hypoalbuminemia reflecting protein calorie malnutrition -05/09/2020: discussed with daughter Stacia that CT abdomen/pelvis not showing any new acute issues and also that Gastroenterology attending physician not advising partial parental nutrition with PICC line at this time and suggested better patient outcome with oral nutrition with more supervision. -give BOOST supplements with meals (2) Pleural effusion: Left sided pleural effusion per Dr. Jluis Be's notes (hospitalist physician): -Moderate left sided pleural effusion on CXR and CT abd/pelvis on admission -Status post thoracentesis where 550 ml pleural fluid removed, Pleural effusion does not appear to be exudative in nature, Pleural fluid cultures no growth -on room air, follow up CXR ordered on 05/08/2020: Slight increase in the size of bilateral pleural effusions. Associated left lower lobe atelectasis/consolidation. remains on room air -repeat chest xray in 1 week, consider diuretics with close monitoring of electrolytes and kidney function, if pleural effusion is progressing (3) Hypertension: -hold the home dose HCTZ -had replaced home dose HCTZ with amlodipine 10 mg daily, --> BP stable, d/c Amlodipine -continue the lisinopril 20 mg daily - monitor BP daily Hypokalemia -admission serum of 3 on admission -intermittently has gotten potassium supplements on this admission, currently serum potassium at goal - repeat basic metabolic panel in 1-2 days, then monitor accordingly Hypomagnesemia -intermittently has gotten magnesium supplements on this admission, magnesium currently at goal - repeat magnesium in 1-2 days, then monitor accordingly Hypophosphatemia -intermittently has gotten phosphorous supplements on this admission, -serum phosphorous 1.9 K phos 2 tabs QID ordered -repeatphosphorus in 1-2 days, then monitor accordingly Hyponatremia - likely from hypovolemia -avoid HCTZ, serum sodium improving - Na 130 on discharge day - repeat basic metabolic panel in 1-2 days, then monitor accordingly Vitamin D deficiency -low vitamin D levels, mildly low calcium levels (low ionized calcium levels also), elevated PTH -patient was given some calcium gluconate and to started vitamin D 50,000 units every weekly starting on 05/11/2020 (4) Hypothyroidism: -Continue levothyroxine Generalized weakness History of lumbar spine (L1) Fracture -Due to multiple hospitalizations and recent surgical procedure -continue PT/OT with back brace DVT Ppx: SCD Code status: FULL daughter [phone], Admission and Anticipated Discharge Date Admission Date: May 03, 2020 Subjective ff up for intraabdominal abscess, s/p drainage Seen resting in bed, sleeping but easily awakened Comfortable, not in distress States she feels fine overall today No abdominal pain, nausea vomiting, tolerating diet well Ambulated in the hallways today with PT tolerated well States pain is well controlled No chest pain, shortness of breath or palpitations, dizziness No other symptoms States she is ready and would like to be discharged today Review of Systems Review of Systems: All systems reviewed & are unremarkable except as noted in HPI & below Physical Exam Physical Exam: General- oriented x 2, not in distress, speaks in sentences with no effort or accessory muscle use Eyes- anicteric Neck- no JVD Lungs- clear breath sounds bilaterally, no rales/wheezes Heart- normal rate, regular rhythm; no murmurs Abdomen- normal bowel sounds, nondistended, soft, nontender Extremities- no pretibial edema, no calf tenderness Neuro- alert, oriented x 3; no gross focal neurologic deficits Skin- warm & dry Results & Data Results & Data ([facility]) Vital Signs (Past 12 Hours) Vital Signs Temp Pulse Resp BP BP Pulse Ox 05/15/20 11:28 36.9 C 85 18 94/53 L 97 05/15/20 07:21 36.6 C 90 18 125/64 95 05/15/20 03:00 36.6 C 87 19 150/71 H 96 Laboratory Results Laboratory Results - last 24 hr 05/15/20 05/15/20 08:22 08:22 WBC 10.15 RBC 3.74 L Hgb 11.0 L Hct 34.3 L MCV 91.7 MCH 29.4 MCHC 32.1 RDW Std Deviation 49.8 H RDW Coeff of Isai 15.0 H Plt Count 626 H MPV 8.9 Immature Gran % (Auto) 1.0 Neut % (Auto) 78.4 Lymph % (Auto) 10.3 [place] % (Auto) 8.7 Eos % (Auto) 1.3 Baso % (Auto) 0.3 Neut # (Auto) 7.96 H Lymph # (Auto) 1.05 L [place] # (Auto) 0.88 H Eos # (Auto) 0.13 Baso # (Auto) 0.03 Immature Gran # (Auto) 0.10 H Sodium 130 L Potassium 4.1 Chloride 100 Carbon Dioxide 22 Anion Gap 8.0 BUN 12 Creatinine 0.90 Est Cr Clr Drug Dosing 32.9 Est GFR ( Amer) 65.7 Est GFR (Non-Af Amer) 56.7 BUN/Creatinine Ratio 12.9 Glucose 128 H Calcium 8.4 L Phosphorus 1.9 L Magnesium 1.8
[2020-05-15 14:54] VITALS: BP 116/61; TEMP 98.1
--- NOTE | 2020-05-15 15:11 | Discharge Summary ---
Date of Service May 15, 2020 Admission HPI Per Admitting Provider This is an 89yo F with a PMH of HTN, hypothyroidism, HLD and recent ERCP with stone removal and CBD stent placement as well as subsequent cholecystectomy last week at [facility]. She is presenting from [place] with leukocytosis of 31K. Has been experiencing mild upper abdominal pain described as gas pain but denies nausea or vomiting. Has been passing gas and had a bowel movement. Feels extremely fatigued and ROS is difficult to fully obtain. No fever, chills, lightheadedness, headache, chest pain or dysuria. Does endorse SOB with "lungs filling with fluid". CT abd/pelvis with evidence of several large and multilocul ated fluid collections in the upper and mid abdomen concerning for abscess vs bile leak. Both general surgery and GI services were consulted on this patient with plans for Dr. Brown to drain collections via EUS as well as cholangiogram. Patient to remain NPO on broad spectrum antibiotics. Admission Exam Per Admitting Provider On exam patient is thin, frail, mild distress secondary to pain, normocephalic atraumatic, lungs--decreased breath sounds predominantly on left, S1-S2, +murmur, no pedal edema, abdomen is soft, nontender, bowel sounds are present, grossly no focal neurological deficits. Principal Diagnosis Abdominal pain with Intraabdominal Abscess (s/p drainage via ERCP on 05/04/2020) S/P laparoscopic cholecystectomy PRIOR TO THIS ADMISSION Discharge Exam General- oriented x 2, not in distress, speaks in sentences with no effort or accessory muscle use Eyes- anicteric Neck- no JVD Lungs- clear breath sounds bilaterally, no rales/wheezes Heart- normal rate, regular rhythm; no murmurs Abdomen- normal bowel sounds, nondistended, soft, nontender Extremities- no pretibial edema, no calf tenderness Neuro- alert, oriented x 3; no gross focal neurologic deficits Discharge Data Allergies Allergy/AdvReac Type Severity Reaction Status Date / Time hydrocodone Allergy Unknown Verified 05/03/20 12:55 Consultations 05/03/20 17:21 ED Decision to Admit Stat 05/03/20 20:34 Consult Case Management - Discharge Planning Stat Consult Gastroenterology Routine Consult General Surgery Routine 05/04/20 08:00 Consult Pulmonology Routine Procedures Performed Operation Date: 05/04/20 07:30 Actual Procedures p Endoscopic Retrograde Cholangiopancreatogram, Endoscopic Ultrasonography Upper(Not Applicable) - Inna Brown MD Ordered Studies 05/03/20 13:27 CT abd pelvis IV con only Stat Lung bases: The heart is normal in size noting a small pericardial effusion. The coronary arteries are densely calcified. There is a small to moderate left pleural effusion with associated left basilar atelectasis. Dependent atelectasis is also seen at the right lung base. Liver: The contrast-enhanced liver is normal in size, contour, and attenuation. There is minimal intrahepatic biliary ductal dilatation. The hepatic veins and portal veins are patent. Gallbladder: The gallbladder surgically absent noting clips in the gallbladder fossa. A common bile duct stent is in place. Pneumobilia suggests patency of the stent. Spleen: Normal in size and attenuation. Pancreas: Moderately atrophic and grossly unremarkable. Adrenal glands: Unremarkable. Kidneys: The contrast enhanced kidneys demonstrate mild cortical atrophy and are without hydronephrosis. The kidneys enhance symmetrically. Numerous subcentimeter cortical hypodensities likely represent cysts but are too small for definitive characterization. No enhancing cortical mass is clearly identified. Abdominal vasculature: There is advanced atherosclerotic calcification and mild ectasia of the abdominal aorta. Bowel: Edema of the stomach and duodenum is likely on a reactive basis. There is no bowel obstruction. Moderate diverticulosis is noted in the sigmoid colon without CT evidence of acute diverticulitis. The appendix is well-visualized and normal. Peritoneum: There is trace perihepatic and perisplenic ascites, as well as trace free fluid in the pelvis. No intraperitoneal free air is identified. There are several multiloculated complex fluid collections identified in the upper and mid abdomen. The largest collection is located between the stomach and the left lobe of the liver as seen on image #115. This measures approximately 6 x 7 x 14 cm in aggregate dimension, and a loculation extends superiorly along the anterior margin of the spleen to the left hemidiaphragm. A multiloculated collection tracking along the mesentery extends from the anterior pancreatic head and inferior margin of the stomach tracking inferiorly to level of the pelvic inlet as seen on image #189. This envelopes several mesenteric vessels and measures approximately 10.5 x 7 x 4 cm. A small subhepatic loculated collection on image #141 measures approximately 3.5 x 4.5 x 2.5 cm. Lymphadenopathy: None. Pelvic viscera: The bladder is distended and there are foci of intraluminal gas. The bladder is otherwise normal as imaged. The uterus is surgically absent. No adnexal lesion is seen. Skeletal structures: The skeletal structures are osteopenic. Moderate lumbosacral spondylosis is observed. There is a mild and subacute appearing supe rior endplate compression fracture of L1. No lytic or blastic lesions are seen. There are healed left pubic ring fractures. IMPRESSION: 1. The gallbladder is surgically absent and the common bile duct stent is in place. Pneumobilia suggests patency of the stent. 2. There are several large and multiloculated fluid collections in the upper and mid abdomen as detailed above. Given the patient's history and leukocytosis these are highly concerning for abscesses. Bile leak would be impossible to exclude, and if there is clinical concern for bile leak a nuclear hepatobiliary scan should be considered. 3. Small to moderate left pleural effusion with associated atelectasis. 4. Gastric and duodenal edema is likely on a reactive basis. 5. There is a mild and subacute appearing compression fracture of L1. Correlate for point tenderness. 6. Foci of gas within the bladder lumen are likely related to rotation. Correlation with clinical findings and urinalysis will be required. 7. Trace abdominopelvic ascites. 8. Additional findings as above. 05/04/20 07:00 FL ERCP biliary ductal Routine 05/04/20 07:19 US lower EUS PACS images Routine 05/04/20 07:43 US upper EUS PACS images Routine 05/05/20 11:25 US point of care ultrasound Urgent 05/06/20 12:35 CT abd pelvis wo con Routine IMPRESSION: 1. Technically limited study secondary to the absence of intravenous contrast 2. Bilateral pleural effusions and basilar airspace opacities likely atelectatic 3. Surgically absent gallbladder with a patent biliary enteric stent 4. Increasing low volume ascites 5. Interval transgastric drainage of a large cyst/abscess in the gastrohepatic ligament. This cyst/abscess is markedly smaller. two transgastric pigtail catheters are visualized 6. Persistent poorly defined complex fluid collection posterior to the gastric antrum, similar in size to the preceding study 7. No evidence of bowel obstruction. No evidence of free air 8. Normal appendix. 9. Diverticulosis. No evidence of acute diverticulitis 05/09/20 14:15 CT abd pelvis oral and IV con Routine 1. Similar exam compared to the prior study. 2. Multifocal abscesses essentially unchanged given differences in scan te chnique. 3. Mild abdominal as well as low pelvic ascites. 4. Unchanged position of the multiple drainage catheters 5. Mild abdominal and pelvic ascites unchanged. 6. Mild body wall anasarca unchanged. Hospital Course (1) Abdominal pain: per Dr. Jluis Be's notes (hospitalist physician): Abdominal pain with Intraabdominal Abscess (s/p drainage via ERCP on 05/04/2020) S/P laparoscopic cholecystectomy PRIOR TO THIS ADMISSION -Pt is a 89 y/o female w s/p ERCP and cholecystitis who presented w leukocytosis and found to have abd abscess s/p drainage via ERCP on 05/04/2020 -Blood cultures no growth; 05/04/2020 Intraabdominal pus grew Citrobacter freundii and Leah albicans/dubliniensis -currently on ciprofloxacin with metronidazole (previously was on empiric Zosyn at beginning of this hospital admission), and likely to need a total of 3 weeks of antibiotics total as per gastroenterology service -05/09/2020: patient with abdomen pain CT scan of abdomen 1. Similar exam compared to the prior study. 2. Multifocal abscesses essentially unchanged given differences in scan t echnique. 3. Mild abdominal as well as low pelvic ascites. 4. Unchanged position of the multiple drainage catheters 5. Mild abdominal and pelvic ascites unchanged. 6. Mild body wall anasarca unchanged. 7. Bilateral pleural effusions with bibasilar atelectatic change also unchanged. - significantly improved, tolerating diet well - patient will need 9 more days of ciprofloxacin and metronidazole to complete 21 days of antibiotic therapy Please order probiotics as well - also note that patient will need CT abdomen with contrast in 3 weeks to assess resolution of the abscess and Plan to repeat ERCP for stent removal outpatient by gastroenterology service upcoming appointments 05/21/2020 11:20 AM Provider Arnulfo Mustafa MD Department [facility] Emma chiu 05/22/2020 1:30 PM Provider Zion Merchant MD Department Orthopaedics Spine Surgery, [facility] Herman Holgu[place] 06/14/2020 9:00 AM Provider Inna Brown MD Department Gastroenterology, [facility] [place] 09/10/2020 10:00 AM Provider Arnulfo Mustafa MD [facility] Hypoalbuminemia reflecting protein calorie malnutrition -05/09/2020: discussed with daughter Stacia that CT abdomen/pelvis not showing any new acute issues and also that Gastroenterology attending physician not advising partial parental nutrition with PICC line at this time and suggested better patient outcome with oral nutrition with more supervision. -give BOOST supplements with meals (2) Pleural effusion: Left sided pleural effusion per Dr. Jluis Be's notes (hospitalist physician): -Moderate left sided pleural effusion on CXR and CT abd/pelvis on admission -Status post thoracentesis where 550 ml pleural fluid removed, Pleural effusion does not appear to be exudative in nature, Pleural fluid cultures no growth -on room air, follow up CXR ordered on 05/08/2020: Slight increase in the size of bilateral pleural effusions. Associated left lower lobe atelectasis/consolidation. remains on room air -repeat chest xray in 1 week, consider diuretics with close monitoring of electrolytes and kidney function, if pleural effusion is progressing (3) Hypertension: -hold the home dose HCTZ -had replaced home dose HCTZ with amlodipine 10 mg daily, --> BP stable, d/c Amlodipine -continue the lisinopril 20 mg daily - monitor BP daily Hypokalemia -admission serum of 3 on admission -intermittently has gotten potassium supplements on this admission, currently serum potassium at goal - repeat basic metabolic panel in 1-2 days, then monitor accordingly Hypomagnesemia -intermittently has gotten magnesium supplements on this admission, magnesium currently at goal - repeat magnesium in 1-2 days, then monitor accordingly Hypophosphatemia -intermittently has gotten phosphorous supplements on this admission, -serum phosphorous 1.9 K phos 2 tabs QID ordered -repeatphosphorus in 1-2 days, then monitor accordingly Hyponatremia - likely from hypovolemia -avoid HCTZ, serum sodium improving - Na 130 on discharge day - repeat basic metabolic panel in 1-2 days, then monitor accordingly Vitamin D deficiency -low vitamin D levels, mildly low calcium levels (low ionized calcium levels also), elevated PTH -patient was given some calcium gluconate and to started vitamin D 50,000 units every weekly starting on 05/11/2020 (4) Hypothyroidism: -Continue levothyroxine Generalized weakness History of lumbar spine (L1) Fracture -Due to multiple hospitalizations and recent surgical procedure -continue PT/OT with back brace DVT Ppx: SCD Code status: FULL daughter [phone], Total Time Total Time Spent Total Time Spent (In Minutes): 55 minutes Discharge Plan Discharge Items Patient Disposition: [facility] Reason For Visit: INTRAABD ABSCESS VS BILE LEAK Discharge Diagnosis: Abdominal pain with Intraabdominal Abscess (s/p drainage via ERCP on 05/04/2020) Leukocytosis Left sided pleural effusion Hypokalemia Hypomagnesemia Hypophosphatemia Hyponatremia S/P laparoscopic cholecystectomy PRIOR TO THIS ADMISSION History of lumbar spine (L1) Fracture Hypoalbuminemia reflecting protein calorie malnutrition Condition on Discharge: Good Activity: As commented below Activity Comment: Always with assistance, with rolling walker, continue PT and OT, fall precautions please Lifting: Wait until after follow-up appointment Exercise/Sports: Wait until after follow-up appointment Non-emergency contact: Primary Care Provider Call non-emergency contact if: you have any medication questions, your symptoms worsen, your pain is not controlled, your pain is worsening, your pain is unusual for you, your pain is concerning for you and you have a fever Follow-up/Referrals: Blayne Trent MD [Primary Care Provider] - Diet: Heart Healthy Addtl Attending Provider Instructions: PLEASE REFER TO ACCOMPANYING HOSPITAL DISCHARGE SUMMARY FOR FULL DETAILS. Follow-up appointments: 05/21/2020 11:20 AM Provider Arnulfo Mustafa MD Department [facility] 05/22/2020 1:30 PM Provider Zion Merchant MD Department Orthopaedics Spine Surgery, [facility] [place] 06/14/2020 9:00 AM Provider Inna Brown [facility] [place] 09/10/2020 10:00 AM Provider Arnulfo Mustafa MD Department [facility] Pending Studies at Discharge: Yes Studies:: Repeat basic metabolic panel, magnesium, phosphorus in 1 to 2 days, and monitor accordingly. Repeat Chest xray in [address] abdomen and pelvis 3 weeks. Repeat ERCP care of network cable installer in 3 to 4 weeks. Please refer to accompanying hospital discharge summary for full details. [facility]one [facility] Sk[facility] Items Patient informed of condition?: Yes DNR: No Discharge Level of Care: Skilled Communicable Disease: No Discharge Prognosis: Improving Lines: None Urinary Catheter: No Medications and DC Order Prescriptions: New lisinopril 20 mg Tablet 20 mg PO QAM Qty: 30 RF: 0 metronidazole 500 mg Tablet 500 mg PO TID Qty: 27 RF: 0 ciprofloxacin HCl 500 mg Tablet 500 mg PO BID Qty: 18 RF: 0 Phospha 250 Neutral 250 mg Tablet 2 tab PO QID Qty: 24 RF: 0 magnesium oxide 400 mg (241.3 mg magnesium) Tablet 400 mg PO QAM Qty: 7 RF: 0 ergocalciferol (vitamin D2) 1,250 mcg (50,000 unit) Capsule 50,000 unit PO Sa@0900 Qty: 4 RF: 0 Continued bisacodyl 10 mg Suppository 10 mg ID .Q3D PRN (Reason: Constipation) RF: 0 omeprazole 20 mg Capsule,Delayed Release(Dr/Ec) 20 mg PO QAM RF: 0 lidocaine 4 % Adhesive Patch,Medicated 1 patch TOPICAL DAILY RF: 0 diphenhydramine HCl [Benadryl] 25 mg Capsule 25 mg PO HS PRN (Reason: .ITCH OR INSOMNIA) RF: 0 docusate sodium 100 mg Capsule 100 mg PO BID PRN (Reason: Constipation) RF: 0 levothyroxine 75 mcg Tablet 75 mcg PO QAM RF: 0 simvastatin 20 mg Tablet 20 mg PO HS RF: 0 tramadol 50 mg Tablet 25 mg PO Q6H PRN (Reason: .MOD-SEVERE PAIN # 6-10) RF: 0 acetaminophen 325 mg Tablet 650 mg PO Q4H MDD 3G PRN (Reason: .# 1-5 PAIN) RF: 0 simethicone 80 mg Tablet,Chewable 80 mg PO Q4H PRN (Reason: .GAS) RF: 0 Discontinued lisinopril-hydrochlorothiazide 20-12.5 mg Tablet 1 tab PO DAILY RF: 0 Discharge Orders: Discharge Order (Routine); Ordered 05/15/20 Ordered By: Sualo Roy Admission Data Admit Date/Time: 05/03/20 18:43 Attending Provider: Saulo Roy Admit Provider: Jaspreet Olguin Primary Care Provider: Blayne Trent Other Providers: Marlo Ocampo ; Jaspreet Olguin ; Inna Brown ; Froilan Bryant ; Xander Landis ; Be Roberts ; Jemima Ruth ; Panchito Uribe ; Lalo Myles ; Alex Cat ; Polina Austin ; Salvador Moore ; Michael Priest ; Jluis Be
[2020-05-15 15:56] VITALS: PULSE 81
== END 2020-05-15 18:47 | DRG 857 ==
LOC: ED 12:32 → SUATTDRO 18:43 → 2N 18:43